=== PATIENT | male | born 1935 | race Caucasian/White ===

== ENCOUNTER 2017-09-22 02:32 | Inpatient (IN) | payer MEDICARE, OTHER ==
[2017-09-22 03:15] LABS: #Eosinphils 0.3 thou/uL (0.0-0.7); #Lymphocytes 1.6 thou/uL (1.20-3.40); #Monocytes 0.7 thou/uL (0.11-0.59); #Neutrophils 4.6 thou/uL (1.40-6.50); %Basophils 0.1 % (0.0-1.0); %Eosinophils 3.9 % (0.0-10.0); %Lymphocytes 22.3 % (21.0-51.0); %Monocytes 9.2 % (0.0-10.0); Hematocrit 40.3 % (42.0-52.0); Mean Platelet Volume 7.6 fL (7.4-10.4); White Blood Cell (WBC) Count 7.1 thou/uL (4.8-10.8)
[2017-09-22 03:20] LABS: Prothrombin Time 12.9 SEC (12.0-14.7)
[2017-09-22 03:32] LABS: ALT (SGPT) 19 U/L (8-55); AST (SGOT) 22 U/L (5-34); Alkaline Phosphatase 73 U/L (40-150); Anion Gap 12 mmol/L (10-20); BUN (Urea Nitrogen) 31 mg/dL (8.4-25.7); Bilirubin, Total 0.4 mg/dL (0.2-1.2); Calc. Creatinine Clearance 0 mL/min (70-130); Calcium 9.4 mg/dL (7.8-10.44); Carbon Dioxide 25 mmol/L (23-31); Chloride 104 mmol/L (98-107); Estimated GFR-MDRD 53; Globulin 2.7 g/dL (2.4-3.5); Magnesium 1.7 mg/dL (1.6-2.6); Protein, Total 6.5 g/dL (5.8-8.1)
[2017-09-22 03:35] LABS: Troponin I 0.011 ng/mL (< 0.028)
[2017-09-22] MEDS ORDERED: Nitroglycerin 0.4 MG TAB (25 Tab Bottle) ONE (05:47)
[2017-09-22] MEDS ORDERED: Nitroglycerin 2% Ointment 1 INCH/1 GM Packet ONE (06:00)
[2017-09-22 06:55] LABS: Troponin I 0.036 ng/mL (< 0.028)
--- NOTE | 2017-09-22 07:28 | RAD ---
FRONTAL VIEW CHEST: Date: 09/22/17 INDICATION: Chest pain. FINDINGS: Lungs are hyperinflated. No consolidation, effusion, or pneumothorax. No free air beneath the hemidia phragms. Cardiac silhouette is normal in size. IMPRESSION: 1. No lobar consolidation. 2. COPD. POS: [facility]
[2017-09-22] MEDS ORDERED: Ondansetron ODT 4 MG TAB PO PRN (08:08)
[2017-09-22] MEDS ORDERED: Ondansetron HCl/PF 4 MG/2 ML Vial IVP PRN ×2 (08:08→20:14)
[2017-09-22] MEDS ORDERED: Acetaminophen 325 MG TAB PO PRN ×2 (08:08→20:14)
[2017-09-22 10:03] LABS: Troponin I 0.054 ng/mL (< 0.028)
[2017-09-22] MEDS ORDERED: Morphine 4 MG/ML VIAL SLOW IVP PRN ×2 (11:22→20:14)
[2017-09-22] MEDS ORDERED: Nitroglycerin 0.4 MG TAB (25 Tab Bottle) SL PRN (11:26)
[2017-09-22] MEDS ORDERED: Enoxaparin Sodium 80 MG/0.8 ML SYRINGE SC SCH ×2 (12:00→21:00)
[2017-09-22] MEDS ORDERED: Docusate Sodium 100 MG/10 ML UDCUP PO PRN (12:23)
[2017-09-22] MEDS ORDERED: Polyethylene Glycol 3350 17 GM Packet PO PRN (12:23)
[2017-09-22] MEDS ORDERED: Sodium Chloride 0.9% 1,000 ML IV SCH (14:15)
[2017-09-22] MEDS ORDERED: Heparin 1000 UNIT/NS 500ML(OR) 1,000 ML ONE (14:15)
[2017-09-22] MEDS ORDERED: Communication Order-Pharmacy FS SCH (14:15)
--- NOTE | 2017-09-22 14:18 | HP ---
DATE OF ADMISSION: 09/22/2017 PRIMARY CARE PHYSICIAN: Dr. Juliocesar Zavala. CHIEF COMPLAINT: Chest pain. HISTORY OF PRESENT ILLNESS: The patient states he has been having some substernal pressure and chest tightness with ambulation longer than 20 minutes in duration. He subsequently had substernal chest pain that then radiated to left arm and left chin and neck while at rest and presented to the emergency department in the early hours of the morning. Initial troponin was found to be negative. Patient's family members at bedside verbalized understanding regarding elevation of troponin and 2 indeterminate levels. He has no prior coronary artery disease history. Does have a history of hypertension and hyperlipidemia, well controlled. He is stable on his baseline medications including MiraLax and docusate sodium regarding his history of constipation. He has no other acute complaints currently. FORMAL REVIEW OF SYSTEMS: No fevers, no chills, no cough, no congestion. Positive chest pain, worse with exertion, radiation to left arm and neck, no abdominal pain. Positive constipation. No dysuria or urinary frequency. No flank pain. No lower extremity edema. REVIEW OF THE MEDICAL HISTORY: Includes hypertension, hyperlipidemia, constipation and thrombocytopenia. PAST FAMILY/MEDICAL/SURGICAL/AND SOCIAL HISTORY: Include prior tobacco smoker, quit in 1990, 6-usbd-xuy-day history. History of shingles. No listed surgeries. No known drug allergies. Lives with spouse, ambulatory, unassisted. REVIEW OF LABORATORY WORK: White blood cell count 7.1, hemoglobin of 14.3, platelet count of 142. INR of 1.0. Potassium of 3.3, sodium of 138, chloride of 104, creatinine of 1.29, glucose of 142, magnesium of 1.7, calcium of 9.4, AST of 22, ALT of 19, CK-MB of 1.6, troponin 0.011, second troponin 0.036, third troponin 0.054, serum albumin of 3.8. Chest x-ray on admission, hyperinflation, possibly consistent with COPD, no lobular consolidation or otherwise acute cardiopulmonary events. PHYSICAL EXAMINATION: VITAL SIGNS: On arrival to the floor, temperature of 98.5, pulse of 92, respiratory rate of 18, oxygen saturation of 95% on room air, blood pressure 171 /81. GENERAL: The patient is alert and oriented, in no acute distress. HEENT: Head is normocephalic, atraumatic. Extraocular movements are intact. Sclerae are clear. Oral mucosa is moist. NECK: Supple, nontender. HEART: Regular rate and rhythm, no murmurs auscultated. Nitro paste to right anterior chest wall intact. LUNGS: Clear to auscultation bilaterally. No rubs or wheezes. ABDOMEN: Soft, nontender, positive bowel sounds throughout. EXTREMITIES: Lower extremities without cyanosis or edema. Peripheral pulses, dorsalis pedis, 2+ bilaterally. NEUROLOGIC: The patient is alert and oriented x3, no focal deficits. Speech is normal. ASSESSMENT AND PLAN: 1. Chest pain, rule out acute coronary syndrome. 2. Elevated troponin. 3. ST depression. 4. Hyperlipidemia. 5. Hypertension. 6. Constipation. 7. Thrombocytopenia. PLAN: Troponins have been trended since early a.m. with indeterminate rise. Repeat EKG at 6 in the morning showed ST depression in continuous leads in V4, 5 and 6. Patient's chest pain has been relieved with nitroglycerin. The patient tolerated aspirin. Cardiology requesting holding Plavix and Lovenox for possible intervention. Desired to continue patient's home angiotensin receptor christopher and statin medication within the next 24 hours. Our goal is additionally adding on full-dose aspirin as well as continuation of current therapy of morphine nitrogen p.r.n. and oxygen saturations to be held above 95% acutely, continuing patient's home MiraLax and docusate sodium as able currently and n.p.o. exceptions sips and chips for meds. Prior noted thrombocytopenia has been much improved; however, from prior check has been down 40 points. No acute bleeding. We will continue to trend while in the hospital. The patient had responded to the prednisone therapy on an outpatient basis here recently in the last couple of months. He remains to have petechiae to lower extremities bilaterally on exam today. MTDD
[2017-09-22] MEDS ORDERED: Heparin 10,000 UNITS/1 ML VIAL ONE ×5 (14:19→14:22)
[2017-09-22] MEDS ORDERED: Iopamidol 370 76% 100 ML VIAL ONE (14:50)
[2017-09-22] MEDS ORDERED: Fentanyl 100 MCG/2 ML VIAL ONE ×2 (14:50→16:15)
[2017-09-22] MEDS ORDERED: Iopamidol 370 76% 50 ML VIAL FS ONE (14:50)
[2017-09-22] MEDS ORDERED: Midazolam HCl 2 mg/2 ml Vial ONE ×2 (14:50→16:15)
[2017-09-22] MEDS ORDERED: Propofol 200 MG/20 ML VIAL ONE (15:08)
[2017-09-22] MEDS ORDERED: Protamine Sulfate 250 MG/25 ML VIAL ONE (15:08)
[2017-09-22] MEDS ORDERED: PHENYLEPHRINE-NS 100 MCG/ML 10 ML SYRINGE ONE (15:08)
[2017-09-22] MEDS ORDERED: Aminocaproic Acid 5 GM/20 ML VIAL ONE (15:08)
[2017-09-22] MEDS ORDERED: Heparin 30,000 units/30 ml VIAL ONE (15:08)
[2017-09-22] MEDS ORDERED: Nitroglycerin 4.9 GM Bottle ONE (15:22)
[2017-09-22] MEDS ORDERED: Metoprolol Tartrate 5 MG/5 ML VIAL ONE (15:22)
[2017-09-22] MEDS ORDERED: Fentanyl 250 MCG/5 ML VIAL ONE (15:24)
[2017-09-22] MEDS ORDERED: Midazolam HCl 5 mg/5 ml Vial ONE (15:25)
--- NOTE | 2017-09-22 15:33 | CON ---
DATE OF CONSULTATION: 09/22/2017 HISTORY OF PRESENT ILLNESS: Ras Palacios is an 82-year-old white male who has been having exertional chest tightness for the last 2 years. Rarely, this would also cause left arm tingling. If he would walk approximately 800 feet, this would start. Also at times when he would lie in bed, this would start. If he would drink some 7 Up and belch this would then be relieved in 5 minutes. He denied any shortness of breath, nausea, vomiting or diaphoresis with this discomfort. He could have this discomfort on a daily basis depending upon his activity level. This morning at 2 a.m., he got up to go to the bathroom and on his way back to bed, started having the discomfort. He again drank some 7 Up and resolved after 5 minutes. It then started again and again resolved after 5 minutes. With his third episode, he then decided to come to the emergency room and on the way to the hospital again, this resolved. He states that none of the episodes of pain this morning lasted over 5 minutes. Initial EKG was unremarkable. Subsequent EKGs have shown abnormalities and his troponin I is mildly elevated. With the episode this morning, he denies any nausea, vomiting , diaphoresis or shortness of breath. PAST MEDICAL HISTORY: Hypertension and hypercholesterolemia. No history of diabetes. He had significant thrombocytopenia with platelet count of 19,000 on 06/2017 and was placed on high dose steroids, which were then gradually tapered. He states he stopped taking the steroids 2 weeks ago. MEDICATIONS: Amlodipine 10 mg daily, aspirin 81 mg daily, atorvastatin 40 daily , hydrochlorothiazide 12.5 daily and losartan 100 mg daily. ALLERGIES: None. OPERATIONS: Hemorrhoidectomy. SOCIAL HISTORY: He smoked 1-1/2 packs per day, but stopped in 1990. He does not drink. 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 FAMILY HISTORY: Two brothers had CABG. REVIEW OF SYSTEMS: A 12-point review of systems otherwise unremarkable. PHYSICAL EXAMINATION: VITAL SIGNS: 166/78. HEENT: PERRL. NECK: Supple. CHEST: Clear. CARDIAC: S1 and S2 are normal, without any S3, S4 or murmurs. Carotid upstrokes normal without bruits. ABDOMEN: Normal bowel sounds, without tenderness, organomegaly or masses. EXTREMITIES: Revealed no clubbing, cyanosis or edema. NEUROLOGIC: Grossly intact. SKIN: Warm and dry. LABORATORY DATA: EKG initially revealed sinus rhythm with first degree AV block and no acute changes. The second EKG revealed 1-[address] segment depression in V3-V6. The third EKG revealed the ST segments returned to baseline, but there was T-wave inversion in V2 and V3. White count 7100, hemoglobin 14.3, hematocrit 40.3, platelets are up to 143, 000. INR 1.0. Sodium 138, potassium 3.3, chloride 104, carbon dioxide 25, BUN 31, creatinine 1.29, glucose 142, troponin I initially was normal and is increased to 0.036 and 0.054. IMPRESSION: 1. Obg-GC-kcshzpn elevation myocardial infarction. He has not had any further pain since he was given nitroglycerin sublingually, aspirin 162 mg and nitro paste 1 inch topically in the emergency room. He has not had anything to eat since last night. 2. Hypertension. 3. Hypercholesterolemia. 4. Former smoker. 5. Positive family history. 6. Thrombocytopenia, status post course of prednisone with platelets returning to normal. RECOMMENDATIONS: Mr. Palacios has had angina for at least 2 years and now has had an unstable course with 3 episodes of rapid succession early this morning with an increase in his troponin I and EKG changes indicative of ischemia. It was recommended he undergo cardiac catheterization. Risks of this were discussed with patient's family including , myocardial infarction, dye reaction, vascular injury, CVA, transfusion, limb loss, renal loss, etc. Also, risk of stent placement were discussed including , myocardial infarction, emergent CABG, restenosis, stent thrombosis etc. With his recent episode of thrombocytopenia, I would only place a bare metal stent and this was discussed with him. He understands and is agreeable to proceed. MELECIO
[2017-09-22] MEDS ORDERED: CEFAZOLIN/Water 2 GM/20 ML SYRINGE ONE (15:37)
--- NOTE | 2017-09-22 16:12 | CON ---
DATE OF CONSULTATION: 09/22/2017 DATE OF ADMISSION: 09/22/2017 REASON FOR CONSULTATION: Evaluate patient for emergency coronary artery bypass grafting. ATTENDING PHYSICIAN: Dr. Tanner Duarte. CONSULTING PHYSICIAN: Dr. Tanner Duarte. HISTORY OF PRESENT ILLNESS: Mr. Palacios is an 82-year-old gentleman, who was admitted in the [facility] hours with chest pain. Enzymes became positive with a troponin peak at 0.05. He was taken to the forestry laborer and found to have severe 3-vessel disease with near occlusion of his right coronary a rtery. An occluded LAD and diagonal and severe stenosis of OM. Ejection fraction is approximately 7 0% on ventriculogram. I have been asked to see him to discuss coronary artery bypass grafting on an emergency basis. PAST MEDICAL HISTORY: 1. Hypertension. 2. Dyslipidemia. 3. History of thrombocytopenia -- he was treated for his thrombocytopenia with steroids and his [facility] platelet count is 142,000. PAST SURGICAL HISTORY: None. MEDICATIONS: At home, 1. Aspirin 81 mg daily. 2. HCTZ 12.5 mg daily. 3. Norvasc 10 mg daily. 4. Cozaar 100 mg daily. 5. Atorvastatin 40 mg daily. ALLERGIES: None. SOCIAL HISTORY: He quit smoking in 1990. He is with multiple children, lives at home. REVIEW OF SYSTEMS: Ten-point review of systems is performed and is negative except as above. PHYSICAL EXAMINATION: GENERAL: This is a well-developed, well-nourished male, in no acute distress. VITAL SIGNS: Height 5 feet 11 inches, weight 191 pounds, BSA is 2.08, temperature is 98.5, pulse is 75 and regular, blood pressure is 166/78. HEENT: Sclerae nonicteric. Pupils are equal and round bilaterally. NECK: Supple. There are no carotid bruits. CHEST: Clear to auscultation and percussion bilaterally. HEART: Rhythm is regular, without murmur. ABDOMEN: Soft and nontender with no mass. EXTREMITIES: No cyanosis, clubbing, or edema. VASCULAR: Palpable carotid, radial, femoral, and dorsalis pedis pulses bilaterally. There is an art erial sheath in his right groin. VENOUS: There are no venous varicosities or venous stasis changes. PSYCHIATRIC: The patient is awake, alert, oriented to person, place, and time. LABORATORY DATA: Of note, hemoglobin is 14.3, platelet count is 142,000. Potassium is 3.3, creatini ne is 1.29. PT/INR is 1.0. Chest x-ray shows no dominant lung mass. His lungs are hyperinflated. ASSESSMENT AND PLAN: This is a very pleasant 82-year-old gentleman with non-ST elevation myocardial infarction and three-vessel coronary artery disease with chest pain on the forestry laborer table. I have di scussed urgent coronary artery bypass grafting with him, potential targets including LAD, diagonal, O M, and RCA. Risks, benefits, and options have been outlined.
[2017-09-22] MEDS ORDERED: Heparin 10,000 UNITS/1 ML VIAL 30,000 UNITS in Sodium Chloride 0.9% 1,000 ML FS SCH (16:15)
[2017-09-22] MEDS ORDERED: Phenylephrine 10 MG/NS 250 ML 250 ML ONE (16:25)
[2017-09-22] MEDS ORDERED: Norepinephrine 8 MG/0.9% NS 250 ML ONE (16:25)
[2017-09-22] MEDS ORDERED: D5 1/2 NS w/20 mEq KCL 1,000 ML IV SCH (20:14)
[2017-09-22] MEDS ORDERED: Post-Op Insulin Drip Protocol IVPB ONE (20:14)
[2017-09-22] MEDS ORDERED: Bisacodyl 5 MG TAB PO PRN (20:14)
[2017-09-22] MEDS ORDERED: Promethazine HCl 25 MG/ML VIAL IM PRN (20:14)
[2017-09-22] MEDS ORDERED: Fentanyl 100 MCG/2 ML VIAL SLOW IVP PRN ×2 (20:14)
[2017-09-22] MEDS ORDERED: Bisacodyl 10 MG SUPP PR PRN (20:14)
[2017-09-22] MEDS ORDERED: hydrALAZINE 20 MG/ML VIAL SLOW IVP PRN (20:14)
[2017-09-22] MEDS ORDERED: Hetastarch 6% 500 ML 500 ML IVPB PRN (20:14)
[2017-09-22] MEDS ORDERED: Guaifenesin DM 100-10/5 ML UDCUP PO PRN (20:14)
[2017-09-22] MEDS ORDERED: HYDROcodone/Acetaminophen 5/325 mg Tablet PO PRN ×2 (20:14)
[2017-09-22] MEDS ORDERED: Mag-Al 1200 mg/1200 mg/30 ML UDCUP PO PRN (20:14)
[2017-09-22] MEDS ORDERED: Nitroglycerin 50 MG/250 ML BOT 250 ML IVPB PRN (20:14)
[2017-09-22] MEDS ORDERED: Norepinephrine 8 MG/0.9% NS 250 ML IVPB PRN (20:14)
[2017-09-22] MEDS ORDERED: Dextrose 50% Abboject 50 ML SYRINGE SLOW IVP PRN (20:24)
[2017-09-22] MEDS ORDERED: Dextrose 5% in Water 1,000 ML IV PRN (20:24)
[2017-09-22] MEDS ORDERED: Insulin Regular 300 UNITS/3 ML VIAL SC PRN (20:24)
[2017-09-22] MEDS: Ketorolac Tromethamine 30 MG/ML VIAL IVP SCH ×2 (20:30→23:02)
[2017-09-22] MEDS ORDERED: Magnesium 2 GM/NS 0.9% 100 ML 2 GM in Premix Bag 1 BAG IVPB SCH (20:30)
[2017-09-22 20:51] LABS: Oxyhemoglobin 97.6 % (94.0-97.0); Sodium 140 mmol/L (135-148)
[2017-09-22 20:53] LABS: Mechanical Tidal Volume 600 ml; Mode SIMV; Pressure Support 10 cmH2O; Vent YES
[2017-09-22 20:56] LABS: Prothrombin Time 17.1 SEC (12.0-14.7)
[2017-09-22 20:57] LABS: #Eosinphils 0.5 thou/uL (0.0-0.7); #Lymphocytes 0.9 thou/uL (1.20-3.40); #Monocytes 0.7 thou/uL (0.11-0.59); #Neutrophils 11.9 thou/uL (1.40-6.50); %Eosinophils 3.5 % (0.0-10.0); %Lymphocytes 6.2 % (21.0-51.0); %Monocytes 5.1 % (0.0-10.0); Mean Platelet Volume 7.1 fL (7.4-10.4); PTT 33.6 SEC (22.9-36.1); Red Blood Cell (RBC) Count 3.49 mill/uL (4.70-6.10)
[2017-09-22] MEDS ORDERED: Famotidine/PF 20 mg/2ml Vial SLOW IVP SCH (21:00)
--- NOTE | 2017-09-22 21:00 | RAD ---
RADIOGRAPH CHEST 1 VIEW: Date: 09/22/17 Time: 7:54 p.m. HISTORY: 82-year-old male status post open heart surgery. COMPARISON: 09/22/17 at 2:23 a.m. FINDINGS: There is a new endotracheal tube with distal tip overlying mid thoracic trachea. There is a new right subclavian central venous catheter with distal tip overlying the SVC/right atrial junction. There ar e new sternotomy wires. No cardiomegaly, pulmonary edema, or consolidation. This is a supine image, w hich would be insensitive for pneumothorax detection. Midline and left paramedian chest tubes. Left l ateral costophrenic angle is excluded from the field of view. IMPRESSION: 1. Status post open heart surgery with life support lines as mentioned above. 2. No acute pulmonary findings. [facility] [] POS: [facility]
[2017-09-22 21:21] LABS: Anion Gap 9 mmol/L (10-20); BUN (Urea Nitrogen) 19 mg/dL (8.4-25.7); Calc. Creatinine Clearance 84 mL/min (70-130); Calcium 7.6 mg/dL (7.8-10.44); Carbon Dioxide 24 mmol/L (23-31); Chloride 112 mmol/L (98-107); Estimated GFR-MDRD Greater than 90
[2017-09-22] MEDS: Potassium Chloride 20 MEQ/100 ML PREMIX BAG IVPB PRN ×2 (21:30→23:44)
[2017-09-22] MEDS: CEFAZOLIN/Water 2 GM/20 ML SYRINGE SLOW IVP SCH (23:01)
[2017-09-22 23:09] LABS: Oxyhemoglobin 95.9 % (94.0-97.0); Sodium 141 mmol/L (135-148)
--- NOTE | 2017-09-22 23:16 | OP ---
DATE OF OPERATION: 09/22/2017 PREOPERATIVE DIAGNOSES: Coronary artery disease/status post-non ST elevation myocardial infarction/h ypertension/hyperlipidemia. POSTOPERATIVE DIAGNOSES: Coronary artery disease/status post-non ST elevation myocardial infarction/ hypertension/hyperlipidemia. PROCEDURE: Coronary artery bypass grafting x5: 1. Left internal mammary artery to 2.0 mm distal LAD - good conduit and target. 2. Reversed saphenous vein to 2.0 mm diagonal - good conduit and target. 3. Sequential reverse saphenous vein to 1.25 mm OM1 and 1.5 mm OM2 - good conduit and target. 4. Reverse saphenous vein to 2.0 mm RCA - good conduit and target. SURGEON: Jose Pfeiffer M.D. and Matt Liao M.D. ANESTHESIA: General endotracheal - Dr. Garrick Valle. PUMP TIME: 69 minutes. CROSS-CLAMP TIME: 52 minutes. LOW CORE TEMPER: 32 degrees Celsius. FORM DRAFTER: Sabrina Ramirez and Sue Livingston DRAINS. A 24-Mexican chest tubes x2. DRIPS: None. TRANSFUSIONS: None. DESCRIPTION OF PROCEDURE: After consent was obtained, the patient was brought to the operating room and placed in the supine position on the operating room table. Appropriate anesthetic monitor was pl aced and general endotracheal anesthesia induced. Chest, abdomen, and legs were prepped and draped i n usual sterile fashion. Greater saphenous veins was harvested from the left lower extremity using e ndoscopic technique. Wounds were irrigated and closed in layers. Median sternotomy was performed. Left internal mammary artery was harvested as a pedicle graft. Patient was systemically heparinized. Distal pedicle was divided and infused with papaverine. Thymic fat and pericardium were divided wi th electrocautery. Pericardial stay sutures were placed. Aortic and atrial cannulation was performe d. After adequate heparinization, retrograde prime was performed. The patient was placed on cardiop ulmonary bypass. On assessing the aorta, there was heavy calcification involving the anterior wall o f the aorta. A crossclamp was positioned to not involve the aortic calcification. Cross clamp was a pplied and an antegrade sanguinous cardioplegic arrest obtained. A 1300 mL of [place] blood cardiop legia was given. Topical cold solution was used. Reverse saphenous vein was anastomosed in end-to-s darian fashion with the RCA and end-to-side fashion with running 7-0 Prolene suture. Anastomosis was te sted and was hemostatic. Reverse saphenous vein was anastomosed in a ehiw-yz-hcys fashion with the O M1 in end-to-side fashion to the OM2 in sequential fashion. Anastomoses were tested and was hemostat ic. Reversed saphenous vein was anastomosed to the diagonal in end-to-side fashion with running 7-0 Prolene suture. Anastomosis was tested and was hemostatic. Mammary artery was brought through a win abel in the pericardium and anastomosed to the LAD in end-to-side fashion with running 7-0 Prolene sut ure. On release of the mammary clamp, there was good hooding in the anastomosis and good distal flow . Pedicle was secured with interrupted 6-0 Prolene suture. Punch sites were created for 2 proximal anastomoses. Saphenous vein to the RCA and saphenous vein to the OM grafts were anastomosed to the a ortic root. Crossclamp was removed. Saphenous vein to the diagonal was anastomosed to the sidewall of the OM graft. The grafts were deaired. Anastomoses were inspected for hemostasis. The patient w as warmed and weaned from cardiopulmonary bypass. After resumption of sinus rhythm, good hemodynamic s, temperature greater than 36.5, bypass was discontinued. Transfusions were given. Protamine was a dministered. Decannulation was performed and pursestring sutures secured. The aortic cannulation si te was reinforced with a vein pledgeted 4-0 Prolene suture. The venous cannulation site was reinforc ed with 4-0 Prolene suture. After adequate hemostasis had been obtained, vancomycin paste was placed on the sternal edges. The sternum was then closed with #7 wire. Sternum was then treated with plat elet-rich plasma. Wires were twisted. Wounds were irrigated, treated with platelet-poor plasma, and closed in multiple layers. The patient tolerated the procedure well, and was transferred to the [facility] ensive care unit in stable, but critical condition.
[2017-09-22 23:18] LABS: Hematocrit 29.6 % (42.0-52.0)
[2017-09-22 23:22] LABS: Vent YES
[2017-09-22 23:23] LABS: Pressure Support 5 cmH2O; Spontaneous Rate 19 min
[2017-09-22 23:24] LABS: Mode CPAP
[2017-09-23] MEDS: Ketorolac Tromethamine 30 MG/ML VIAL IVP SCH ×3 (05:28→17:29)
[2017-09-23 07:38] LABS: #Eosinphils 0.1 thou/uL (0.0-0.7); #Lymphocytes 0.8 thou/uL (1.20-3.40); #Monocytes 0.9 thou/uL (0.11-0.59); #Neutrophils 11.3 thou/uL (1.40-6.50); %Basophils 0.1 % (0.0-1.0); %Eosinophils 0.6 % (0.0-10.0); %Lymphocytes 6.2 % (21.0-51.0); %Monocytes 6.7 % (0.0-10.0); Hematocrit 29.7 % (42.0-52.0); Mean Platelet Volume 8.3 fL (7.4-10.4); Red Blood Cell (RBC) Count 3.32 mill/uL (4.70-6.10); White Blood Cell (WBC) Count 13.1 thou/uL (4.8-10.8)
[2017-09-23 07:43] LABS: Anion Gap 12 mmol/L (10-20); BUN (Urea Nitrogen) 21 mg/dL (8.4-25.7); Calc. Creatinine Clearance 65 mL/min (70-130); Calcium 7.9 mg/dL (7.8-10.44); Carbon Dioxide 21 mmol/L (23-31); Chloride 113 mmol/L (98-107); Estimated GFR-MDRD 73
[2017-09-23] MEDS: CEFAZOLIN/Water 2 GM/20 ML SYRINGE SLOW IVP SCH ×2 (08:08→15:08)
[2017-09-23] MEDS: Aspirin 325 MG TAB PO SCH (08:08)
[2017-09-23] MEDS: Famotidine 20 MG TAB PO SCH ×2 (08:15→21:57)
--- NOTE | 2017-09-23 08:37 | RAD ---
PORTABLE CHEST: HISTORY: Postop sternotomy. COMPARISON: 09/22/17. FINDINGS: Heart size normal. Postop sternotomy change noted. Lungs are clear of infiltrate. No evidence of v ascular congestion. Some mild linear atelectatic changes again noted. Central line is in adequate p osition overlying the SVC. The ET tube has been removed. IMPRESSION: No acute finding. POS: [facility]
[2017-09-23] MEDS ORDERED: Atorvastatin Calcium 40 MG TAB PO SCH (09:00)
[2017-09-23] MEDS ORDERED: Amlodipine 10 MG TAB PO SCH (09:00)
[2017-09-23] MEDS ORDERED: Magnesium 2 GM/NS 0.9% 100 ML 2 GM in Premix Bag 1 BAG IVPB SCH (09:00)
[2017-09-23] MEDS ORDERED: Polyethylene Glycol 3350 17 GM Packet PO SCH (09:00)
[2017-09-23] MEDS ORDERED: Aspirin 325 MG TAB PO SCH (09:00)
[2017-09-23] MEDS ORDERED: Losartan Potassium 25 MG TAB PO SCH (09:00)
--- NOTE | 2017-09-23 10:04 | PRG ---
DATE OF SERVICE: 09/23/2017 SUBJECTIVE: The patient is post-surgical day #1 after 5-vessel CABG, extubated. He is feeling well. Denies pain at this time. He denies shortness of breath. OBJECTIVE: VITAL SIGNS: Blood pressure 114/56, respirations 22, heart rate 81, oxygen saturation 95% on room ai r. GENERAL: Alert and oriented x3 with no acute distress. HEENT: Normocephalic. Pupils are equally round and react to light. Extraocular muscles intact. Mo ist mucous membranes with nonerythematous throat. HEART: Regular rate and rhythm. No murmurs. Sternotomy wound covered by a bandage, patient holding a post-surgical pillow. LUNGS: Clear to auscultation bilaterally. ABDOMEN: Soft, nontender, nondistended. Bowel sounds heard throughout. EXTREMITIES: No cyanosis, clubbing, or edema. Left leg surgical wound covered by a bandage. PSYCHIATRIC: The patient in good spirits. No current anxiety. LABORATORY DATA: White blood cell count 13.1, hemoglobin 10.2, hematocrit 29.7, MCV 89.6, platelets 117. ASSESSMENT AND PLAN: 1. Etq-YG-beqonubwj myocardial infarction. Denies chest pain at this time. 2. Severe coronary artery disease, status post 5-vessel coronary artery bypass grafting, doing well post-surgically. We will continue to monitor in the ICU through today. Plan per Cardiovascular Surg pancho. 3. Hypertension. Blood pressure is well controlled. 4. Hypercholesterolemia. 5. Former smoker.
[2017-09-23] MEDS: Atorvastatin Calcium 40 MG TAB PO SCH (21:57)
[2017-09-24] MEDS: Ketorolac Tromethamine 30 MG/ML VIAL IVP SCH ×4 (00:26→17:30)
[2017-09-24] MEDS ORDERED: Mineral Oil ENEMA PR PRN (08:47)
[2017-09-24] MEDS ORDERED: Milk Of Magnesia 30 ML UDCUP PO PRN (08:47)
[2017-09-24] MEDS ORDERED: HYDROcodone/Acetaminophen 5/325 mg Tablet PO PRN ×2 (08:47)
[2017-09-24] MEDS ORDERED: Bisacodyl 10 MG SUPP PR PRN (08:47)
[2017-09-24] MEDS ORDERED: Artificial Tears 18 DROP/0.9 ML EA EYE PRN (08:47)
[2017-09-24] MEDS ORDERED: Nitroglycerin 0.4 MG TAB (25 Tab Bottle) SL PRN (08:47)
[2017-09-24] MEDS ORDERED: Fentanyl 100 MCG/2 ML VIAL SLOW IVP PRN ×2 (08:47)
[2017-09-24] MEDS ORDERED: diphenhydrAMINE 25 MG CAP PO PRN (08:47)
[2017-09-24] MEDS ORDERED: Zolpidem Tartrate 5 MG TAB PO PRN (08:47)
[2017-09-24] MEDS ORDERED: Mag-Al 1200 mg/1200 mg/30 ML UDCUP PO PRN (08:47)
[2017-09-24] MEDS ORDERED: Ondansetron HCl/PF 4 MG/2 ML Vial IVP PRN (08:47)
[2017-09-24] MEDS ORDERED: Bisacodyl 5 MG TAB PO PRN (08:47)
--- NOTE | 2017-09-24 08:58 | RAD ---
PORTABLE CHEST: HISTORY: Postop sternotomy followup. COMPARISON: 09/23/17. FINDINGS: Heart and mediastinum unremarkable. Postop sternotomy change. Some mild atelectatic changes in the left lung. No focal infiltrate or vascular congestion. IMPRESSION: Stable chest findings from yesterday. POS: [facility]
[2017-09-24] MEDS: Famotidine 20 MG TAB PO SCH ×3 (09:04→21:20)
[2017-09-24] MEDS: Furosemide 40 MG TAB PO SCH (09:06)
[2017-09-24] MEDS: Aspirin 325 MG TAB PO SCH (09:06)
[2017-09-24] MEDS ORDERED: Polyethylene Glycol 3350 17 GM Packet PO SCH (11:15)
--- NOTE | 2017-09-24 13:20 | PRG ---
DATE OF SERVICE: 09/24/2017 SUBJECTIVE: The patient is post-surgical day #2 after 5-vessel CABG. He is sitting up in chair, eat ing lunch. He is feeling well. Denies complaints at this time. He denies shortness of breath and p ain. PHYSICAL EXAMINATION: VITAL SIGNS: Heart rate 90, blood pressure 143/67, respirations 22, and oxygen saturation 98% on neal m air. GENERAL: Alert and oriented x3, in no acute distress. HEENT: Normocephalic. Pupils are equally round and reactive to light. Extraocular muscles intact. Moist mucous membranes. HEART: Regular rate and rhythm, no murmurs, sternotomy wound covered by a bandage. LUNGS: Clear to auscultation bilaterally, no wheezes. ABDOMEN: Soft, nontender, nondistended. Bowel sounds heard throughout. EXTREMITIES: No cyanosis, clubbing, or edema. LABORATORY DATA: No new labs. ASSESSMENT AND PLAN: 1. Mpp-FI-njdsise elevation myocardial infarction. 2. Severe coronary disease, status post 5-vessel coronary artery bypass grafting. Doing well after surgery. The patient is stable enough to go to telemetry and waiting for a bed open. 3. Hypertension. Blood pressure is stable. 4. Hypercholesterolemia. 5. Former smoker.
[2017-09-24] MEDS ORDERED: Metoprolol Tartrate 25 MG TAB PO SCH (16:45)
[2017-09-24] MEDS ORDERED: Digoxin 0.5 MG/2 ML AMP SLOW IVP SCH ×3 (16:45→22:00)
[2017-09-24] MEDS ORDERED: Digoxin 0.5 MG/2 ML AMP ONE (17:08)
[2017-09-24] MEDS ORDERED: Amiodarone HCl 150 MG, Admixture Fee 1 EACH in Dextrose 5% in Water 100 ML IVPB SCH ×3 (17:15)
[2017-09-24] MEDS: Amiodarone In Dextrose,Iso-Osm 200 ML IVPB SCH ×2 (17:26→22:17)
[2017-09-24] MEDS: Atorvastatin Calcium 40 MG TAB PO SCH (21:20)
[2017-09-24] MEDS: Metoprolol Tartrate 25 MG TAB PO SCH (21:22)
[2017-09-25] MEDS: Ketorolac Tromethamine 30 MG/ML VIAL IVP SCH ×4 (00:23→19:38)
[2017-09-25 06:21] LABS: Anion Gap 10 mmol/L (10-20); BUN (Urea Nitrogen) 27 mg/dL (8.4-25.7); Calc. Creatinine Clearance 69 mL/min (70-130); Calcium 8.2 mg/dL (7.8-10.44); Carbon Dioxide 23 mmol/L (23-31); Chloride 107 mmol/L (98-107); Estimated GFR-MDRD 72
[2017-09-25] MEDS ORDERED: Metolazone 5 MG TAB PO SCH (06:30)
--- NOTE | 2017-09-25 07:52 | PRG ---
DATE OF SERVICE: 09/25/2017 SUBJECTIVE: The patient is postsurgical day #3 after 5-vessel CABG. He is sitting up on the side of the bed using incentive spirometry successfully. His sternotomy bandage is off and healing well. H domingo reports feeling good. Late yesterday he went into atrial fibrillation with minimal symptoms. The rate was able to be controlled with digoxin and metoprolol. Today rhythm is in sinus with a rate of 77. PHYSICAL EXAMINATION: VITAL SIGNS: Heart rate 77, blood pressure 129/67, respirations 23, 95% on room air. GENERAL: Alert and oriented x3 with no acute distress. HEENT: Normocephalic. Pupils equally round, react to light. Extraocular muscles intact. Moist muc ous membranes. SKIN: Sternotomy wounds healing well, no erythema or discharge. HEART: Regular rate and rhythm, no murmurs. LUNGS: Clear to auscultation bilaterally, no wheezes. ABDOMEN: Soft, nontender, nondistended. Bowel sounds heard throughout. EXTREMITIES: Bilateral legs with Vimal hose applied. No significant edema. LABORATORY DATA: Sodium 136, potassium 3.9, chloride 107, carbon dioxide 23, BUN 27, creatinine 0.99 , glucose 93, calcium 8.2. ASSESSMENT AND PLAN: 1. Mah-JM-mfogjzh elevation myocardial infarction. 2. Coronary artery disease, status post 5-vessel coronary artery bypass graft. The patient denies p ain, doing well. He is stable enough to go to telemetry. 3. Atrial fibrillation, currently rate controlled and in sinus rhythm. 4. Hypertension. Blood pressure is stable. 5. Hypercholesterolemia. 6. Former smoker.
[2017-09-25] MEDS ORDERED: Potassium Chloride 20 MEQ in Premix Bag 1 BAG IVPB SCH (08:00)
[2017-09-25] MEDS: Polyethylene Glycol 3350 17 GM Packet PO SCH (08:09)
[2017-09-25] MEDS: Aspirin 325 MG TAB PO SCH (08:09)
[2017-09-25] MEDS: Furosemide 40 MG TAB PO SCH (08:09)
[2017-09-25] MEDS: Famotidine 20 MG TAB PO SCH ×2 (08:09→21:11)
[2017-09-25] MEDS: Metoprolol Tartrate 25 MG TAB PO SCH ×2 (08:09→21:14)
[2017-09-25] MEDS: Amiodarone In Dextrose,Iso-Osm 200 ML IVPB SCH (10:43)
[2017-09-25] MEDS: Atorvastatin Calcium 40 MG TAB PO SCH (21:07)
[2017-09-26] MEDS: Acetaminophen 325 MG TAB PO PRN ×2 (02:51→19:15)
--- NOTE | 2017-09-26 08:06 | PRG ---
DATE OF SERVICE: 09/26/2017 Postop day #4, status post coronary artery bypass x5. SUBJECTIVE: The patient is doing well. No complaints of chest pain, shortness of breath. He is amb ulating in the hallways. OBJECTIVE: VITAL SIGNS: Temperature 98.9, pulse 117, respirations 18, pulse ox 94, blood pressure 136/81. HEART: Regular rate and rhythm with frequent PVCs. LUNGS: Clear. ABDOMEN: Soft. EXTREMITIES: With trace edema. LABORATORY DATA: None. ASSESSMENT: 1. Postoperative day #4, status post coronary artery bypass grafting x5. 2. Hmn-BI-ibynxkwcc myocardial infarction. 3. Atrial fibrillation converted to sinus rhythm. 4. Hypertension. 5. Hyperlipidemia. 6. Former smoker. PLAN: 1. Continue postoperative care. 2. The patient agreeing to [facility] cardiac rehabilitation. 3. We will continue to follow.
[2017-09-26] MEDS ORDERED: Metolazone 5 MG TAB PO SCH (08:15)
[2017-09-26] MEDS: Aspirin 325 MG TAB PO SCH (08:34)
[2017-09-26] MEDS: Famotidine 20 MG TAB PO SCH ×2 (08:35→21:19)
[2017-09-26] MEDS: Metoprolol Tartrate 25 MG TAB PO SCH ×2 (08:36→21:19)
[2017-09-26] MEDS: Furosemide 40 MG TAB PO SCH (08:36)
[2017-09-26] MEDS: Polyethylene Glycol 3350 17 GM Packet PO SCH (08:38)
[2017-09-26] MEDS ORDERED: Metoprolol Tartrate 25 MG TAB PO SCH ×2 (09:00→10:30)
[2017-09-26 13:25] LABS: Oxyhemoglobin 97.6 % (94.0-97.0); Sodium 139 mmol/L (135-148)
[2017-09-26 13:25] LABS: Oxyhemoglobin 97.6 % (94.0-97.0); Sodium 138 mmol/L (135-148)
[2017-09-26 13:25] LABS: Base Excess -0.3 mEq/L (0 (+/- 2.5)); O2 Content (venous) 7.5 VOL% (12.5-17.5); pH (venous) 7.39 (7.35-7.45)
[2017-09-26 13:26] LABS: Oxyhemoglobin 97.5 % (94.0-97.0); Sodium 139 mmol/L (135-148)
[2017-09-26 13:27] LABS: Oxyhemoglobin 97.7 % (94.0-97.0); Sodium 140 mmol/L (135-148)
[2017-09-26 13:27] LABS: Oxyhemoglobin 97.5 % (94.0-97.0); Sodium 139 mmol/L (135-148)
[2017-09-26 14:05] LABS: Mode OR ABG; Vent YES
[2017-09-26 14:06] LABS: Mode OR ABG; Vent YES
[2017-09-26 14:07] LABS: Mode OR ABG; Vent YES
[2017-09-26 14:08] LABS: Mode OR ABG; Vent YES
[2017-09-26 14:08] LABS: Mode OR ABG; Vent YES
[2017-09-26] MEDS: Guaifenesin DM 100-10/5 ML UDCUP PO PRN ×2 (16:27→21:23)
--- NOTE | 2017-09-26 16:41 | EKG ---
Test Reason : Blood Pressure : / mmHG Vent. Rate : 093 BPM Atrial Rate : 093 BPM P-R Int : 222 ms QRS Dur : 092 ms QT Int : 380 ms P-R-T Axes : 077 060 079 degrees QTc Int : 472 ms Sinus rhythm with 1st degree A-V block with frequent Premature ventricular complexes Nonspecific T wave abnormality Prolonged QT Abnormal ECG Confirmed by GIOVANNI ELLISON ([id number]) on 09/26/2017 4:40:32 PM Referred By: PAYTON Confirmed By:GIOVANNI ELLISON
[2017-09-26] MEDS: Atorvastatin Calcium 40 MG TAB PO SCH (21:19)
[2017-09-27 06:12] VITALS: BMI 27.1
--- NOTE | 2017-09-27 08:06 | PRG ---
DATE OF SERVICE: 09/27/2017 SUBJECTIVE: The patient is doing well. He is ambulating in the hallways. He gets occasional short of breath, but continues to increase his activity. No complaints of chest pain. OBJECTIVE: VITAL SIGNS: Temperature 98.3, pulse 76, respiration 20, pulse ox 94, blood pressure 121/62. HEART: Regular rate and rhythm with frequent PACs and PVCs. LUNGS: Clear. ABDOMEN: Soft. EXTREMITIES: With no edema. I's and O's -350. EKG: Normal sinus rhythm with frequent PACs and PVCs. ASSESSMENT: 1. Postoperative day #5, status post coronary artery bypass grafting x5. 2. Vii-NF-yevopxujo myocardial infarction. 3. Atrial fibrillation converted to sinus rhythm. 4. Hypertension. 5. Hyperlipidemia. 6. Former smoker. PLAN: 1. Increase activity. 2. Discharge planning for cardiac rehabilitation. Patient desires to do outpatient cardiac rehabili tation. The patient to discuss with Dr. Duarte. 3. We will continue to follow.
[2017-09-27] MEDS: Polyethylene Glycol 3350 17 GM Packet PO SCH (09:04)
[2017-09-27] MEDS: Metoprolol Tartrate 25 MG TAB PO SCH ×2 (09:04→21:22)
[2017-09-27] MEDS: Aspirin 325 MG TAB PO SCH (09:04)
[2017-09-27] MEDS: Furosemide 40 MG TAB PO SCH (09:04)
[2017-09-27] MEDS: Famotidine 20 MG TAB PO SCH ×2 (09:04→21:21)
[2017-09-27] MEDS: Acetaminophen 325 MG TAB PO PRN ×2 (09:11→19:45)
[2017-09-27] MEDS: Atorvastatin Calcium 40 MG TAB PO SCH (21:21)
[2017-09-28 08:07] VITALS: BP 137/64; TEMP 98.7
[2017-09-28] MEDS: Famotidine 20 MG TAB PO SCH (08:09)
[2017-09-28] MEDS: Aspirin 325 MG TAB PO SCH (08:09)
[2017-09-28] MEDS: Furosemide 40 MG TAB PO SCH (08:09)
[2017-09-28] MEDS: Metoprolol Tartrate 25 MG TAB PO SCH (08:09)
[2017-09-28] MEDS: Polyethylene Glycol 3350 17 GM Packet PO SCH (08:10)
--- NOTE | 2017-09-28 08:19 | DIS ---
DATE OF DISCHARGE: 09/28/2017 DISCHARGE DIAGNOSES: 1. Postop day #6 status post coronary artery bypass grafting x5. 2. Rte-MD-yznrsop elevation myocardial infarction. 3. Atrial converted to sinus rhythm. 4. Hypertension. 5. Hyperlipidemia. 6. Former smoker. 7. Reactive every airway disease. DISCHARGE MEDICATIONS: Symbicort 160/4.5 two puffs p.o. b.i.d., amiodarone 400 p.o. b.i.d. x10 days, then amiodarone one p.o. b.i.d. x2 weeks, [place] 5/325 mg 1-2 q.6 p.o. q.8h. p.r.n. #60, metoprolol 2 5 p.o. b.i.d., aspirin 325 one p.o. daily, Lipitor 40 daily. FOLLOWUP: Follow up with Dr. Duarte in 3-4 weeks, Dr. Pfeiffer in 2 weeks, Dr. Ebenezer Zavala in 1 week. BRIEF HISTORY: This is an 82-year-old American male who presented with substernal chest pain and tigh tness, especially with ambulation lasting longer than 20 minutes in duration. The pain then began ra diating down the left arm and left chin and neck while at rest. He then presented to the emergency r oom and was found to have an elevated troponin. HOSPITAL COURSE: The patient was admitted. Cardiology was consulted. Dr. Duarte took the patient to the cardiac catheterization lab and he was found to have extensive coronary artery disease. Dr. Jose Pfeiffer was consulted. The patient underwent a 5-vessel bypass. This included left internal m ammary to the distal LAD, reverse saphenous to a diagonal, sequential reverse saphenous to obtuse ma rginal 1 and 2 and reverse saphenous vein to the right coronary artery. Postoperatively the patient did well. He did have several bouts of atrial fibrillation and frequent PACs and PVCs. He was start ed on amiodarone and by the time of discharge his ectopy was minimal. He is having no chest pain. H e does have chest discomfort from his surgery. He is having some mild wheezing. Symbicort was initi ated. He will be discharged at this time and follow up in the office. Discharge H&H is 10 and 29. White count 13.1, sodium 136, potassium 3.9, creatinine 0.99, BUN 27, gl ucose 122, 93.
== END 2017-09-28 10:33 | disposition home or self-care (01) | DRG 234 ==
LOC: ERS 02:32 → 2SW 04:44 → CCU 17:01 → OBSVTOIN 17:06 → 2NO 09-25 14:22
PROVIDERS: ADMIT Family Medicine; ATTEND Family Medicine
PROC: 02100Z9 Bypass Coronary Artery, One Artery from Left Internal Mammary, Open Approach (ICD-10-PCS; principal; 2017-09-22)
PROC: 4A023N7 Measurement of Cardiac Sampling and Pressure, Left Heart, Percutaneous Approach (ICD-10-PCS; 2017-09-22)
PROC: 021309W Bypass Coronary Artery, Four or More Arteries from Aorta with Autologous Venous Tissue, Open Approach (ICD-10-PCS; 2017-09-22)
PROC: 06BQ4ZZ Excision of Left Saphenous Vein, Percutaneous Endoscopic Approach (ICD-10-PCS; 2017-09-22)
PROC: 5A1221Z Performance of Cardiac Output, Continuous (ICD-10-PCS; 2017-09-22)
PROC: B2111ZZ Fluoroscopy of Multiple Coronary Arteries using Low Osmolar Contrast (ICD-10-PCS; 2017-09-22)
PROC: B2151ZZ Fluoroscopy of Left Heart using Low Osmolar Contrast (ICD-10-PCS; 2017-09-22)
DX: I21.4 Non-ST elevation (NSTEMI) myocardial infarction (principal); D69.6 Thrombocytopenia, unspecified; I48.0 Paroxysmal atrial fibrillation; I25.10 Atherosclerotic heart disease of native coronary artery without angina pectoris; Z87.891 Personal history of nicotine dependence; I10 Essential (primary) hypertension; K59.00 Constipation, unspecified; E78.00 Pure hypercholesterolemia, unspecified; J45.909 Unspecified asthma, uncomplicated
CPT/HCPCS: 36415; 36416; 71010; 80048; 80053; 80061; 82553; 82805; 83735; 83880; 84484; 85025; 85610; 85730; 86850; 86900; 86901; 93005; 93010; 93458; 93798; 94002; 94150; 94640; 96360; 99152; 99153; C1751; C1769; J0282; J1160; J1644; J1815; J1885; J2250; J2405; J2704; J2720; J3010; J3370; J3475; J3480; J7050; J7070; J7620; P9045; S0017; S0028

== ENCOUNTER 2017-10-02 13:44 | Inpatient (IN) | payer MEDICARE, OTHER ==
[2017-10-02 14:16] LABS: Actual Bicarbonate (HCO3a) 25.3 mEq/L (22-26); Base Excess (BEa) 1.8 mEq/L (0 (+/-) 2.5); CO2 Tension 34.9 mmHg (35.0-45.0); Calcium, Ionized 1.1 mmol/L (1.12-1.30); Hematocrit-ABG 32.3 % (42.0-52.0); Hemoglobin (Hb) 8.7 g/dL (14.0-18.0); pH, Arterial 7.48 (7.35-7.45)
[2017-10-02 14:20] LABS: Analyzer IN Cardio ER
[2017-10-02 14:21] LABS: ALV-art Gradient 57.415 (0-20)
[2017-10-02] MEDS ORDERED: Dexamethasone 10 MG/ML VIAL ONE (14:31)
[2017-10-02] MEDS ORDERED: Magnesium Sulfate 2 GM/100 ML BAG ONE (14:32)
[2017-10-02 14:35] LABS: #Eosinphils 0.1 thou/uL (0.0-0.7); #Lymphocytes 0.8 thou/uL (1.20-3.40); #Monocytes 0.7 thou/uL (0.11-0.59); #Neutrophils 8.8 thou/uL (1.40-6.50); %Basophils 0.1 % (0.0-1.0); %Eosinophils 0.8 % (0.0-10.0); %Lymphocytes 7.4 % (21.0-51.0); %Monocytes 6.7 % (0.0-10.0); Mean Corpuscular HGB CONC 33.9 g/dL (32.0-36.0); Mean Corpuscular Hemoglobin 30.6 pg (27.0-31.0); Mean Corpuscular Volume 90.3 fl (80.0-94.0); Mean Platelet Volume 7.1 fL (7.4-10.4); Platelet Count 284 thou/uL (130-400); RBC Distribution Width 13.7 % (11.5-14.5); Red Blood Cell (RBC) Count 2.94 mill/uL (4.70-6.10); White Blood Cell (WBC) Count 10.3 thou/uL (4.8-10.8)
[2017-10-02 14:42] LABS: INR-International Normal Ratio 1.1; PTT 30.2 SEC (22.9-36.1); Prothrombin Time 14.6 SEC (12.0-14.7)
--- NOTE | 2017-10-02 14:53 | RAD ---
AP VIEW CHEST: Date: 10/02/17 HISTORY: Dyspnea. FINDINGS: Comparison made to previous exam from 09/24/17. AP view of chest demonstrates sternotomy wires seen. The right subclavian central line has been remov ed. The left-sided chest tube has been removed. There is some minimal blunting of the left costophren ic angle compatible with small left-sided pleural effusion. No evidence of pneumothorax seen. IMPRESSION: Interval development of a small left-sided pleural effusion POS: [facility]
[2017-10-02 14:56] LABS: CKMB 1.9 ng/mL (0-6.6); Troponin I 0.044 ng/mL (< 0.028)
[2017-10-02 14:58] LABS: ALT (SGPT) 14 U/L (8-55); AST (SGOT) 24 U/L (5-34); Albumin 3.3 g/dL (3.4-4.8); Alkaline Phosphatase 73 U/L (40-150); Anion Gap 11 mmol/L (10-20); BUN (Urea Nitrogen) 21 mg/dL (8.4-25.7); Bilirubin, Total 0.6 mg/dL (0.2-1.2); CK (CPK) 77 U/L (30-200); Calc. Creatinine Clearance 0 mL/min (70-130); Calcium 8.3 mg/dL (7.8-10.44); Carbon Dioxide 27 mmol/L (23-31); Chloride 91 mmol/L (98-107); Estimated GFR-MDRD 64; Globulin 2.4 g/dL (2.4-3.5); Glucose 141 mg/dL (83-110); Lipase 33 U/L (8-78); Potassium 3.6 mmol/L (3.5-5.1); Protein, Total 5.7 g/dL (5.8-8.1); Sodium 125 mmol/L (136-145)
[2017-10-02] MEDS ORDERED: Furosemide 40 MG/4 ML VIAL ONE (15:42)
[2017-10-02] MEDS ORDERED: Ondansetron HCl/PF 4 MG/2 ML Vial IVP PRN (17:34)
[2017-10-02] MEDS ORDERED: Ondansetron ODT 4 MG TAB SL PRN (17:34)
[2017-10-02 19:08] LABS: Lactic Acid 1.1 mmol/L (0.5-2.2)
[2017-10-02] MEDS ORDERED: Furosemide 40 MG/4 ML VIAL SLOW IVP SCH (21:00)
[2017-10-02] MEDS ORDERED: Amiodarone 200 MG TAB PO SCH (22:45)
[2017-10-02] MEDS ORDERED: Atorvastatin Calcium 40 MG TAB PO SCH (23:15)
[2017-10-02] MEDS ORDERED: Metoprolol Tartrate 25 MG TAB PO SCH (23:15)
--- NOTE | 2017-10-03 02:15 | HP ---
DATE OF ADMISSION: 10/02/2017 CHIEF COMPLAINT: Dyspnea on exertion. HISTORY OF PRESENT ILLNESS: This is an 82-year-old male who comes to the emergency room wi th worsening dyspnea on exertion over the last couple of days. Following his postop instructions, he came back to the emergency room. He is 10 days postop of 5-vessel CABG. This was performed on 09/08 and was discharged last week on the . In the emergency room, he was found to have a new f inding of an elevated beta natriuretic peptide over 1000 and sodium of less than 130. The patient st ates he has had no pain and feels fine now after having his nebs done at some diuresis. PAST MEDICAL HISTORY: Positive for atherosclerotic coronary vascular disease, hypertension, hyperlip idemia, and a history of thrombocytopenia. His platelets at the time of surgery was 142,000. PAST SURGICAL HISTORY: Recent CABG x5. He is postop day 10. ALLERGIES: No known drug allergies. CURRENT MEDICATIONS: Aspirin, Lipitor 40 mg a day, amiodarone 400 mg b.i.d., metoprolol 25 mg b.i.d. , Symbicort and also p.r.n. Tuttle. In the past, he had been on several blood pressure medicines, but that was not necessarily in his discharge instructions. SOCIAL HISTORY: He had been a smoker, but quit in 1990. He is , has multiple children and li ves at home. 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 FAMILY HISTORY: Noncontributory. REVIEW OF SYSTEMS: No headache, no fever, no chills, no chest pain, has not had any drainage from hi s wounds. Denies any nausea or vomiting. Denies any hematochezia, hemoptysis, or hematemesis. Harrison es any changes to bowel or bladder habits. No paresis or paresthesias. Denies any suicidal or homic idal ideations. Denies any auditory or visual hallucinations. PHYSICAL EXAMINATION: GENERAL: He is lying comfortably in bed. His daughter is in the room with him. He is in no acute d istress. Once again, does not complain of any pain. He says his shortness of breath is essentially gone since he got up here from the emergency room. After being diuresed, at least initiated diuresis as well as several neb treatments. VITAL SIGNS: Temperature is 98.2, pulse is 64, respiration is 20, satting 97% on 2 liters and has a BP of 158/71. HEENT: Shows normocephalic, atraumatic cranium with pupils that are equal, round, reactive to light and accommodation. Extraocular movements are intact. Mucosal membranes are moist. NECK: There is no JVD, or bruits. LUNGS: Clear to auscultation bilaterally. Possible rales in both bases. HEART: S1, S2, with a slight S3 gallop. No rubs, heaves, or lifts. ABDOMEN: Soft, nontender, nondistended. CHEST: Wounds are all healing well. There is diffuse scattered ecchymosis around his body, especial ly upper torso consistent with postop status. GENITOURINARY: Deferred. EXTREMITIES: Good palpable pulses in all 4 extremities. There is mild edema in both lower extremiti es. NEUROLOGIC: Grossly intact. Cranial nerves II-XII are equal and symmetrical. He is alert and orien anthony x4. LABORATORY AND X-RAY FINDINGS: His white count is normal at 10.3, H&H is 9.0 and 26.6 respectively w ith 284,000 platelets, neutrophils at 85%, lymphocytes at 7.4%, no bands. Chemistries: Sodium as lo w as 125, potassium is 3.6, chloride 91, bicarbonate is 27, BUN is 21, creatinine is 1.09 with 141 on the glucose, calcium is normal at 8.3. Liver functions are within normal limits. CK is 77 and CK-M B is 1.2 and his troponin is slightly elevated at 0.044, all consistent with recent major heart bypas s surgery. His beta natriuretic peptide is 1018. ASSESSMENT AND PLAN: 1. Hypervolemia. 2. Hyponatremia. 3. Status post coronary artery bypass grafting x5, day #10. This could all be side effect of the amiodarone, could also just be an extension of his normal healin g process of his bypass at 82 years of age. He was still on his amiodarone due to an irritant like a trial fibrillation after the operation. He was sent home on 400 mg b.i.d. for a short period and to decrease. I am going to go ahead and decreasing him down to 200 mg b.i.d. I will continue his IV La six diuresis. Follow his sodium and his beta natriuretic peptides. I also get an echo and consult Noah Duarte, his lighting technician to see him in the morning.
[2017-10-03] MEDS: Furosemide 40 MG/4 ML VIAL SLOW IVP SCH ×2 (05:33→14:52)
[2017-10-03 05:55] LABS: Anion Gap 14 mmol/L (10-20); BUN (Urea Nitrogen) 18 mg/dL (8.4-25.7); Calc. Creatinine Clearance 71 mL/min (70-130); Calcium 8.8 mg/dL (7.8-10.44); Carbon Dioxide 27 mmol/L (23-31); Chloride 91 mmol/L (98-107); Estimated GFR-MDRD 71; Glucose 130 mg/dL (83-110); Potassium 3.6 mmol/L (3.5-5.1); Sodium 128 mmol/L (136-145)
[2017-10-03 08:46] VITALS: BMI 27.9
[2017-10-03] MEDS ORDERED: Metoprolol Tartrate 25 MG TAB PO SCH (09:00)
[2017-10-03] MEDS: Amiodarone 200 MG TAB PO SCH ×2 (09:09→20:29)
[2017-10-03] MEDS ORDERED: Losartan 25 MG TAB PO SCH (11:00)
[2017-10-03] MEDS: Metoprolol Tartrate 50 MG TAB PO SCH (20:29)
[2017-10-03] MEDS: Atorvastatin Calcium 40 MG TAB PO SCH (20:29)
--- NOTE | 2017-10-04 03:20 | CON ---
DATE OF CONSULTATION: 10/03/2017 HISTORY OF PRESENT ILLNESS: Ras Palacios is a pleasant 82-year-old white male that I initially evaluated on 09/22/2017. He had exertional chest tightness for 2 years and at times, he would also have left arm tingling. This usually will come on after walking approximately 800 feet. Also, at times when he would lie in bed, this would start. If he would drink some 7 Up and belch, it would be relieved in 5 minutes. He denied any shortness of breath, nausea, vomiting, or diaphoresis with the discomfort. He would have the discomfort on a daily basis depending up on his activity. At 2:00 a.m. on 09/22/2017, he got up to go to the bathroom and on his way back to bed, he started to have the same discomfort. He drank some 7 Up, this resolved in 5 minutes. It then started to come on again and again, resolved after 5 minutes. He then had another episode and after the third episode, he decided to come to the emergency room. On the way to the hospital, this again resolved. Initial EKG was unremarkable; however, subsequent EKG showed deeply inverted T waves in the anterior leads. Also, his troponin I was mildly elevated. He underwent cardiac catheterization which revealed total occlusion of the proximal LAD, total occlusion of the first diagonal, 70% proximal circumflex, 90% mid circumflex, 70% mid circumflex. Right coronary had a 90% stenosis, ramus had a 70% stenosis. He then underwent CABG x5 by Dr. Jose Pfeiffer with PAULA to the LAD, saphenous vein graft to the diagonal, saphenous vein graft to the obtuse marginal I and sequentially to obtuse marginal II, and saphenous vein graft to the right coronary artery. Postoperatively, he had several episodes of atrial fibrillation and was started on amiodarone and switched over to p.o. amiodarone. At the time of discharge, he was in sinus rhythm. He then came to the emergency room yesterday complaining of dyspnea on exertion for several days. He was found to have elevated BNP as well as hyponatremia and is admitted for further evaluation. He has been given some diuretics and neb treatments and his breathing has improved. PAST MEDICAL HISTORY: Hypertension, hypercholesterolemia, coronary artery disease. No history of diabetes. He did have significant thrombocytopenia in the past with platelet count of 19,000. In 06/2017, he was placed on high dose steroids. They were then gradually tapered. He stopped the steroids at the beginning of September. MEDICATIONS: At the time of discharge include: Amiodarone 400 mg b.i.d., aspirin 325 daily, atorvastatin 40 daily, hydrochlorothiazide 12.5 daily, metoprolol 25 b.i.d., MiraLax 17 grams daily. ALLERGIES: None. OPERATIONS: CABG and hemorrhoidectomy. SOCIAL HISTORY: He smoked 1-1/2 packs per day but stopped in 1990. He does not drink. 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 FAMILY HISTORY: Two brothers had CABG. REVIEW OF SYSTEMS: A 12-point review of systems is unremarkable. PHYSICAL EXAMINATION: VITAL SIGNS: 153/70, pulse of 70. HEENT: PERRL. NECK: Supple. LUNGS: Chest reveals expiratory wheezing bilaterally. CARDIAC: S1 and S2 are normal without any S3, S4, or murmurs. Carotid upstrokes are normal without bruits. ABDOMEN: Normal bowel sounds, without tenderness or organomegaly. EXTREMITIES: Revealed 1+ pretibial edema. NEUROLOGIC: Grossly intact. SKIN: Warm and dry. LABORATORY DATA: EKG revealed normal sinus rhythm with possible left atrial enlargement, anterior T-wave changes which are much less prominent than his preoperative EKG. Echocardiogram revealed ejection fraction of 60%-65% with mild left atrial enlargement, moderate mitral regurgitation, aortic valvular sclerosis, mild tricuspid regurgitation, and mild pulmonic regurgitation. Hemoglobin 9.0, hematocrit 26.6, white count 10,300, platelets 284,000. INR 1.1. PH 7.43, pCO2 of 34.9, pO2 of 100. Sodium 128, potassium 3.6, chloride 91 , carbon dioxide 18, creatinine 1.00. BNP 1018. Troponin I 0.044. IMPRESSION: 1. Probable diastolic heart failure with a normal systolic function on echo. Also, his blood pressure is not well controlled and he may have some component of chronic obstructive pulmonary disease exacerbation. 2. Status post coronary artery bypass graft x5 3. Status post non-ST myocardial infarction prior to coronary artery bypass graft. 4. Hypertension. 5. Hypercholesterolemia. 6. Former smoker. 7. Hyponatremia. PLAN: The patient will have his fluid restricted and will be diuresed. Metoprolol will be increased to 50 mg b.i.d. We will continue to follow the patient with you. MTDD
[2017-10-04] MEDS: Furosemide 40 MG/4 ML VIAL SLOW IVP SCH ×2 (05:51→14:38)
[2017-10-04 05:55] LABS: Anion Gap 12 mmol/L (10-20); BUN (Urea Nitrogen) 20 mg/dL (8.4-25.7); Calc. Creatinine Clearance 65 mL/min (70-130); Calcium 8.7 mg/dL (7.8-10.44); Carbon Dioxide 29 mmol/L (23-31); Chloride 93 mmol/L (98-107); Estimated GFR-MDRD 64; Glucose 101 mg/dL (83-110); Sodium 131 mmol/L (136-145)
[2017-10-04] MEDS: Polyethylene Glycol 3350 17 GM Packet PO SCH (08:14)
[2017-10-04] MEDS: Losartan 25 MG TAB PO SCH (08:14)
[2017-10-04] MEDS: Metoprolol Tartrate 50 MG TAB PO SCH ×2 (08:15→21:07)
[2017-10-04] MEDS: Amiodarone 200 MG TAB PO SCH ×2 (08:15→21:07)
[2017-10-04] MEDS: Atorvastatin Calcium 40 MG TAB PO SCH (21:07)
[2017-10-05 05:27] LABS: Anion Gap 13 mmol/L (10-20); BUN (Urea Nitrogen) 19 mg/dL (8.4-25.7); Calc. Creatinine Clearance 61 mL/min (70-130); Calcium 8.9 mg/dL (7.8-10.44); Carbon Dioxide 28 mmol/L (23-31); Chloride 95 mmol/L (98-107); Estimated GFR-MDRD 61; Glucose 94 mg/dL (83-110); Potassium 3.2 mmol/L (3.5-5.1); Sodium 133 mmol/L (136-145)
[2017-10-05] MEDS: Furosemide 40 MG/4 ML VIAL SLOW IVP SCH (05:38)
[2017-10-05] MEDS: Polyethylene Glycol 3350 17 GM Packet PO SCH (07:52)
[2017-10-05] MEDS: Amiodarone 200 MG TAB PO SCH (07:52)
[2017-10-05] MEDS: Metoprolol Tartrate 50 MG TAB PO SCH (07:52)
[2017-10-05] MEDS: Losartan 25 MG TAB PO SCH (07:52)
[2017-10-05] MEDS ORDERED: Potassium Chloride 20 MEQ TAB PO SCH ×2 (08:00→09:00)
--- NOTE | 2017-10-05 08:10 | PRG ---
DATE OF SERVICE: 10/05/2017 SUBJECTIVE: The patient is feeling much better this morning. He is able to ambulate longer distance s. No complaints of chest pain or shortness of breath. OBJECTIVE: VITAL SIGNS: Temperature 98.5, pulse 70, respirations 14, pulse ox 95, blood pressure 159/74. HEART: Regular rate and rhythm. LUNGS: Clear. ABDOMEN: Soft. EXTREMITIES: With no edema. LABORATORY DATA: I's and O's -920. Sodium 133, up from 131; potassium 3.2. BNP 903. ASSESSMENT: 1. Diastolic heart failure and improving. 2. Status post coronary artery bypass grafting x5. 3. Status post [id number] myocardial infarction prior to coronary artery bypass grafting. 4. Hypertension. 5. Hyperlipidemia. 6. Former smoker. 7. Hyponatremia/hypokalemia. 8. History of atrial fibrillation converted to sinus rhythm. 9. Chronic obstructive pulmonary disease. PLAN: 1. Continue amiodarone 200 b.i.d., Lasix 40 q.a.m., losartan 100 q.a.m., metoprolol 50 b.i.d. and PEPE l 20 daily. 2. Discharge per Dr. Duarte today or tomorrow. We will continue to follow.
[2017-10-05 12:21] VITALS: BP 120/55; TEMP 98.4
--- NOTE | 2017-10-05 17:21 | DIS ---
DATE OF ADMISSION: 10/02/2017 DATE OF DISCHARGE: 10/05/2017 ADMITTING DIAGNOSIS: Hypervolemia and hyponatremia with acute volume overload, status post 5-vessel coronary artery bypass graft. DISCHARGE DIAGNOSES: Acute diastolic heart failure with resulting hypervolemia and hyponatremia. CONSULTS: Dr. Duarte, Cardiology. HOSPITAL COURSE: The patient is an 82-year-old male patient of Dr. Juliocesar Zavala's, who was admitted on Jamul, in which he was 10 days' postoperative from a 5-vessel CABG. He had been dis charged to home on 09/28/2017. When he was having more difficulty with shortness of breath, came to the emergency room, was found to have a beta natriuretic peptide over 1000 and a sodium of 125. Hosp ital course essentially was to diurese him and correct his electrolytes. An echo showed his systolic ejection fraction at 60%, but he had diastolic failure. His rhythm had been normal sinus the whole time he was here. His amiodarone was decreased to 200 twice a day. He was on 400 twice a day at [facility], so at the day of discharge, his sodium has come up to 133. His potassium had dropped initially an d now is back up to 3.2 and his beta natriuretic peptide had dropped and has stabilized at 900. The plan is to discharge home on Lasix 40 mg twice a day and 20 mEq of potassium. He will resume his [place] 100 mg a day, his metoprolol 50 mg twice a day, his amiodarone 200 mg twice a day, and his Lipi tor 40 mg daily. He will also continue his Symbicort as he has had a mild amount of COPD exacerbatio n as well. He will follow up with Dr. Juliocesar Zavala next week. Appointment has already been set per his . He has an appointment with Dr. Jose Pfeiffer, the CV surgeon, on 10/16/2016 and he has an appointment with Dr. Tanner Duarte, Cardiology, on 11/10/2017.
--- NOTE | 2017-10-21 19:45 | EKG ---
Test Reason : SOB Blood Pressure : / mmHG Vent. Rate : 061 BPM Atrial Rate : 061 BPM P-R Int : 200 ms QRS Dur : 092 ms QT Int : 572 ms P-R-T Axes : 033 023 070 degrees QTc Int : 575 ms Normal sinus rhythm Possible Left atrial enlargement T wave abnormality, consider anterior ischemia Prolonged QT Abnormal ECG Confirmed by ARIELA MCDONALD, BENTLEY ([id number]), news videotape editor FARHAD LOPEZ ([id number]) on 10/21/2017 7:44:58 PM Referred By: Confirmed By:BENTLEY TITUS MD
== END 2017-10-05 12:42 | disposition home or self-care (01) | DRG 314 ==
LOC: ERS 13:44 → 2NO 15:35
PROVIDERS: ADMIT Family Medicine; ATTEND Family Medicine
DX: I97.130 Postprocedural heart failure following cardiac surgery (principal); I50.31 Acute diastolic (congestive) heart failure; I11.0 Hypertensive heart disease with heart failure; E87.1 Hypo-osmolality and hyponatremia; J44.1 Chronic obstructive pulmonary disease with (acute) exacerbation; Y83.2 Surgical operation with anastomosis, bypass or graft as the cause of abnormal reaction of the patient, or of later complication, without mention of misadventure at the time of the procedure; E87.6 Hypokalemia; Z87.891 Personal history of nicotine dependence; E78.00 Pure hypercholesterolemia, unspecified; I25.2 Old myocardial infarction
CPT/HCPCS: 36415; 71010; 80048; 80053; 82550; 82553; 82805; 83605; 83690; 83880; 84484; 85025; 85610; 85730; 87040; 87804; 93005; 93306; 94640; 96365; 96367; 96375; A4216; J1100; J1940; J1956; J3475; J7620

== ENCOUNTER 2017-10-25 14:04 | Emergency (ER) | payer MEDICARE, OTHER ==
[2017-10-25] MEDS ORDERED: Lidocaine 1% (PF) 30 ML VIAL ONE (14:26)
== END 2017-10-25 14:40 | disposition home or self-care (01) ==
LOC: ERS 14:04
DX: S01.111A Laceration without foreign body of right eyelid and periocular area, initial encounter (principal); I10 Essential (primary) hypertension; E78.5 Hyperlipidemia, unspecified; W01.198A Fall on same level from slipping, tripping and stumbling with subsequent striking against other object, initial encounter
CPT/HCPCS: 12011; 93005; J2001

== ENCOUNTER 2017-11-06 17:47 | Emergency (ER) | payer MEDICARE, OTHER ==
[2017-11-06 18:26] LABS: #Basophils 0.2 thou/uL (0.0-0.2); #Eosinphils 0.1 thou/uL (0.0-0.7); #Lymphocytes 1.4 thou/uL (1.20-3.40); %Basophils 1.7 % (0.0-1.0); %Monocytes 8.7 % (0.0-10.0); %Neutrophils 76.7 % (42.0-75.0); Hemoglobin 14.7 g/dL (14.0-18.0); Mean Corpuscular HGB CONC 33.6 g/dL (32.0-36.0); Mean Corpuscular Hemoglobin 29.8 pg (27.0-31.0); Mean Corpuscular Volume 88.9 fl (80.0-94.0); Mean Platelet Volume 8.2 fL (7.4-10.4); Platelet Count 151 thou/uL (130-400); RBC Distribution Width 13.3 % (11.5-14.5); Red Blood Cell (RBC) Count 4.94 mill/uL (4.70-6.10); White Blood Cell (WBC) Count 11.7 thou/uL (4.8-10.8)
[2017-11-06 18:50] LABS: ALT (SGPT) 18 U/L (8-55); AST (SGOT) 24 U/L (5-34); Albumin 4.2 g/dL (3.4-4.8); Alkaline Phosphatase 119 U/L (40-150); Anion Gap 14 mmol/L (10-20); BUN (Urea Nitrogen) 29 mg/dL (8.4-25.7); Bilirubin, Total 0.4 mg/dL (0.2-1.2); CK (CPK) 31 U/L (30-200); Calc. Creatinine Clearance 0 mL/min (70-130); Calcium 9.9 mg/dL (7.8-10.44); Carbon Dioxide 25 mmol/L (23-31); Chloride 101 mmol/L (98-107); Estimated GFR-MDRD 57; Globulin 3.4 g/dL (2.4-3.5); Glucose 99 mg/dL (83-110); Potassium 4.4 mmol/L (3.5-5.1); Protein, Total 7.6 g/dL (5.8-8.1); Sodium 136 mmol/L (136-145)
[2017-11-06 18:54] LABS: CKMB 1.1 ng/mL (0-6.6); Troponin I Less than 0.010 ng/mL (< 0.028)
[2017-11-06] MEDS ORDERED: hydrALAZINE 20 MG/ML VIAL ONE (19:34)
== END 2017-11-06 20:13 | disposition home or self-care (01) ==
LOC: ERS 17:47
DX: I10 Essential (primary) hypertension (principal); E78.5 Hyperlipidemia, unspecified; Z79.82 Long term (current) use of aspirin; Z79.899 Other long term (current) drug therapy
CPT/HCPCS: 80053; 82550; 82553; 83880; 84484; 85025; 93005; 96374; J0360

== ENCOUNTER 2017-11-16 08:12 | Outpatient (CLI) | payer MEDICARE, OTHER | END 2017-11-16 08:13 | disposition home or self-care (01) | LOC: BICRAD 08:12 | PROVIDERS: ATTEND Family Medicine | DX: E78.5 Hyperlipidemia, unspecified (principal) | CPT/HCPCS: 71046 ==

== ENCOUNTER 2017-11-22 17:32 | Emergency (ER) | payer MEDICARE, OTHER ==
[~2017-11-22 17:32] MED LIST: ISOVUE-370 76%-LOCM 1 ML ONE
[2017-11-22 17:59] LABS: #Lymphocytes 1.3 thou/uL (1.20-3.40); #Monocytes 0.7 thou/uL (0.11-0.59); #Neutrophils 5.8 thou/uL (1.40-6.50); %Basophils 0.4 % (0.0-1.0); %Eosinophils 0.5 % (0.0-10.0); %Monocytes 9.2 % (0.0-10.0); %Neutrophils 73.9 % (42.0-75.0); Hemoglobin 13.8 g/dL (14.0-18.0); Mean Corpuscular HGB CONC 32.2 g/dL (32.0-36.0); Mean Corpuscular Hemoglobin 27.9 pg (27.0-31.0); Mean Corpuscular Volume 86.5 fl (80.0-94.0); Mean Platelet Volume 8.7 fL (7.4-10.4); Platelet Count 79 thou/uL (130-400); RBC Distribution Width 12.9 % (11.5-14.5); Red Blood Cell (RBC) Count 4.94 mill/uL (4.70-6.10); White Blood Cell (WBC) Count 7.9 thou/uL (4.8-10.8)
[2017-11-22 18:20] LABS: ALT (SGPT) 14 U/L (8-55); AST (SGOT) 18 U/L (5-34); Albumin 3.8 g/dL (3.4-4.8); Alkaline Phosphatase 97 U/L (40-150); Anion Gap 13 mmol/L (10-20); BUN (Urea Nitrogen) 21 mg/dL (8.4-25.7); Bilirubin, Total 0.4 mg/dL (0.2-1.2); CK (CPK) 42 U/L (30-200); Calc. Creatinine Clearance 0 mL/min (70-130); Calcium 9.3 mg/dL (7.8-10.44); Carbon Dioxide 26 mmol/L (23-31); Chloride 99 mmol/L (98-107); Estimated GFR-MDRD 67; Globulin 2.8 g/dL (2.4-3.5); Glucose 122 mg/dL (83-110); Potassium 3.7 mmol/L (3.5-5.1); Protein, Total 6.6 g/dL (5.8-8.1); Sodium 134 mmol/L (136-145)
[2017-11-22 18:24] LABS: CKMB 1.3 ng/mL (0-6.6); Troponin I Less than 0.010 ng/mL (< 0.028)
--- NOTE | 2017-11-22 18:45 | RAD ---
PORTABLE AP CHEST X-RAY 11/22/17 HISTORY: Dyspnea. COMPARISON: 10/02/17. FINDINGS: Postsurgical changes related to CABG are again noted. The cardiac silhouette is magnified by projecti on. Pulmonary vasculature is within normal limits. The lungs are clear. There is gas density beneath each hemidiaphragm, most likely attributable to loops of small bowel. No other interval change. IMPRESSION: 1. No acute cardiopulmonary process. 2. Gas density beneath the hemidiaphragms most likely attributable to bowel gas. In addition aft er discussing findings with Dr. Velazquez the patient clinically does not have abdominal pain or tender ness. This also suggests that this likely represents bowel gas as opposed to free intraperitoneal gas . POS: [facility]
--- NOTE | 2017-11-22 20:31 | CT ---
CT ANGIOGRAM THORAX WITH IV CONTRAST 11/22/17 HISTORY: Dyspnea which is worse over the last week. History of atrial fibrillation and prior coronary artery b ypass. FINDINGS: there is streak artifact from dense contrast in the right subclavian vein and innominate vein which r esults in artifact to the level of the thyroid gland, but there is suggestion of a 3.2 cm hypodense n odule/mass in the right lobe of the thyroid gland. Postsurgical changes related to CABG are noted. Vascular calcifications are seen in the thoracic aorta and coronary arteries. Thoracic aorta is paz l in caliber without evidence of an aortic dissection. No filling defects are seen in the pulmonary a rteries to suggest a pulmonary embolus. There is no evidence of lymphadenopathy. There is biapical pleural and parenchymal scarring which is partially calcified in each lung apex. De pendent atelectasis is seen bilaterally. There is no evidence of a pulmonary nodule, mass or pleural effusion. Visualized upper abdomen has a normal CT appearance. Degenerative changes seen in the spine. IMPRESSION: 1. Nodule right lobe of the thyroid gland. This is difficult to adequately evaluate due to artif act through this region. Nonemergent thyroid ultrasound is recommended. 2. No CT evidence of a pulmonary embolus. 3. Atherosclerotic vascular calcifications in the thoracic aorta. POS: [facility]
== END 2017-11-22 20:40 | disposition home or self-care (01) ==
LOC: ERS 17:32
DX: R06.02 Shortness of breath (principal); E78.5 Hyperlipidemia, unspecified; I10 Essential (primary) hypertension
CPT/HCPCS: 36415; 71045; 71275; 80053; 82553; 84484; 85025; 93005; 94760

== ENCOUNTER 2017-12-22 14:32 | Emergency (ER) | payer MEDICARE, OTHER ==
--- NOTE | 2017-12-22 15:36 | CT ---
CT BRAIN: 12/22/17 HISTORY: Trauma. Noncontrast enhanced CT images of the brain is obtained. FINDINGS/IMPRESSION: Images demonstrate the brain to be unremarkable. No evidence of acute intracranial masses, hemorrhage s, strokes, or contusions seen. Ventricles are of normal size. No significant evidence of intracrania l pathology is noted. There does appear to be a small left parietal scalp area of extracranial hematoma. POS: [facility]
== END 2017-12-22 16:25 | disposition home or self-care (01) ==
LOC: ERS 14:32
DX: S51.011A Laceration without foreign body of right elbow, initial encounter (principal); S00.03XA Contusion of scalp, initial encounter; I10 Essential (primary) hypertension; E78.5 Hyperlipidemia, unspecified; Z87.891 Personal history of nicotine dependence; W19.XXXA Unspecified fall, initial encounter
CPT/HCPCS: 70450

== ENCOUNTER 2018-02-02 08:59 | Outpatient (CLI) | payer MEDICARE, OTHER | END 2018-02-02 09:00 | disposition home or self-care (01) | LOC: BICULT 08:59 | PROVIDERS: ATTEND Family Medicine | DX: I71.9 Aortic aneurysm of unspecified site, without rupture (principal); I71.4 Abdominal aortic aneurysm, without rupture | CPT/HCPCS: 76700 ==

== ENCOUNTER 2018-03-29 10:19 | Emergency (ER) | payer MEDICARE, OTHER ==
[2018-03-29 11:12] LABS: #Eosinphils 0.1 thou/uL (0.0-0.7); #Monocytes 0.5 thou/uL (0.11-0.59); #Neutrophils 4.8 thou/uL (1.40-6.50); %Basophils 0.5 % (0.0-1.0); %Eosinophils 1.5 % (0.0-10.0); %Lymphocytes 15.2 % (21.0-51.0); %Neutrophils 74.9 % (42.0-75.0); Hemoglobin 14.8 g/dL (14.0-18.0); Mean Corpuscular HGB CONC 34.6 g/dL (32.0-36.0); Mean Corpuscular Hemoglobin 30.1 pg (27.0-31.0); Mean Corpuscular Volume 87.1 fL (78.0-98.0); Mean Platelet Volume 7.6 fL (7.4-10.4); Platelet Count 116 thou/uL (130-400); RBC Distribution Width 13.6 % (11.5-14.5); Red Blood Cell (RBC) Count 4.91 mill/uL (4.70-6.10); White Blood Cell (WBC) Count 6.4 thou/uL (4.8-10.8)
--- NOTE | 2018-03-29 11:13 | RAD ---
CHEST 1 VIEW: Date: 03/29/18 HISTORY: Syncope. COMPARISON: 11/22/17. FINDINGS: Cardiac silhouette and pulmonary vasculature are unremarkable. Mediastinum is midline with postoperat ryan changes. Lungs are hyperinflated with flattening of each hemidiaphragm. No lobar consolidation or evidence of pneumothorax. IMPRESSION: COPD. Chronic-type findings are stable. POS: [facility]
[2018-03-29 11:25] LABS: INR-International Normal Ratio 1.2; Prothrombin Time 15.5 SEC (12.0-14.7)
[2018-03-29 11:30] LABS: ALT (SGPT) 14 U/L (8-55); AST (SGOT) 21 U/L (5-34); Albumin 4.3 g/dL (3.4-4.8); Alkaline Phosphatase 72 U/L (40-150); Anion Gap 11 mmol/L (10-20); BUN (Urea Nitrogen) 28 mg/dL (8.4-25.7); Bilirubin, Total 0.6 mg/dL (0.2-1.2); CK (CPK) 49 U/L (30-200); Calc. Creatinine Clearance 0 mL/min (70-130); Calcium 9.8 mg/dL (7.8-10.44); Carbon Dioxide 27 mmol/L (23-31); Chloride 103 mmol/L (98-107); Estimated GFR-MDRD 55; Globulin 2.6 g/dL (2.4-3.5); Glucose 93 mg/dL (83-110); Potassium 4.2 mmol/L (3.5-5.1); Protein, Total 6.9 g/dL (5.8-8.1); Sodium 137 mmol/L (136-145)
[2018-03-29 11:33] LABS: PLT Morphology Comment Appears Decreased; RBC Morphology Normal
[2018-03-29 11:35] LABS: CKMB 2.2 ng/mL (0-6.6); Troponin I Less than 0.010 ng/mL (< 0.028)
[2018-03-29 13:54] LABS: Troponin I Less than 0.010 ng/mL (< 0.028)
== END 2018-03-29 14:32 | disposition home or self-care (01) ==
LOC: ERS 10:19
DX: R55 Syncope and collapse (principal); I10 Essential (primary) hypertension; F41.9 Anxiety disorder, unspecified; I71.4 Abdominal aortic aneurysm, without rupture; E78.5 Hyperlipidemia, unspecified; Z79.899 Other long term (current) drug therapy; Z87.891 Personal history of nicotine dependence; Z79.82 Long term (current) use of aspirin
CPT/HCPCS: 71045; 80053; 82553; 84484; 85025; 85610; 85730; 93005

== ENCOUNTER 2018-04-26 08:39 | Outpatient (CLI) | payer MEDICARE, OTHER ==
--- NOTE | 2018-04-26 10:36 | ULT ---
ULTRASOUND RETROPERITONEUM LIMTED: (ABDOMINAL AORTA) DATE: 04/16/18. HISTORY: An 82-year-old male with known infrarenal abdominal aortic aneurysm. FINDINGS: There is a 4 x 4 cm distal infrarenal abdominal aortic aneurysm. This has grown from previous diamet er of approximately 3.5 x 3.5 cm on prior ultrasound of 01/30/17 from [facility]. IMPRESSION: Distal infrarenal abdominal aortic aneurysm has grown since the prior study, now 4 cm in diameter. GARRET Velazquez POS: [facility]
== END 2018-04-26 08:40 | disposition home or self-care (01) ==
LOC: ULT 08:39
PROVIDERS: ATTEND Family Medicine
DX: I71.4 Abdominal aortic aneurysm, without rupture (principal)
CPT/HCPCS: 76775

== ENCOUNTER 2019-04-30 07:50 | Outpatient (CLI) | payer MEDICARE, OTHER ==
--- NOTE | 2019-04-30 08:56 | ULT ---
ABDOMINAL AORTIC ULTRASOUND: 04/30/2019 HISTORY: Evaluate infrarenal abdominal aortic aneurysm. COMPARISON: 04/26/2018 TECHNIQUE: Multiplanar cardenas-scale sonographic imaging of the abdominal aorta is obtained. Images include color-f low and spectral analysis. FINDINGS: Proximally, the abdominal aorta measures up to 3.0 x 2.6 cm in transverse dimension. The mid abdomin al aorta measures up to approximately 3.3 x 2.9 cm in transverse dimension. The right common iliac a rtery measures 1.3 cm in AP dimension, and the left common iliac artery measures 1 cm in AP dimension . The provided imaging of the distal abdominal aorta demonstrates no evidence for aneurysm; however, th e prior study demonstrated an aneurysm of the infrarenal abdominal aorta, measuring at least 4 x 3.9 cm. Thus, the abdominal aorta is likely not optimally assessed secondary to obscuration from bowel g as. IMPRESSION: There are areas of aneurysmal dilatation, with the proximal abdominal aorta measuring up to 3 cm and the mid abdominal aorta measuring up to 3.3 cm. Prior examination demonstrated a 4 x 3.9 cm infraren al abdominal aortic aneurysm, which is not visualized on this examination and is likely secondary to obscuration. Thus, a CT examination of the abdomen and pelvis is advised for full assessment. CODE T POS: [facility]
== END 2019-04-30 07:51 | disposition home or self-care (01) ==
LOC: BICULT 07:50
PROVIDERS: ATTEND Family Medicine
DX: I71.4 Abdominal aortic aneurysm, without rupture (principal)
CPT/HCPCS: 76706

== ENCOUNTER 2019-05-14 12:15 | Outpatient (CLI) | payer MEDICARE, OTHER ==
--- NOTE | 2019-05-14 14:04 | CT ---
EXAM: CTA abdomen HISTORY: Abdominal aortic aneurysm COMPARISON: None TECHNIQUE: Multiple contiguous axial images were obtained a CTA of the abdomen with contrast. Sagitta l and coronal 3-D MIP reformats were performed. FINDINGS: LIVER: Unremarkable. GALLBLADDER: Unremarkable. KIDNEYS: Subcentimeter fat-containing lesion in the right kidney may represents a small angiomyolipo ma. A subcentimeter hyperdensity is seen in the upper pole the right kidney and is nonspecific. SPLEEN: Unremarkable. PANCREAS: Unremarkable. BOWEL: Unremarkable. Normal appendix. RETROPERITONEUM: No lymphadenopathy ABDOMINAL WALL SOFT TISSUES: Unremarkable BONES: Degenerative changes in the spine. ABDOMINAL AORTA: There is aneurysmal dilatation of the overlying aorta measuring 3.9 cm in maximum AP and 3.6 cm in maximum transverse dimensions. CELIAC TRUNK: Patent SMA: Patent ALEJANDRO: Difficult to definitely visualize RENAL ARTERIES: Right single renal artery and 2 left renal arteries without significant atherosclerot ic disease IMPRESSION: 1. Abdominal aortic aneurysm as above 2. 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
[2019-05-14] MEDS ORDERED: ISOVUE-370 76%-LOCM 1 ML ONE (14:48)
== END 2019-05-14 12:16 | disposition home or self-care (01) ==
LOC: BICCT 12:15
PROVIDERS: ATTEND Family Medicine
DX: I71.4 Abdominal aortic aneurysm, without rupture (principal)
CPT/HCPCS: 74174; 82565; Q9966

== ENCOUNTER 2020-02-04 15:38 | Observation (INO) | payer MEDICARE, OTHER ==
--- NOTE | 2020-02-04 16:05 | RAD ---
Exam: Chest one view HISTORY:Intermittent shortness of breath. Comparison: 03/29/2018 FINDINGS: Cardiac silhouette: Normal. Sternotomy wires are noted. Aorta: Atherosclerosis of the descending thoracic aorta Pulmonary vessels: Normal Costophrenic angles: Clear LUNGS: Hyperinflation. No masses or consolidation. Pneumothorax: None Osseous abnormalities: None IMPRESSION: Atherosclerosis. COPD. Hyperinflation. No acute cardiopulmonary process.
[2020-02-04 16:06] LABS: #Basophils 0.1 thou/uL (0.0-0.2); #Eosinphils 0.2 thou/uL (0.0-0.7); #Lymphocytes 2.1 thou/uL (1.20-3.40); #Monocytes 0.8 thou/uL (0.11-0.59); #Neutrophils 5.5 thou/uL (1.40-6.50); %Basophils 0.7 % (0.0-1.0); %Eosinophils 1.9 % (0.0-10.0); %Lymphocytes 24.7 % (21.0-51.0); %Monocytes 8.7 % (0.0-10.0); %Neutrophils 63.9 % (42.0-75.0); Hemoglobin 15.5 g/dL (14.0-18.0); Mean Corpuscular HGB CONC 33.5 g/dL (32.0-36.0); Mean Corpuscular Hemoglobin 29.4 pg (27.0-31.0); Mean Corpuscular Volume 87.7 fL (78.0-98.0); Mean Platelet Volume 7.5 fL (7.4-10.4); Platelet Count 178 thou/uL (130-400); RBC Distribution Width 13.2 % (11.5-14.5); Red Blood Cell (RBC) Count 5.27 mill/uL (4.70-6.10); White Blood Cell (WBC) Count 8.6 thou/uL (4.8-10.8)
[2020-02-04 16:29] LABS: ALT (SGPT) 12 U/L (8-55); AST (SGOT) 18 U/L (5-34); Albumin 4.4 g/dL (3.4-4.8); Alkaline Phosphatase 74 U/L (40-110); Anion Gap 15 mmol/L (10-20); BUN (Urea Nitrogen) 29 mg/dL (8.4-25.7); Bilirubin, Total 0.5 mg/dL (0.2-1.2); CK (CPK) 36 U/L (30-200); Calc. Creatinine Clearance 0 mL/min (70-130); Calcium 9.8 mg/dL (7.8-10.44); Carbon Dioxide 24 mmol/L (23-31); Chloride 101 mmol/L (98-107); Estimated GFR-MDRD 42; Globulin 2.7 g/dL (2.4-3.5); Glucose 107 mg/dL (83-110); Lipase 81 U/L (8-78); Protein, Total 7.1 g/dL (5.8-8.1); Sodium 136 mmol/L (136-145)
[2020-02-04] MEDS ORDERED: Aspirin Chewable 81 MG TAB ONE (17:53)
[2020-02-04] MEDS ORDERED: hydrALAZINE 25 MG TAB ONE (18:51)
[2020-02-04] MEDS ORDERED: Nitroglycerin 0.4 MG TAB (25 Tab Bottle) PO PRN (19:22)
[2020-02-04] MEDS ORDERED: Acetaminophen 325 MG TAB PO PRN (19:26)
[2020-02-04] MEDS ORDERED: hydrALAZINE 20 MG/ML VIAL SLOW IVP PRN (19:32)
[2020-02-04] MEDS ORDERED: cloNIDine 0.1 MG TAB PO PRN (19:32)
[2020-02-04 20:01] LABS: Troponin I 0.012 ng/mL (< 0.028)
--- NOTE | 2020-02-04 20:03 | PDOC.HHP ---
Hospitalist HPI - History of Present Illness SOB x 1 week History of Present Illness: PCP: Ebenezer Zavala Chief Operator Hydroformer: Dr. Duarte The patient is a 84/M with PMH significant for Atrial fibrillation on chronic anticoagulation (Eliquis), HTN, HLD, AAA (monitoring) and CABG x5 (2017) that presents for the above complaint. The patient reports feeling SOB for the past week. Reports intermittent, exacerbated with exertion "sometimes" and present at rest at times. Denies any chest pain, heart palpitations, or lower extremity swelling. Denies any recent cough or wheezing. Denies any recent travel, sick contacts, fever or chills. Reports sheltering at home since "this covid thing started". ED Course: VS 98.1F, 153/85, 60, 18, 98RA EKG afib rate controlled 60s, no ST elevations CXR no acute cardiopulmonary process trop negative BNP 114.6 BUN 29 Creat 1.56 WBC 8.6 Hgb 15.5 Hct 46.3 Plat 178 Given: ASA 324mg Allergies: NKDA Home Meds: 1. ASA 81mg po q day 2. Eliquis 5mg po BID 3. Metoprolol Succinate 25mg, take 1/2 tab po BID 4. Losartan 100mg po q day 5. Amlodipine 5mg po q day 6. Hydralazine 50mg po TID 7. Hydrochlorothiazide 12.5mg po q am 8. Zetia 10mg q day 9. Repatha 140 SC q 2weeks Hospitalist ROS - Review of Systems Constitutional: denies: fever, chills, sweats, weakness, malaise, other Eyes: denies: pain, vision change, conjunctivae inflammation, eyelid inflammation, redness, other ENT: denies: ear pain, ear discharge, nose pain, nose discharge, nose congestion , mouth pain, mouth swelling, throat pain, throat swelling, other Respiratory: reports: shortness of breath. denies: cough, dry, hemoptysis, SOB with excertion, pleuritic pain, sputum, wheezing Cardiovascular: denies: chest pain, palpitations, orthopnea, paroxysmal noc. dyspnea, edema, light headedness, other Gastrointestinal: denies: nausea, vomiting, abdominal pain, diarrhea, constipation, melena, hematochezia, other Genitourinary: denies: dysuria, frequency, incontinence, hematuria, retention, other Skin: denies: rash, lesions, sam, bruising, other Neurological: denies: weakness, numbness, incoordination, change in speech, confusion, seizures, other Hospitalist History - Past Medical History Source: patient Cardiac: reports: AFIB (chronic anticoagulation), CAD, HTN, Other (AAA ( monitoring)) Psych: reports: Anxiety - Past Surgical History Past Surgical History: reports: CABG (x5 (2017)), Cataract Removal, Other ( hemorrhoidectomy) - Family History Family History: reports: cardiac disorder, diabetes mellitus - Social History Smoking Status: Former smoker (quit > 25 years) Alcohol: reports: None Drugs: reports: none Living Situation: With Family Occupation: Lives with spouse in [place], retired Activity level: independent ambulation - Exam General Appearance: NAD, awake alert Eye: anicteric sclera ENT: normocephalic atraumatic Neck: supple, no JVD Heart: no murmur, no gallops, no rubs, normal peripheral pulses, irregular Respiratory: no wheezes, no rales, no ronchi, no tachypnea Respiratory - other findings: diminished BLL Gastrointestinal: soft, non-tender, normal bowel sounds, no guarding, no rigidity Extremities: no cyanosis Extremities - other findings: trace edema bilaterally Skin: no rashes Neurological: no focal deficits Psychiatric: normal affect, A&O x 3 Hospitalist Results - Labs Result Diagrams: 02/04/20 15:58 02/04/20 15:58 Lab results: WBC 8.6 thou/uL (4.8-10.8) 02/04/20 15:58 Hgb 15.5 g/dL (14.0-18.0) 02/04/20 15:58 Hct 46.3 % (42.0-52.0) 02/04/20 15:58 MCV 87.7 fL (78.0-98.0) 02/04/20 15:58 Plt Count 178 thou/uL (130-400) 02/04/20 15:58 Neutrophils % 63.9 % (42.0-75.0) 02/04/20 15:58 Sodium 136 mmol/L (136-145) 02/04/20 15:58 Potassium 4.0 mmol/L (3.5-5.1) 02/04/20 15:58 Chloride 101 mmol/L (98-107) 02/04/20 15:58 Carbon Dioxide 24 mmol/L (23-31) 02/04/20 15:58 BUN 29 mg/dL (8.4-25.7) H 02/04/20 15:58 Creatinine 1.56 mg/dL (0.7-1.3) H 02/04/20 15:58 Glucose 107 mg/dL (83-110) 02/04/20 15:58 Calcium 9.8 mg/dL (7.8-10.44) 02/04/20 15:58 Total Bilirubin 0.5 mg/dL (0.2-1.2) 02/04/20 15:58 AST 18 U/L (5-34) 02/04/20 15:58 ALT 12 U/L (8-55) 02/04/20 15:58 Alkaline Phosphatase 74 U/L (40-110) 02/04/20 15:58 Creatine Kinase 36 U/L (30-200) 02/04/20 15:58 Troponin I Less than 0.010 ng/mL (< 0.028) 02/04/20 15:58 B-Natriuretic Peptide 114.6 pg/mL (0-100) H 02/04/20 15:58 Serum Total Protein 7.1 g/dL (5.8-8.1) 02/04/20 15:58 Albumin 4.4 g/dL (3.4-4.8) 02/04/20 15:58 Lipase 81 U/L (8-78) H 02/04/20 15:58 - EKG Interpretation EKG: afib rate controlled 60bpm - Radiology Interpretation Chest x-ray Status: report reviewed by wa Hospitalist H&P A/P - Problem (1) Dyspnea Code(s): R06.00 - DYSPNEA, UNSPECIFIED Status: Acute Assessment and Plan: Admit to telemetry floor, observation status Expected stay less than 2 midnights No acute distress, RR even/unlabored on Room Air EKG atrial fib, rate controlled, trop negative BNP 114, was 230 in November CXR no acute process Will trend troponins Will order echocardiogram Consult cardiology Continue home Eliquis and ASA 81mg Will add dulera scheduled. Will get FLP, Mag, and TSH (2) MIGUEL A (acute kidney injury) Code(s): N17.9 - ACUTE KIDNEY FAILURE, UNSPECIFIED Status: Acute Assessment and Plan: Mild, slowly increasing over past year Will hold HCTZ for now Will recheck in am (3) Atrial fibrillation, chronic Code(s): I48.20 - CHRONIC ATRIAL FIBRILLATION, UNSPECIFIED Status: Chronic Assessment and Plan: Chronic, rate controlled Taking eliquis 5mg BID, will continue Will continue cardiac monitoring (4) HTN (hypertension) Code(s): I10 - ESSENTIAL (PRIMARY) HYPERTENSION Status: Chronic Assessment and Plan: Will restart home medications metoprolol, losartan, amlodipine, and hydralazine Will hold HCTZ for now (5) HLD (hyperlipidemia) Code(s): E78.5 - HYPERLIPIDEMIA, UNSPECIFIED Status: Chronic Assessment and Plan: Will restart zetia home med Will check FLP in am (6) History of abdominal aortic aneurysm (AAA) Code(s): Z86.79 - PERSONAL HISTORY OF OTHER DISEASES OF THE CIRCULATORY SYSTEM Status: Chronic - Plan Plan: Consult walking program NO GI or DVT prophylaxis Full Code OEWN Goldstein at [phone] Gentile
[2020-02-04 20:59] VITALS: BMI 24.1
[2020-02-04] MEDS ORDERED: Magnesium 2 GM/50 ML 2 GM in Premix Bag 1 BAG IVPB SCH (21:00)
[2020-02-04] MEDS: Metoprolol Tartrate 25 MG TAB PO SCH (21:44)
[2020-02-04] MEDS: Apixaban 5 MG TAB PO SCH (21:48)
[2020-02-04 22:53] LABS: Troponin I 0.018 ng/mL (< 0.028)
[2020-02-05 05:09] LABS: #Eosinphils 0.1 thou/uL (0.0-0.7); #Monocytes 0.6 thou/uL (0.11-0.59); %Basophils 0.6 % (0.0-1.0); %Eosinophils 1.8 % (0.0-10.0); %Lymphocytes 25.4 % (21.0-51.0); %Monocytes 8.1 % (0.0-10.0); Hemoglobin 15.6 g/dL (14.0-18.0); Mean Corpuscular HGB CONC 33.7 g/dL (32.0-36.0); Mean Corpuscular Hemoglobin 29.5 pg (27.0-31.0); Mean Corpuscular Volume 87.4 fL (78.0-98.0); Mean Platelet Volume 7.6 fL (7.4-10.4); Platelet Count 180 thou/uL (130-400); RBC Distribution Width 13.1 % (11.5-14.5); Red Blood Cell (RBC) Count 5.29 mill/uL (4.70-6.10); White Blood Cell (WBC) Count 7.8 thou/uL (4.8-10.8)
[2020-02-05 05:32] LABS: Anion Gap 14 mmol/L (10-20); BUN (Urea Nitrogen) 28 mg/dL (8.4-25.7); Calc. Creatinine Clearance 49 mL/min (70-130); Calcium 9.4 mg/dL (7.8-10.44); Carbon Dioxide 22 mmol/L (23-31); Cardiac Risk 2.3 (Less than 4.5); Chloride 104 mmol/L (98-107); Cholesterol 107 mg/dl (< 200 Desired); Estimated GFR-MDRD 57; Glucose 93 mg/dL (83-110); HDL Cholesterol 46 mg/dL (>60 Neg Risk); LDL Cholesterol, Calculated 48 mg/dL; Lipase 62 U/L (8-78); Magnesium 2.3 mg/dL (1.6-2.6); Potassium 3.7 mmol/L (3.5-5.1); Sodium 136 mmol/L (136-145); Triglycerides 63 mg/dL (Less than 150)
[2020-02-05] MEDS ORDERED: Mometasone 200 MCG/Formoterol 5 MCG 120 PUFF INHALER INH SCH (06:30)
[2020-02-05] MEDS: Apixaban 5 MG TAB PO SCH (08:37)
[2020-02-05] MEDS: Metoprolol Tartrate 25 MG TAB PO SCH (08:44)
[2020-02-05] MEDS ORDERED: Ezetimibe 10 MG TAB PO SCH (09:00)
[2020-02-05] MEDS ORDERED: hydrALAZINE 25 MG TAB PO SCH (09:00)
[2020-02-05] MEDS ORDERED: Losartan 25 MG TAB PO SCH (09:00)
[2020-02-05] MEDS ORDERED: Aspirin 81 mg Enteric Coated Tablet PO SCH ×2 (09:00→21:00)
[2020-02-05] MEDS ORDERED: Amlodipine 5 MG TAB PO SCH ×2 (09:00→21:00)
[2020-02-05 11:52] VITALS: BP 90/60; TEMP 97.3
--- NOTE | 2020-02-05 14:27 | PDOC.HOSPP ---
- Subjective Encounter Date: 02/05/20 Encounter Time: 14:25 Subjective: Mr. Palacios was seen today in follow-up of shortness of breath. He feels fine now. He says he only get short of breath when he is up moving around. He denies any fever or cough. He says with the " virus going around, it scared him a little". - Objective Vital Signs & Weight: Vital Signs (12 hours) Temp Pulse Resp BP BP Pulse Ox 02/05/20 11:52 97.3 F L 62 18 90/60 94 L 02/05/20 10:16 60 165/90 H 02/05/20 08:39 60 165/90 H 02/05/20 07:42 97.7 F 60 18 165/90 H 99 02/05/20 04:21 97.6 F 52 L 18 148/75 H 97 02/05/20 03:00 63 142/78 H Weight Admit Weight 173 lb Weight 173 lb 1.6 oz I&O: 02/04/20 02/05/20 02/06/20 06:59 06:59 06:59 Intake Total 290 Output Total 50 Balance 240 Result Diagrams: 02/05/20 04:39 02/05/20 04:39 Hospitalist ROS - Medication Medications: Active Medications Generic Name Dose Route Start Last Admin Trade Name Freq PRN Reason Stop Dose Admin Apixaban 5 mg 02/04/20 21:00 02/05/20 08:37 Eliquis PO 5 mg BID DESIRAE Administration Ezetimibe 10 mg 02/05/20 09:00 02/05/20 08:38 Zetia PO 10 mg DAILY DESIRAE Administration Hydralazine HCl 50 mg 02/05/20 09:00 02/05/20 08:39 Apresoline PO 50 mg TID DESIRAE Administration Hydralazine HCl 10 mg 02/04/20 19:32 02/05/20 02:15 Apresoline SLOW IVP 10 mg Q4H PRN Administration SBP > 180 or DBP > 105 Losartan Potassium 100 mg 02/05/20 09:00 02/05/20 08:38 Cozaar PO 100 mg DAILY DESIRAE Administration Metoprolol Tartrate 12.5 mg 02/04/20 21:00 02/05/20 08:44 Lopressor PO 12.5 mg BID DESIRAE Administration Mometasone Furoate/Formoterol Fumar 2 puff 02/05/20 06:30 02/05/20 07:30 Dulera 200 Mcg/5 Mcg Inhaler INH 2 puff BID-RT DESIRAE Administration - Exam Eye: PERRL, anicteric sclera Heart: RRR, no murmur, no gallops, no rubs, normal peripheral pulses Respiratory: CTAB, no wheezes, no rales, no ronchi, normal chest expansion, no tachypnea, normal percussion Gastrointestinal: soft, non-tender, non-distended, normal bowel sounds, no palpable masses, no hepatomegaly Extremities: no cyanosis, no edema Hosp A/P (1) Atrial fibrillation, chronic Code(s): I48.20 - CHRONIC ATRIAL FIBRILLATION, UNSPECIFIED Status: Chronic (2) HLD (hyperlipidemia) Code(s): E78.5 - HYPERLIPIDEMIA, UNSPECIFIED Status: Chronic (3) HTN (hypertension) Code(s): I10 - ESSENTIAL (PRIMARY) HYPERTENSION Status: Chronic - Plan * Shortness of breath- likely due to COPD or early emphysema. He tells me a simialr episode happened before. He was evaluated in the hospital, and " they couldn't find anything. He was told it was possibly due to Emphysema, He was prescribed an inhaler. He says this time his symptoms are much milder. * Echo results were noted * I believe he can have the Cardiology evaluation as an Outpatient * Will discharge home on Symbicort
--- NOTE | 2020-02-05 15:02 | EKG ---
Test Reason : Blood Pressure : / mmHG Vent. Rate : 060 BPM Atrial Rate : 060 BPM P-R Int : 306 ms QRS Dur : 084 ms QT Int : 434 ms P-R-T Axes : 062 051 080 degrees QTc Int : 434 ms Sinus rhythm with 1st degree A-V block Abnormal ECG Confirmed by LEIDA SARGENT DO ([id number]), news video editor FARHAD LOPEZ ([id number]) on 02/05/2020 3:02:31 PM Referred By: Confirmed By:LEIDA SARGENT DO
--- NOTE | 2020-02-05 15:10 | DIS ---
DATE OF ADMISSION: 02/04/2020 DATE OF DISCHARGE: 02/05/2020 PRIMARY CARE PHYSICIAN: Juliocesar Zavala MD DISCHARGE DISPOSITION: Home. DISCHARGE DIAGNOSES: 1. Shortness of breath on exertion. 2. Probable chronic obstructive pulmonary disease. 3. History of atrial fibrillation, on chronic anticoagulation. 4. Hypertension. 5. Dyslipidemia. 6. History of coronary artery disease. DISCHARGE MEDICATIONS: 1. Dulera 200/5 mcg 2 puffs twice a day was added to his regimen. 2. Continue losartan 100 mg daily. 3. Aspirin 81 mg daily. 4. CoQ10 of 200 mg daily. 5. MiraLAX 17 g daily. 6. Lopressor 12.5 mg twice a day. 7. Hydrochlorothiazide 12.5 mg daily. 8. Hydralazine 50 mg t.i.d. 9. Repatha every 2 weeks. 10. Eliquis 5 mg daily. 11. Norvasc 5 mg p.o. daily. IMAGING DONE DURING HOSPITAL STAY: The patient had an echocardiogram in which the ejection fraction was estimated at 50% to 55%. There was some E/A flow reversal noted suggestive of diastolic dysfunction. The left atrium was mildly enlarged. CODE STATUS: Full code. ALLERGIES: NO KNOWN DRUG ALLERGIES. HOSPITAL COURSE: Mr. Palacios is a pleasant 84-year-old gentleman, who was admitted to the hospital, complaining of dyspnea on exertion. He says it happened a couple of days prior to admission. When I saw on the following day after admission, he was actually feeling much better. When I asked him a little bit more detail about the shortness of breath, this has actually been going on, off and on for some time. He says that the "virus going around, he was a bit scared." He tells me that he had an episode like this similar a few years back where he was evaluated in the hospital. They ran lots of chest. He says they "could not find anything" and felt that it was likely related to COPD. He was given an inhaler, took it for some time and then stopped. He does have a history of 30-pack years of smoking. He admits that this episode is a lot milder than what he had back then. He had an echocardiogram, which was essentially unremarkable. He is already on a blood thinner, therefore pulmonary embolism is unlikely. He had 3 sets of troponins that were negative. At this point, I think it is safe for the patient to be discharged home. We will place him on an empiric long-acting beta-agonist/steroid combination with either Symbicort or Dulera. He was instructed that he should have an outpatient pulmonary function tests done and to follow up with his primary care physician soon. He did quit smoking back in the , so there is no ongoing tobacco use. Job ID: [id number]
== END 2020-02-05 15:23 | disposition home or self-care (01) ==
LOC: ERS 15:38 → 2SE 18:23
PROVIDERS: ADMIT Internal Medicine Cardiovascular Disease; ATTEND Internal Medicine
DX: R06.02 Shortness of breath (principal); I48.20 Chronic atrial fibrillation, unspecified; N17.9 Acute kidney failure, unspecified; I10 Essential (primary) hypertension; E78.5 Hyperlipidemia, unspecified; F41.9 Anxiety disorder, unspecified; I25.10 Atherosclerotic heart disease of native coronary artery without angina pectoris; Z79.01 Long term (current) use of anticoagulants; Z79.899 Other long term (current) drug therapy; Z87.891 Personal history of nicotine dependence; Z86.79 Personal history of other diseases of the circulatory system; Z95.1 Presence of aortocoronary bypass graft
CPT/HCPCS: 36415; 71045; 80048; 80053; 80061; 82550; 83690; 83735; 83880; 84443; 84484; 85025; 93005; 93306; 94760; 96365; 96366; 96375; G0378; J0360; J3475

== ENCOUNTER 2020-05-04 07:56 | Outpatient (CLI) | payer MEDICARE, OTHER ==
--- NOTE | 2020-05-04 08:26 | ULT ---
EXAM: US Abdominal Aorta Aneurysm PROVIDED CLINICAL HISTORY: Abdominal aortic aneurysm. COMPARISON: CTA abdomen on 05/14/2019 and ultrasound of the abdominal aorta on 04/30/2019 FINDINGS: The proximal abdominal aorta measures 3 cm x 3 cm, mid abdominal aorta measures 3.8 cm x 2.9 cm, and distal abdominal aorta measures 2.3 cm x 1.8 cm. The common iliac arteries are normal in caliber. IMPRESSION: 1. Abdominal aortic aneurysm with the mid abdominal aorta measuring 3.8 cm in maximal dimensions. The abdominal aorta on a prior CTA of the abdomen measured 4 cm in maximal dimension.
== END 2020-05-04 07:57 | disposition home or self-care (01) ==
LOC: BICULT 07:56
PROVIDERS: ATTEND Family Medicine
DX: I71.4 Abdominal aortic aneurysm, without rupture (principal)
CPT/HCPCS: 76706

== ENCOUNTER 2020-09-11 14:56 | Inpatient (IN) | payer MEDICARE, OTHER ==
[2020-09-11 16:13] LABS: #Eosinphils 0.1 thou/uL (0.0-0.7); #Lymphocytes 1.3 thou/uL (1.20-3.40); #Monocytes 0.7 thou/uL (0.11-0.59); %Eosinophils 1.6 % (0.0-10.0); %Monocytes 8.1 % (0.0-10.0); %Neutrophils 74.3 % (42.0-75.0); Mean Corpuscular HGB CONC 34.4 g/dL (32.0-36.0); Mean Corpuscular Hemoglobin 30.5 pg (27.0-31.0); Mean Corpuscular Volume 88.6 fL (78.0-98.0); Mean Platelet Volume 6.9 fL (7.4-10.4); Platelet Count 173 thou/uL (130-400); RBC Distribution Width 12.3 % (11.5-14.5); Red Blood Cell (RBC) Count 5.24 mill/uL (4.70-6.10)
--- NOTE | 2020-09-11 16:21 | CT ---
CT BRAIN WITHOUT CONTRAST: 09/11/20 HISTORY: Altered mental status, sudden onset dizziness. COMPARISON: 12/22/17. FINDINGS: No evidence of acute infarct, hemorrhage, midline shift or abnormal extra-axial fluid collections are seen. The ventricular size is stable and the basilar cisterns patent. The bony calvarium is intact. The visualized paranasal sinuses and mastoid air cells are well aerated. IMPRESSION: No CT evidence of acute intracranial process. POS: AH
[2020-09-11 16:35] LABS: ALT (SGPT) 11 U/L (8-55); AST (SGOT) 18 U/L (5-34); Albumin 4.1 g/dL (3.4-4.8); Alkaline Phosphatase 75 U/L (40-110); Anion Gap 12 mmol/L (10-20); BUN (Urea Nitrogen) 29 mg/dL (8.4-25.7); Bilirubin, Total 0.5 mg/dL (0.2-1.2); Calc. Creatinine Clearance 0 mL/min (70-130); Calcium 9.3 mg/dL (7.8-10.44); Carbon Dioxide 29 mmol/L (23-31); Chloride 102 mmol/L (98-107); Globulin 2.9 g/dL (2.4-3.5); Glucose 110 mg/dL (83-110); Potassium 3.9 mmol/L (3.5-5.1); Sodium 139 mmol/L (136-145)
--- NOTE | 2020-09-11 16:39 | RAD ---
EXAM: Chest one view: HISTORY: Dyspnea COMPARISON: 02/04/2020 FINDINGS: Stable postop midline sternotomy. Old granulomatous disease. Heart size: Within normal limits. Lungs: Clear of acute process. No evidence for confluent lobar pneumonia, significant pleural effusion, acute edema, or pneumothorax , or other significant acute process. IMPRESSION: No significant acute intrathoracic disease. Stable from prior study.
[2020-09-11] MEDS ORDERED: Acetaminophen 325 MG TAB PO PRN (18:04)
[2020-09-11] MEDS ORDERED: Acetaminophen 650 MG Suppository PR PRN (18:04)
--- NOTE | 2020-09-11 19:18 | PDOC.HHP ---
Hospitalist HPI - History of Present Illness History of Present Illness: ADMISSION DATE: 09/11/2020 TIME OF ASSESSMENT: 1700 PRIMARY CARE PHYSICIAN: Dr. Gillian Zavlaa CHIEF COMPLAINT: Weakness and gait disturbance HPI: Patient presents complaining of difficulty walking and lower extremity weakness. States he felt well when he first woke up this morning and walked to the kitchen to make himself breakfast. Denies any lightheadedness or dizziness. Later in the morning he noticed leg weakness and unsteadiness. He sat down as he was afraid of falling given the level of unsteadiness he suddenly had. Denies any n/v. He denies having any chest pain and does report shortness of breath that has been chronic and gradually progressing over the last few years since his heart surgery. No upper extremity numbness or weakness. No speech changes or facial weakness. No urinary symptoms. Denies any recent fever, chil ls or sweats. All other review of systems are negative. Patient states he follows regularly with his professor of archaeology Dr. Duarte. Last Echo done 02/05/2020 showed an EF of 50 to 55% changes suggestive of diastolic dysfunction. Left atrium mildly dilated. Mild MR and mild TR present. Aortic valve sclerotic. ED COURSE: He had an EKG done showing a first degree AV block with PACs and TWI in V3-V5. Initial Trop I negative. BUN 29, Creat 1.46, GFR 46. LFTs normal. WCC 8, Hgb 16, Platelets 163. CXR negative. CT head negative. At present he feels well and is without any complaints. PAST MEDICAL HISTORY: 1. Hypertension. 2. CAD. 3. Hyperlipidemia 4. Abdominal aortic aneurysm 5. Anxiety 6. Depression 7. A fib. PAST SURGICAL HISTORY: 1. CABG x 5 in 2017 2. Cataract surgery 3. Hemorrhoidectomy SOCIAL HISTORY: Previous smoker, quit >10 years ago. Edith alcohol use or drug use. Fully independent at home. He walks with the help of a cane. Currently he limits his activity to his home due to the temp dropping. A week ago he was taking 15 minute walks outside. FAMILY HISTORY: Noncontributory. ALLERGIES: No known drug allergies CURRENT MEDICATIONS: 1. Eliquis 2.5 mg p.o. twice daily 2. Aspirin 81 mg p.o. daily 3. Losartan 100 mg p.o. daily 4. Amlodipine 5 mg p.o. daily 5. Ezetimibe 10 mg p.o. daily 6. HCTZ 12.5 mg p.o. daily 7. Dulcolax 5 mg p.o. daily 8. MiraLAX 17 g p.o. daily 9. Amiodarone 200 mg p.o. daily Hospitalist History - Past Medical History Psych: reports: Anxiety - Past Surgical History Past Surgical History: reports: CABG (x5 (2017)), Cataract Removal, Other (hemorrhoidectomy) - Social History Alcohol: reports: None Drugs: reports: none Occupation: Lives with spouse in [place], retired - Exam General Appearance: NAD, awake alert General - other findings: VS: BP 136/76, HR 61, RR 18, O2 sat 97% on room air, temp 97.6 Eye: PERRL, anicteric sclera Eye - other findings: EOM intact ENT: normocephalic atraumatic, no oropharyngeal lesions Neck: supple, symmetric, no thyromegaly Heart: RRR, no murmur, no rubs, normal peripheral pulses Respiratory: CTAB, no wheezes, no rales, no ronchi, normal chest expansion Gastrointestinal: soft, non-tender, non-distended, normal bowel sounds Extremities: no cyanosis, no clubbing, no edema Skin: no lesions, no rashes, tenting Neurological: cranial nerve grossly intact, normal sensation to touch Musculoskeletal: normal tone, normal strength, no muscle wasting Musculoskeletal - other findings: Strength 5/5 in all limbs Psychiatric: normal affect, normal behavior, A&O x 3 Hospitalist Results - Labs Result Diagrams: 09/11/20 16:02 09/11/20 16:02 Lab results: WBC 8.0 thou/uL (4.8-10.8) 09/11/20 16:02 Hgb 16.0 g/dL (14.0-18.0) 09/11/20 16:02 Hct 46.4 % (42.0-52.0) 09/11/20 16:02 MCV 88.6 fL (78.0-98.0) 09/11/20 16:02 Plt Count 173 thou/uL (130-400) 09/11/20 16:02 Neutrophils % 74.3 % (42.0-75.0) 09/11/20 16:02 Sodium 139 mmol/L (136-145) 09/11/20 16:02 Potassium 3.9 mmol/L (3.5-5.1) 09/11/20 16:02 Chloride 102 mmol/L (98-107) 09/11/20 16:02 Carbon Dioxide 29 mmol/L (23-31) 09/11/20 16:02 BUN 29 mg/dL (8.4-25.7) H 09/11/20 16:02 Creatinine 1.46 mg/dL (0.7-1.3) H 09/11/20 16:02 Glucose 110 mg/dL (83-110) 09/11/20 16:02 Calcium 9.3 mg/dL (7.8-10.44) 09/11/20 16:02 Total Bilirubin 0.5 mg/dL (0.2-1.2) 09/11/20 16:02 AST 18 U/L (5-34) 09/11/20 16:02 ALT 11 U/L (8-55) 09/11/20 16:02 Alkaline Phosphatase 75 U/L (40-110) 09/11/20 16:02 Troponin I 0.020 ng/mL (< 0.028) 09/11/20 16:02 Serum Total Protein 7.0 g/dL (5.8-8.1) 09/11/20 16:02 Albumin 4.1 g/dL (3.4-4.8) 09/11/20 16:02 - Radiology Interpretation CT scan - head Status: report reviewed by mo Hospitalist H&P A/P - Problem (1) Leg weakness, bilateral Code(s): R29.898 - [facility] SYMPTOMS AND SIGNS INVOLVING THE MUSCULOSKELETAL SYSTEM Status: Acute (2) Unsteady gait Code(s): R26.81 - UNSTEADINESS ON FEET Status: Acute (3) Atrial fibrillation, chronic Code(s): I48.20 - CHRONIC ATRIAL FIBRILLATION, UNSPECIFIED Status: Chronic (4) CKD (chronic kidney disease) Code(s): N18.9 - CHRONIC KIDNEY DISEASE, UNSPECIFIED Status: Chronic (5) HTN (hypertension) Code(s): I10 - ESSENTIAL (PRIMARY) HYPERTENSION Status: Chronic (6) HLD (hyperlipidemia) Code(s): E78.5 - HYPERLIPIDEMIA, UNSPECIFIED Status: Chronic (7) History of abdominal aortic aneurysm (AAA) Code(s): Z86.79 - PERSONAL HISTORY OF OTHER DISEASES OF THE CIRCULATORY SYSTEM Status: Chronic - Plan Plan: Patient admitted for CVA rule out after he developed lower extremity weakness and unsteady gait. At present he feels well and his symptoms resolved. No dizziness, upper extremity weakness/numbness or speech disturbances. Unsteady gait secondary to leg weakness. CT head ordered in ED and negative. Will complete CVA rule out work-up. MRI brain in the AM. Carotid US Neuro consulted Continue ASA and start statin. Cardiac monitoring. PT/OT consulted Hypertension. Monitor BP. Resume home meds as appropriate once verified. SOB, chronic. States progressively worse since then. Last echo in 01/2020. Repeat Echo ordered. Monitor O2 sats. Chronic CHF Check BNP Echo. CKD Monitor renal function. Hyperlipidemia. Lipid panel with AM labs. Statin. Chronic afib. Cardiac monitoring. Continue eliquis. Resume other home meds once verified. Abdominal aortic aneurysm. Stable. Anxiety/Depression. Resume home meds once verified. DVT Prophylaxis: Mechanical SCDs. Already on anticoagulation. CODE STATUS: FULL Code.
[2020-09-11 19:46] LABS: Troponin I 0.015 ng/mL (< 0.028)
[2020-09-11 20:41] VITALS: BMI 24.3
--- NOTE | 2020-09-11 22:44 | ULT ---
BILATERAL CAROTID DUPLEX ULTRASOUND: HISTORY: Dizziness. Evaluate for CVA. TECHNIQUE: Grayscale, color-flow and spectral Doppler ultrasound imaging of the extracranial carotid artery syst ems and vertebral arteries was performed bilaterally. FINDINGS: Right carotid: Calcified plaque in the right carotid bifurcation and proximal internal carotid artery . Left carotid: Calcified plaque in the left carotid bifurcation The peak systolic velocity in the right ICA measures 76.5 cm/s. The peak systolic velocity in the ri ght CCA measures 63.7 cm/s. The peak systolic velocity in the left ICA measures 148.1 cm/s. The peak systolic velocity in the left CCA measures 69.5 cm/s. The right IC/CC ration is1.2. The left IC/CC ratio is 2.1. Vertebral flow: Right vertebral artery is not seen. Antegrade flow in the left vertebral artery . IMPRESSION: 1. 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 Further evaluation with CT angiogram of the head and neck is recommended.
[2020-09-11 22:48] LABS: Troponin I 0.014 ng/mL (< 0.028)
[2020-09-11] MEDS: Rosuvastatin 20 MG TAB PO SCH (23:08)
[2020-09-12 05:00] LABS: #Eosinphils 0.1 thou/uL (0.0-0.7); #Lymphocytes 1.1 thou/uL (1.20-3.40); #Monocytes 0.5 thou/uL (0.11-0.59); %Basophils 0.4 % (0.0-1.0); %Lymphocytes 19.6 % (21.0-51.0); Hemoglobin 14.4 g/dL (14.0-18.0); Mean Corpuscular Hemoglobin 29.5 pg (27.0-31.0); Mean Corpuscular Volume 86.8 fL (78.0-98.0); Mean Platelet Volume 7.2 fL (7.4-10.4); Platelet Count 156 thou/uL (130-400); RBC Distribution Width 12.2 % (11.5-14.5); White Blood Cell (WBC) Count 5.8 thou/uL (4.8-10.8)
[2020-09-12 05:21] LABS: Anion Gap 14 mmol/L (10-20); BUN (Urea Nitrogen) 30 mg/dL (8.4-25.7); Calc. Creatinine Clearance 45 mL/min (70-130); Calcium 8.8 mg/dL (7.8-10.44); Carbon Dioxide 24 mmol/L (23-31); Cardiac Risk 2.2 (Less than 4.5); Chloride 106 mmol/L (98-107); Cholesterol 102 mg/dl (< 200 Desired); Glucose 97 mg/dL (83-110); HDL Cholesterol 46 mg/dL (>60 Neg Risk); LDL Cholesterol, Calculated 43 mg/dL; Potassium 3.7 mmol/L (3.5-5.1); Sodium 140 mmol/L (136-145); Triglycerides 65 mg/dL (Less than 150)
[2020-09-12 06:41] LABS: SARS-CoV-2 MS2 Positive; SARS-CoV-2 N Gene Negative; SARS-CoV-2 S Gene Negative; SARS-CoV-2 by NAA Not Detected (NotDetected); SARS-CoV-2 orf1ab Negative
--- NOTE | 2020-09-12 08:21 | PDOC.HOSPP ---
- Subjective Encounter Date: 09/12/20 Encounter Time: 08:21 Subjective: Patient was seen and examined in bed He said he feels generally better with less dizziness He denies any chest pain or shortness of breath awaiting PT and neurology evaluation - Objective Vital Signs & Weight: Vital Signs (12 hours) Temp Pulse Resp BP Pulse Ox 09/12/20 07:57 97.5 F L 67 16 160/80 H 98 09/12/20 03:00 98.0 F 57 L 14 165/83 H 98 09/11/20 23:35 98.0 F 68 14 150/78 H 97 09/11/20 23:23 97.8 F 68 15 150/78 H 97 Weight Weight 174 lb 9.6 oz I&O: 09/11/20 09/12/20 09/13/20 06:59 06:59 06:59 Intake Total 240 Balance 240 Result Diagrams: 09/12/20 04:24 09/12/20 04:24 Hospitalist ROS - Medication Medications: Active Medications Generic Name Dose Route Start Last Admin Trade Name Freq PRN Reason Stop Dose Admin Rosuvastatin Calcium 20 mg 09/11/20 21:00 09/11/20 23:08 Rosuvastatin 20 Mg Tab PO 20 mg HS DESIRAE Administration - Exam General Appearance: awake alert Heart: RRR, no murmur, no gallops, no rubs Respiratory: CTAB, no wheezes, no rales, no ronchi Gastrointestinal: soft, non-tender, non-distended, normal bowel sounds Extremities: no cyanosis, no clubbing, no edema Neurological: cranial nerve grossly intact, no focal deficits Psychiatric: normal affect, normal behavior, A&O x 3 Hosp A/P - Plan This is an 85-year-old male patient with a history of hypertension, coronary disease, hyperlipidemia admitted a day ago on account of dizziness of unclear etiology. Dizziness On evaluation this afternoon it was noted that he was significantly orthostatic. He was started on IV normal saline bolus with repeat orthostatics being positive. We will continue IV fluid rehydration and monitoring until his orthostatics are negative. We will hold HCTZ this p.m. Evaluation for stroke/TIA negativeechocardiogramEF 50-65. Carotid USG shows moderate stenosis. MRI shows no MANAGER CONTRACT lesions Neurology evaluated We will discharge in a.m. with if stable Atrial fibrillation This is chronic Continue apixaban No RVR no A. fib on telemetry Continue monitoring. CKD Renal function stable Hypertension BP slightly elevated supine however orthostatic. Rehydrating continue monitoring. Abdominal aortic aneurysm Stable Anxiety/depression Resume home meds VT prophylaxisSCD Dispositionfor possible discharge tomorrow.
[2020-09-12] MEDS: Aspirin Chewable 81 MG TAB PO SCH (09:59)
[2020-09-12] MEDS: Polyethylene Glycol 3350 17 GM Packet PO SCH (09:59)
[2020-09-12] MEDS: Ubidecarenone 50 MG CAP PO SCH (09:59)
[2020-09-12] MEDS: Docusate 100 MG CAP PO SCH (10:00)
[2020-09-12] MEDS: Apixaban 2.5 MG TAB PO SCH ×2 (10:00→20:35)
[2020-09-12] MEDS: Losartan 25 MG TAB PO SCH (10:01)
[2020-09-12] MEDS ORDERED: Non-Formulary Item 1 EACH (Amiodarone Hcl [Amiodarone Hcl] 100 MG Tablet) PO SCH (10:27)
[2020-09-12] MEDS ORDERED: Amiodarone 200 MG TAB PO SCH (10:45)
--- NOTE | 2020-09-12 11:24 | MRI ---
EXAM: Brain MRI Without contrast: HISTORY: Dizziness, TIA versus stroke COMPARISON: Brain CT, 09/11/2020 FINDINGS: Multiplanar multisequence MRI examination of the brain is performed. The ventricles are within normal limits of size shape and position. No mass or midline shift. No evidence for intra or extra-axial hemorrhage. No evidence for abnormal restricted diffusion. No evidence for acute infarct. Minimal scattered chronic white matter ischemic change. Moderate motion artifact limits sensitivity of this study. Normal-appearing flow voids are noted. The extracranial soft tissues and calvarial marrow signal appear within normal limits. Mild sinus mucosal disease. IMPRESSION: No significant acute intracranial process. No mass or bleed. No acute infarct. Mild chronic white matter ischemic change.
[2020-09-12] MEDS ORDERED: Sodium Chloride 0.9% 500 ML IV SCH (11:45)
--- NOTE | 2020-09-12 15:52 | CON ---
DATE OF CONSULTATION: 09/12/2020 CONSULTING PHYSICIAN: Hospitalist Services. IMPRESSION: Probable benign positional vertigo. PLAN: Outpatient evaluation at the [facility]. HISTORY OF PRESENT ILLNESS: Mr. Palacios is an 85-year-old gentleman with a past history of hypertension, coronary artery disease, hyperlipidemia, aortic aneurysm, atrial fibrillation, who presented with complaints of drunken feeling in his head. It would wax and wane in severity depending on the position he was in. When he was lying still, he feels reasonably good. When he would get up to move around, it would bring on the sensation. He had the sensation of oscillopsia as well. It is not associated with nausea or vomiting. It started yesterday and is still continuing today. His orthostatic vital signs did not show any hypotension. He has never had anything like this before. His workup has included an echocardiogram which shows normal ejection fraction 55%. His MRI of the brain showed some chronic white matter changes but was otherwise unremarkable. His CT of the brain was negative as well. His carotid ultrasound shows some moderate stenosis of the left carotid. He is followed by Dr. Duarte. PAST MEDICAL HISTORY: As listed above. ALLERGIES: NONE REPORTED. MEDICATIONS: Include, 1. Eliquis. 2. Aspirin. 3. Statin. SOCIAL HISTORY: No tobacco or alcohol use. FAMILY HISTORY: Noncontributory. REVIEW OF SYSTEMS: Ten-system review of systems is otherwise negative. PHYSICAL EXAMINATION: VITAL SIGNS: Have been stable without orthostatic changes. HEENT: Pupils equal and reactive. Conjunctivae clear. Oropharynx clear. NECK: Supple. ABDOMEN: Soft and nontender. SKIN: Clear. EXTREMITIES: No cyanosis or edema. NEUROLOGIC: He is alert and appropriate. His speech is fluent and clear. He has no focal deficits. He has no abnormal movements either. He can walk with some standby assistance. SUMMARY: Elderly gentleman with new onset of low-grade vertigo without nausea or vomiting. It seems to be positional, which would imply his probably benign positional vertigo. There is no central neurologic issue identified. I would be happy to refer him on to the [facility] and would be available for outpatient followup. Job ID: [id number]
[2020-09-12] MEDS: Sodium Chloride 0.9% 1,000 ML IV SCH (18:32)
[2020-09-12] MEDS: Rosuvastatin 20 MG TAB PO SCH (20:35)
[2020-09-12] MEDS ORDERED: Amlodipine 5 MG TAB PO SCH (21:00)
[2020-09-13] MEDS: Sodium Chloride 0.9% 1,000 ML IV SCH (06:00)
[2020-09-13 06:24] LABS: #Eosinphils 0.1 thou/uL (0.0-0.7); #Lymphocytes 1.3 thou/uL (1.20-3.40); #Monocytes 0.5 thou/uL (0.11-0.59); #Neutrophils 4.2 thou/uL (1.40-6.50); %Basophils 0.3 % (0.0-1.0); %Eosinophils 1.9 % (0.0-10.0); %Lymphocytes 20.6 % (21.0-51.0); %Neutrophils 69.2 % (42.0-75.0); Hemoglobin 14.1 g/dL (14.0-18.0); Mean Corpuscular HGB CONC 34.8 g/dL (32.0-36.0); Mean Corpuscular Hemoglobin 30.6 pg (27.0-31.0); Mean Corpuscular Volume 87.8 fL (78.0-98.0); Mean Platelet Volume 7.7 fL (7.4-10.4); Platelet Count 143 thou/uL (130-400); RBC Distribution Width 12.2 % (11.5-14.5); Red Blood Cell (RBC) Count 4.62 mill/uL (4.70-6.10); White Blood Cell (WBC) Count 6.1 thou/uL (4.8-10.8)
[2020-09-13 06:45] LABS: Anion Gap 13 mmol/L (10-20); BUN (Urea Nitrogen) 24 mg/dL (8.4-25.7); Calc. Creatinine Clearance 49 mL/min (70-130); Calcium 8.4 mg/dL (7.8-10.44); Carbon Dioxide 20 mmol/L (23-31); Chloride 111 mmol/L (98-107); Glucose 85 mg/dL (83-110); Potassium 3.8 mmol/L (3.5-5.1); Sodium 140 mmol/L (136-145)
[2020-09-13 07:55] VITALS: TEMP 97.5
[2020-09-13] MEDS ORDERED: Amiodarone 200 MG TAB PO SCH (09:00)
[2020-09-13] MEDS: Docusate 100 MG CAP PO SCH (09:31)
[2020-09-13] MEDS: Apixaban 2.5 MG TAB PO SCH (09:31)
[2020-09-13] MEDS: Ubidecarenone 50 MG CAP PO SCH (09:31)
[2020-09-13] MEDS: Losartan 25 MG TAB PO SCH (09:31)
[2020-09-13] MEDS: Polyethylene Glycol 3350 17 GM Packet PO SCH (09:31)
[2020-09-13] MEDS: Aspirin Chewable 81 MG TAB PO SCH (09:32)
[2020-09-13 12:33] VITALS: BP 149/76
--- NOTE | 2020-09-13 17:26 | PDOC.DS.DS ---
Provider - Provider Date of Admission: 09/13/20 11:21 Date of Discharge: 09/13/20 Admitting Provider: Berlin Estrada MD Primary Care Physician: Gillina Zavala MD Course - Hospital Course Hospital Course: This is a 85-year-old male patient with a history of coronary artery disease, hypertension was admitted on account of syncope. He was monitored on telemetry however no concerning rhythm was noted. Initial head CT and echocardiogram were within normal range with no indication of a cause of his syncope. Orthostatic vital signs were checked which were positive. He received bolus IV fluid hydration and continuous hydration. After overnight IV fluid hydration his orthostatics were negative. He was discharged home and encouraged to keep himself hydrated, get up slowly from sitting positions and also get compression stockings. Neurology was in consultshe will follow up. Resuscitation Status: 09/11/20 18:04 Resuscitation Status Routine Co-Sign Provider: Resuscitation Status: FULL: Full Resuscitation - Labs Lab Results: 09/13/20 06:07 09/13/20 06:07 Abnormal Lab Results - Last 48 hrs 09/12/20 04:24: BUN 30 H 09/12/20 04:24: MPV 7.2 L, Lymphocytes % 19.6 L, Lymphocytes # 1.1 L 09/13/20 06:07: Chloride 111 H, Carbon Dioxide 20 L 09/13/20 06:07: RBC 4.62 L, Hct 40.6 L, Lymphocytes % 20.6 L - Physical Exam Vitals: Vital Signs (12 hours) Temp Pulse Resp BP BP BP BP 09/13/20 12:00 149/76 H 09/13/20 11:06 164/87 H 09/13/20 10:05 166/77 H 09/13/20 10:00 180/96 H 09/13/20 09:55 180/88 H 09/13/20 07:22 97.5 F L 66 16 174/79 H Pulse Ox 09/13/20 12:00 09/13/20 11:06 09/13/20 10:05 09/13/20 10:00 09/13/20 09:55 09/13/20 07:22 97 Weight Weight 174 lb 9.6 oz Physical Exam: The patient was seen and examined on the day of discharge. General: In bed, no acute distress. CVS: S1-S2 present and normal. No murmurs gallops or rubs. Respiratory; entry adequate bilaterally. Abdomen: Benign Extremities: No edema. Problem - Discharge Plan Assessment: Syncope Likely orthostatic hypotension Patient related" to keep hydrated He will use compression stockings and adequate hydration to reduce chances of recurrence. He will follow-up with his box nailer and PCP and urology. Hypertension We will continue his blood pressure medications while adequately hydrating. To adjust dose if blood pressure becomes low He will follow up with his box nailer for further adjustments Plan - Discharge Medications Home Medications: Medication Instructions Recorded Confirmed Type Hydrochlorothiazide 12.5 mg PO HS 09/22/17 09/11/20 History Docusate Sodium [Dulcolax Stool 100 mg PO DAILY 10/02/17 09/11/20 History Softener] Polyethylene Glycol 3350 [Miralax] 17 gm PO DAILY 10/02/17 09/11/20 History Aspirin Chewable [Aspirin Chewable 81 mg PO DAILY tab 10/05/17 09/11/20 Rx Tablet] Losartan [Cozaar] 100 mg PO DAILY #30 tab 10/05/17 09/11/20 Rx Amlodipine [Norvasc] 5 mg PO HS 02/04/20 09/11/20 History Apixaban [Eliquis] 5 mg PO DAILY 02/04/20 09/11/20 History Ubidecarenone [Coenzyme Q-10] 200 mg PO DAILY 02/04/20 09/11/20 History Ezetimibe [Zetia] 10 mg PO HS 09/11/20 09/11/20 History Amiodarone HCl 100 mg PO DAILY 09/12/20 09/12/20 History Allergies: No Known Allergies Allergy (Verified 09/11/20 22:07) - Discharge Instructions Discharge Instructions:: Keep yourself hydrated. Get compression stockings to improve circulation when you get up from a sitting position. Get up slowly when you stand up Follow up with your PCP. Activity:: Activity as Tolerated Therapies:: Physical Therapy - Follow up Plan Referrals: Gillian Zavala MD [Primary Care Provider] - 7 Days Beny Pavon MD [Active] - 14 Days Tanner Duarte MD [Active] - Disposition: HOME Quality - Care Measures CORE MEASURES:: N/A
== END 2020-09-13 13:20 | disposition home or self-care (01) | DRG 312 ==
LOC: ERS 14:56 → 2SE 17:59 → OBSVTOIN 09-13 11:21
PROVIDERS: ADMIT Internal Medicine; ATTEND Internal Medicine
DX: I95.1 Orthostatic hypotension (principal); I48.20 Chronic atrial fibrillation, unspecified; I13.0 Hypertensive heart and chronic kidney disease with heart failure and stage 1 through stage 4 chronic kidney disease, or unspecified chronic kidney disease; Z20.828 Contact with and (suspected) exposure to other viral communicable diseases; I25.10 Atherosclerotic heart disease of native coronary artery without angina pectoris; E78.5 Hyperlipidemia, unspecified; F41.9 Anxiety disorder, unspecified; R29.898 Other symptoms and signs involving the musculoskeletal system; R26.81 Unsteadiness on feet; N18.9 Chronic kidney disease, unspecified; I50.9 Heart failure, unspecified; I71.4 Abdominal aortic aneurysm, without rupture; F32.9 Major depressive disorder, single episode, unspecified; Z79.01 Long term (current) use of anticoagulants; Z79.82 Long term (current) use of aspirin; Z79.899 Other long term (current) drug therapy; Z87.891 Personal history of nicotine dependence; Z95.1 Presence of aortocoronary bypass graft
CPT/HCPCS: 36415; 70450; 70551; 71045; 80048; 80053; 80061; 82607; 83735; 83880; 84484; 85025; 87635; 93005; 93306; 93880; 94760; U0003

== ENCOUNTER 2021-04-27 18:08 | Emergency (ER) | payer MEDICARE, OTHER ==
[2021-04-27 18:50] LABS: #Eosinphils 0.2 thou/uL (0.0-0.7); #Lymphocytes 1.4 thou/uL (1.20-3.40); #Monocytes 0.7 thou/uL (0.11-0.59); #Neutrophils 6.3 thou/uL (1.40-6.50); %Basophils 0.2 % (0.0-1.0); %Eosinophils 2.8 % (0.0-10.0); %Lymphocytes 15.7 % (21.0-51.0); %Monocytes 8.1 % (0.0-10.0); %Neutrophils 73.2 % (42.0-75.0); Hemoglobin 13.5 g/dL (14.0-18.0); Mean Corpuscular HGB CONC 33.7 g/dL (32.0-36.0); Mean Corpuscular Hemoglobin 30.1 pg (27.0-31.0); Mean Corpuscular Volume 89.2 fL (78.0-98.0); Mean Platelet Volume 7.3 fL (7.4-10.4); Platelet Count 209 thou/uL (130-400); RBC Distribution Width 12.9 % (11.5-14.5); Red Blood Cell (RBC) Count 4.48 mill/uL (4.70-6.10); White Blood Cell (WBC) Count 8.6 thou/uL (4.8-10.8)
[2021-04-27 18:57] LABS: PTT 30.3 sec (22.9-36.1); Prothrombin Time 13.1 sec (12.0-14.7)
[2021-04-27 19:10] LABS: ALT (SGPT) 13 U/L (8-55); AST (SGOT) 20 U/L (5-34); Albumin 3.8 g/dL (3.4-4.8); Alkaline Phosphatase 72 U/L (40-110); Anion Gap 11 mmol/L (10-20); BUN (Urea Nitrogen) 21 mg/dL (8.4-25.7); Bilirubin, Total 0.3 mg/dL (0.2-1.2); Calc. Creatinine Clearance 0 mL/min (70-130); Carbon Dioxide 26 mmol/L (23-31); Chloride 105 mmol/L (98-107); Globulin 2.6 g/dL (2.4-3.5); Glucose 110 mg/dL (83-110); Potassium 4.4 mmol/L (3.5-5.1); Protein, Total 6.4 g/dL (5.8-8.1); Sodium 138 mmol/L (136-145)
== END 2021-04-27 21:32 | disposition home or self-care (01) ==
LOC: ERS 18:08
DX: S51.002A Unspecified open wound of left elbow, initial encounter (principal); I10 Essential (primary) hypertension; I71.4 Abdominal aortic aneurysm, without rupture; E78.5 Hyperlipidemia, unspecified; Z87.891 Personal history of nicotine dependence; Z79.01 Long term (current) use of anticoagulants; Z79.899 Other long term (current) drug therapy; Z79.82 Long term (current) use of aspirin; W18.09XA Striking against other object with subsequent fall, initial encounter
CPT/HCPCS: 36415; 70450; 80053; 85025; 85610; 85730

== ENCOUNTER 2021-05-07 18:31 | Inpatient (IN) | payer MEDICARE, OTHER ==
[2021-05-07 21:17] LABS: #Eosinphils 0.1 thou/uL (0.0-0.7); #Lymphocytes 1.1 thou/uL (1.20-3.40); #Monocytes 0.8 thou/uL (0.11-0.59); #Neutrophils 6.7 thou/uL (1.40-6.50); %Basophils 0.2 % (0.0-1.0); %Eosinophils 0.9 % (0.0-10.0); %Lymphocytes 12.7 % (21.0-51.0); %Neutrophils 77.2 % (42.0-75.0); Hemoglobin 13.3 g/dL (14.0-18.0); Mean Corpuscular HGB CONC 33.3 g/dL (32.0-36.0); Mean Corpuscular Hemoglobin 29.5 pg (27.0-31.0); Mean Corpuscular Volume 88.6 fL (78.0-98.0); Mean Platelet Volume 6.9 fL (7.4-10.4); Platelet Count 233 thou/uL (130-400); RBC Distribution Width 12.7 % (11.5-14.5); Red Blood Cell (RBC) Count 4.51 mill/uL (4.70-6.10); White Blood Cell (WBC) Count 8.7 thou/uL (4.8-10.8)
[2021-05-07] MEDS ORDERED: HYDROcodone/Acetaminophen 10/325 mg Tablet ONE (21:17)
[2021-05-07] MEDS ORDERED: Fentanyl 100 MCG/2 ML VIAL ONE (21:17)
[2021-05-07 21:42] LABS: ALT (SGPT) 12 U/L (8-55); AST (SGOT) 17 U/L (5-34); Albumin 3.7 g/dL (3.4-4.8); Alkaline Phosphatase 74 U/L (40-110); Anion Gap 13 mmol/L (10-20); BUN (Urea Nitrogen) 22 mg/dL (8.4-25.7); Bilirubin, Total 0.5 mg/dL (0.2-1.2); Calc. Creatinine Clearance 0 mL/min (70-130); Carbon Dioxide 24 mmol/L (23-31); Chloride 104 mmol/L (98-107); Globulin 2.5 g/dL (2.4-3.5); Glucose 95 mg/dL (83-110); Potassium 3.7 mmol/L (3.5-5.1); Protein, Total 6.2 g/dL (5.8-8.1); Sodium 137 mmol/L (136-145)
[2021-05-07 21:48] LABS: Bacteria/HPF None Seen HPF (None Seen); Bilirubin Negative (Negative); Blood, Urine Negative (Negative); Clarity Clear (Clear); Glucose, Urine (Dipstick) Normal (Negative); Ketone, Urine Negative (Negative); Leukocyte Negative Leu/uL (Negative); Nitrite Negative (Negative); Protein, Urine (Dipstick) 70 mg/dL (Neg-Trace); RBC/HPF 0-3 HPF (0-3); Squamous Epithelial 0-3 HPF (0-3); Urobilinogen Normal mg/dL (Less than 2); WBC/HPF 0-3 HPF (0-3); pH, Urine 5.5 (5.0-9.0)
[2021-05-07] MEDS ORDERED: hydrALAZINE 20 MG/ML VIAL ONE (23:35)
[2021-05-08 01:34] VITALS: BMI 24.1
[2021-05-08] MEDS: Acetaminophen 325 MG TAB PO PRN (01:50)
[2021-05-08 02:13] LABS: Troponin I 0.015 ng/mL (< 0.028)
[2021-05-08 05:24] LABS: Troponin I 0.021 ng/mL (< 0.028)
[2021-05-08] MEDS: hydrALAZINE 20 MG/ML VIAL SLOW IVP PRN ×2 (07:30→15:18)
[2021-05-08] MEDS ORDERED: HYDROcodone/Acetaminophen 5/325 mg Tablet PO PRN (12:01)
[2021-05-08] MEDS ORDERED: Calcium Carbonate 500 MG ChewTAB PO PRN (12:01)
[2021-05-08] MEDS ORDERED: Senokot S 8.6-50 MG TAB PO PRN (12:01)
[2021-05-08] MEDS: Dronedarone HCl 400 MG TAB PO SCH (16:16)
[2021-05-08 16:43] LABS: SARS-CoV-2 PCR by NAA Not Detected (NotDetected)
[2021-05-08] MEDS: Apixaban 2.5 MG TAB PO SCH (20:29)
[2021-05-08] MEDS: hydrALAZINE 25 MG TAB PO SCH (20:30)
[2021-05-08] MEDS: Amlodipine 5 MG TAB PO SCH (20:30)
[2021-05-08] MEDS ORDERED: Amlodipine 5 MG TAB PO SCH (21:00)
[2021-05-09] MEDS: hydrALAZINE 20 MG/ML VIAL SLOW IVP PRN (00:47)
[2021-05-09 04:26] LABS: #Eosinphils 0.1 thou/uL (0.0-0.7); #Lymphocytes 1.1 thou/uL (1.20-3.40); #Monocytes 0.8 thou/uL (0.11-0.59); %Eosinophils 1.2 % (0.0-10.0); %Lymphocytes 13.3 % (21.0-51.0); %Monocytes 9.9 % (0.0-10.0); %Neutrophils 75.6 % (42.0-75.0); Hemoglobin 12.3 g/dL (14.0-18.0); Mean Corpuscular HGB CONC 34.9 g/dL (32.0-36.0); Mean Corpuscular Hemoglobin 31.1 pg (27.0-31.0); Mean Corpuscular Volume 89.1 fL (78.0-98.0); Platelet Count 226 thou/uL (130-400); RBC Distribution Width 12.8 % (11.5-14.5); Red Blood Cell (RBC) Count 3.97 mill/uL (4.70-6.10)
[2021-05-09 04:42] LABS: Anion Gap 10 mmol/L (10-20); BUN (Urea Nitrogen) 19 mg/dL (8.4-25.7); Calc. Creatinine Clearance 59 mL/min (70-130); Calcium 8.6 mg/dL (7.8-10.44); Carbon Dioxide 24 mmol/L (23-31); Chloride 106 mmol/L (98-107); Glucose 92 mg/dL (83-110); Potassium 3.3 mmol/L (3.5-5.1); Sodium 137 mmol/L (136-145)
[2021-05-09] MEDS ORDERED: Potassium Chloride 20 MEQ TAB PO SCH (07:30)
[2021-05-09] MEDS: Polyethylene Glycol 3350 17 GM Packet PO SCH (08:44)
[2021-05-09] MEDS: Aspirin Chewable 81 MG TAB PO SCH (08:44)
[2021-05-09] MEDS: Dronedarone HCl 400 MG TAB PO SCH ×2 (08:45→17:30)
[2021-05-09] MEDS: Docusate 100 MG CAP PO SCH (08:46)
[2021-05-09] MEDS: Losartan 25 MG TAB PO SCH (08:46)
[2021-05-09] MEDS: hydrALAZINE 25 MG TAB PO SCH ×3 (08:46→20:23)
[2021-05-09] MEDS: Apixaban 2.5 MG TAB PO SCH ×2 (08:46→20:23)
[2021-05-09] MEDS ORDERED: Carvedilol 6.25 MG TAB PO SCH ×2 (09:15→17:00)
[2021-05-09] MEDS: Lidocaine 5% Patch TD SCH (13:00)
[2021-05-09] MEDS: Carvedilol 6.25 MG TAB PO SCH (17:29)
[2021-05-09] MEDS: Ezetimibe 10 MG TAB PO SCH (20:23)
[2021-05-09] MEDS: Amlodipine 5 MG TAB PO SCH (20:30)
[2021-05-10] MEDS: Transdermal Patch Removal TOP SCH ×2 (00:09→23:20)
[2021-05-10] MEDS: Acetaminophen 325 MG TAB PO PRN (00:14)
[2021-05-10] MEDS: Carvedilol 6.25 MG TAB PO SCH ×2 (07:43→17:16)
[2021-05-10] MEDS: Dronedarone HCl 400 MG TAB PO SCH ×2 (07:43→17:16)
[2021-05-10] MEDS: hydrALAZINE 25 MG TAB PO SCH ×4 (07:44→20:25)
[2021-05-10] MEDS: Docusate 100 MG CAP PO SCH (09:28)
[2021-05-10] MEDS: Losartan 25 MG TAB PO SCH (09:28)
[2021-05-10] MEDS: Aspirin Chewable 81 MG TAB PO SCH (09:28)
[2021-05-10] MEDS: Apixaban 2.5 MG TAB PO SCH ×2 (09:29→20:25)
[2021-05-10] MEDS: Polyethylene Glycol 3350 17 GM Packet PO SCH (09:30)
[2021-05-10 13:24] LABS: Magnesium 1.9 mg/dL (1.6-2.6)
[2021-05-10] MEDS: Lidocaine 5% Patch TD SCH (16:17)
[2021-05-10] MEDS: Ezetimibe 10 MG TAB PO SCH (20:25)
[2021-05-10] MEDS: Amlodipine 5 MG TAB PO SCH (20:25)
[2021-05-11 05:34] LABS: Anion Gap 10 mmol/L (10-20); BUN (Urea Nitrogen) 20 mg/dL (8.4-25.7); Calc. Creatinine Clearance 54 mL/min (70-130); Calcium 8.6 mg/dL (7.8-10.44); Carbon Dioxide 24 mmol/L (23-31); Chloride 106 mmol/L (98-107); Glucose 85 mg/dL (83-110); Potassium 3.6 mmol/L (3.5-5.1); Sodium 136 mmol/L (136-145)
[2021-05-11] MEDS: Dronedarone HCl 400 MG TAB PO SCH (08:18)
[2021-05-11] MEDS: Docusate 100 MG CAP PO SCH (08:18)
[2021-05-11] MEDS: Aspirin Chewable 81 MG TAB PO SCH (08:18)
[2021-05-11] MEDS: Losartan 25 MG TAB PO SCH (08:18)
[2021-05-11] MEDS: hydrALAZINE 25 MG TAB PO SCH ×2 (08:19→14:12)
[2021-05-11] MEDS: Carvedilol 6.25 MG TAB PO SCH (08:19)
[2021-05-11] MEDS: Polyethylene Glycol 3350 17 GM Packet PO SCH (08:20)
[2021-05-11] MEDS: Apixaban 2.5 MG TAB PO SCH (08:20)
[2021-05-11] MEDS: Lidocaine 5% Patch TD SCH (15:07)
[2021-05-11 15:30] VITALS: BP 127/62; TEMP 97.6
== END 2021-05-11 15:15 | DRG 304 ==
LOC: ERS 18:31 → 2NO 23:34
PROVIDERS: ADMIT Internal Medicine; ATTEND Family Medicine
DX: I16.0 Hypertensive urgency (principal); G95.19 Other vascular myelopathies; Z20.822 Contact with and (suspected) exposure to COVID-19; I48.91 Unspecified atrial fibrillation; I25.10 Atherosclerotic heart disease of native coronary artery without angina pectoris; I10 Essential (primary) hypertension; E78.5 Hyperlipidemia, unspecified; I71.4 Abdominal aortic aneurysm, without rupture; F41.9 Anxiety disorder, unspecified; F32.9 Major depressive disorder, single episode, unspecified; Z79.01 Long term (current) use of anticoagulants; Z79.82 Long term (current) use of aspirin; Z79.899 Other long term (current) drug therapy; Z95.1 Presence of aortocoronary bypass graft; Z91.81 History of falling; Z87.891 Personal history of nicotine dependence
CPT/HCPCS: 36415; 70450; 71045; 72131; 72148; 76706; 80048; 80053; 81003; 81015; 82533; 82550; 83735; 84443; 84484; 85025; 93005; 96372; 96374; J0360; J3010; U0003; U0005

== ENCOUNTER 2021-05-18 12:02 | Inpatient (IN) | payer MEDICARE, OTHER ==
[2021-05-18 12:49] LABS: #Eosinphils 0.1 thou/uL (0.0-0.7); #Lymphocytes 1.1 thou/uL (1.20-3.40); #Monocytes 0.9 thou/uL (0.11-0.59); #Neutrophils 8.2 thou/uL (1.40-6.50); %Basophils 0.3 % (0.0-1.0); %Eosinophils 1.3 % (0.0-10.0); %Lymphocytes 10.3 % (21.0-51.0); Hemoglobin 12.6 g/dL (14.0-18.0); Mean Corpuscular HGB CONC 34.5 g/dL (32.0-36.0); Mean Corpuscular Hemoglobin 30.3 pg (27.0-31.0); Mean Corpuscular Volume 87.7 fL (78.0-98.0); Mean Platelet Volume 7.2 fL (7.4-10.4); Platelet Count 235 thou/uL (130-400); RBC Distribution Width 12.7 % (11.5-14.5); Red Blood Cell (RBC) Count 4.16 mill/uL (4.70-6.10); White Blood Cell (WBC) Count 10.4 thou/uL (4.8-10.8)
[2021-05-18 13:08] LABS: ALT (SGPT) 19 U/L (8-55); AST (SGOT) 33 U/L (5-34); Albumin 3.8 g/dL (3.4-4.8); Alkaline Phosphatase 116 U/L (40-110); Anion Gap 13 mmol/L (10-20); BUN (Urea Nitrogen) 18 mg/dL (8.4-25.7); Bilirubin, Total 0.6 mg/dL (0.2-1.2); Calc. Creatinine Clearance 0 mL/min (70-130); Calcium 8.7 mg/dL (7.8-10.44); Carbon Dioxide 21 mmol/L (23-31); Chloride 98 mmol/L (98-107); Globulin 2.4 g/dL (2.4-3.5); Glucose 93 mg/dL (83-110); Potassium 4.1 mmol/L (3.5-5.1); Protein, Total 6.2 g/dL (5.8-8.1); Sodium 128 mmol/L (136-145)
[2021-05-18 13:08] LABS: INR-International Normal Ratio 1.3; PTT 35.8 sec (22.9-36.1); Prothrombin Time 15.7 sec (12.0-14.7)
[2021-05-18 13:57] LABS: Bacteria/HPF None Seen HPF (None Seen); Bilirubin Negative (Negative); Blood, Urine Negative (Negative); Clarity Clear (Clear); Glucose, Urine (Dipstick) Normal (Negative); Ketone, Urine Trace mg/dL (Negative); Leukocyte Negative Leu/uL (Negative); Nitrite Negative (Negative); Protein, Urine (Dipstick) 50 mg/dL (Neg-Trace); Specific Gravity, Urine 1.022 (1.002-1.036); Squamous Epithelial None Seen HPF (0-3); Urobilinogen Normal mg/dL (Less than 2); WBC/HPF 0-3 HPF (0-3); pH, Urine 5.5 (5.0-9.0)
[2021-05-18] MEDS ORDERED: Aspirin Chewable 81 MG TAB ONE (14:21)
[2021-05-18] MEDS ORDERED: Acetaminophen 325 MG TAB PO PRN (15:52)
[2021-05-18] MEDS ORDERED: Acetaminophen 650 MG Suppository PR PRN (15:52)
[2021-05-18] MEDS ORDERED: Ondansetron ODT 4 MG TAB PO PRN (15:52)
[2021-05-18] MEDS ORDERED: Ondansetron PF 4 MG/2 ML Vial IVP PRN (15:52)
[2021-05-18 16:55] LABS: SARS-CoV-2 NAA Rapid Test Not Detected (NotDetected)
[2021-05-18 17:20] LABS: Magnesium 1.6 mg/dL (1.6-2.6)
[2021-05-18 18:43] VITALS: BMI 25.1
[2021-05-18] MEDS ORDERED: Atorvastatin Calcium 40 MG TAB PO SCH (21:00)
[2021-05-18] MEDS: Apixaban 5 MG TAB PO SCH (21:01)
[2021-05-18] MEDS ORDERED: Magnesium Sulfate 4 GM in Sodium Chloride 0.9% 250 ML 250 ML IVPB SCH (21:30)
[2021-05-19 05:10] LABS: #Eosinphils 0.1 thou/uL (0.0-0.7); #Monocytes 0.8 thou/uL (0.11-0.59); #Neutrophils 4.9 thou/uL (1.40-6.50); %Basophils 0.4 % (0.0-1.0); %Eosinophils 1.8 % (0.0-10.0); %Lymphocytes 14.5 % (21.0-51.0); %Monocytes 12.1 % (0.0-10.0); %Neutrophils 71.2 % (42.0-75.0); Hemoglobin 10.9 g/dL (14.0-18.0); Mean Corpuscular HGB CONC 33.2 g/dL (32.0-36.0); Mean Corpuscular Hemoglobin 29.4 pg (27.0-31.0); Mean Corpuscular Volume 88.6 fL (78.0-98.0); Mean Platelet Volume 6.9 fL (7.4-10.4); Platelet Count 222 thou/uL (130-400); RBC Distribution Width 12.5 % (11.5-14.5); Red Blood Cell (RBC) Count 3.71 mill/uL (4.70-6.10); White Blood Cell (WBC) Count 6.9 thou/uL (4.8-10.8)
[2021-05-19 05:29] LABS: Anion Gap 12 mmol/L (10-20); BUN (Urea Nitrogen) 15 mg/dL (8.4-25.7); Calc. Creatinine Clearance 57 mL/min (70-130); Calcium 8.3 mg/dL (7.8-10.44); Carbon Dioxide 19 mmol/L (23-31); Cardiac Risk 2.4 (Less than 4.5); Chloride 103 mmol/L (98-107); Cholesterol 97 mg/dl (< 200 Desired); Glucose 84 mg/dL (83-110); HDL Cholesterol 40 mg/dL (>60 Neg Risk); LDL Cholesterol, Calculated 47 mg/dL; Potassium 3.8 mmol/L (3.5-5.1); Sodium 130 mmol/L (136-145); Triglycerides 51 mg/dL (Less than 150)
[2021-05-19] MEDS ORDERED: Senokot S 8.6-50 MG TAB PO PRN (07:47)
[2021-05-19] MEDS ORDERED: Cepastat Lozenges 1 LOZ PO PRN (07:47)
[2021-05-19] MEDS ORDERED: Artificial Tear Sol 15 ML BOT EA EYE PRN (07:47)
[2021-05-19] MEDS ORDERED: Bisacodyl 5 MG TAB PO PRN (07:47)
[2021-05-19] MEDS ORDERED: GUAIFENESIN SF SOLN 200 MG/10 ML UDCUP PO PRN (07:47)
[2021-05-19] MEDS ORDERED: hydrALAZINE 20 MG/ML VIAL SLOW IVP PRN (07:47)
[2021-05-19] MEDS ORDERED: Loratadine 10 MG TAB PO PRN (07:47)
[2021-05-19] MEDS ORDERED: HYDROcodone/Acetaminophen 5/325 mg Tablet PO PRN (07:47)
[2021-05-19] MEDS ORDERED: Calcium Carbonate 500 MG ChewTAB PO PRN (07:47)
[2021-05-19] MEDS ORDERED: Hydrocerin (Eucerin) Cream 120 gm Jar TOP PRN (07:47)
[2021-05-19] MEDS ORDERED: Melatonin 3 MG TAB PO PRN (07:47)
[2021-05-19] MEDS ORDERED: Loperamide HCl 2 MG CAP PO PRN (07:47)
[2021-05-19] MEDS ORDERED: Sodium Chloride 0.65% Nasal 44 ML BOT EA NARE PRN (07:47)
[2021-05-19] MEDS: Apixaban 5 MG TAB PO SCH (08:45)
[2021-05-19] MEDS ORDERED: Polyethylene Glycol 3350 17 GM Packet PO SCH (09:00)
[2021-05-19] MEDS ORDERED: hydrALAZINE 25 MG TAB PO SCH (09:00)
[2021-05-19] MEDS ORDERED: Aspirin 81 mg Enteric Coated Tablet PO SCH (09:00)
[2021-05-19] MEDS: Dronedarone HCl 400 MG TAB PO SCH ×2 (09:00→17:21)
[2021-05-19] MEDS ORDERED: Aspirin Chewable 81 MG TAB PO SCH (09:00)
[2021-05-19] MEDS ORDERED: Carvedilol 3.125 MG TAB PO SCH (09:00)
[2021-05-19] MEDS ORDERED: Lidocaine 5% Patch TD SCH (09:00)
[2021-05-19] MEDS ORDERED: Docusate 100 MG CAP PO SCH (09:00)
[2021-05-19] MEDS ORDERED: Losartan 25 MG TAB PO SCH (09:00)
[2021-05-19] MEDS ORDERED: Famotidine 20 MG TAB PO SCH (09:00)
[2021-05-19] MEDS ORDERED: Magnevist 469MG/ML 20 ML VIAL ONE (11:36)
[2021-05-19 15:20] VITALS: BP 151/79; TEMP 98.3
[2021-05-19] MEDS ORDERED: Transdermal Patch Removal TOP SCH (21:00)
[2021-05-19] MEDS ORDERED: Ezetimibe 10 MG TAB PO SCH (21:00)
[2021-05-19] MEDS ORDERED: Amlodipine 5 MG TAB PO SCH (21:00)
== END 2021-05-19 20:54 | DRG 69 ==
LOC: ERS 12:02 → ERHOLD 15:11 → 2SE 18:35 → OBSVTOIN 05-19 16:44
PROVIDERS: ADMIT Internal Medicine; ATTEND Internal Medicine
DX: G45.9 Transient cerebral ischemic attack, unspecified (principal); E87.1 Hypo-osmolality and hyponatremia; I48.20 Chronic atrial fibrillation, unspecified; Z20.822 Contact with and (suspected) exposure to COVID-19; F41.9 Anxiety disorder, unspecified; F32.9 Major depressive disorder, single episode, unspecified; N18.2 Chronic kidney disease, stage 2 (mild); E78.5 Hyperlipidemia, unspecified; I12.9 Hypertensive chronic kidney disease with stage 1 through stage 4 chronic kidney disease, or unspecified chronic kidney disease; I25.10 Atherosclerotic heart disease of native coronary artery without angina pectoris; I44.0 Atrioventricular block, first degree; Z79.01 Long term (current) use of anticoagulants; Z86.79 Personal history of other diseases of the circulatory system; Z95.1 Presence of aortocoronary bypass graft; Z98.49 Cataract extraction status, unspecified eye
CPT/HCPCS: 0240U; 36415; 51701; 70450; 70553; 71045; 80048; 80053; 80061; 81003; 81015; 83605; 83735; 83930; 83935; 84300; 84443; 84484; 84560; 85025; 85610; 85730; 87040; 87086; 93005; 93306; 93880; 95712; 95819; 95957; 96365; A9579; G0378; J3475; J7050

== ENCOUNTER 2021-09-09 15:03 | Emergency (ER) | payer MEDICARE, OTHER ==
[2021-09-09 15:58] LABS: #Eosinphils 0.2 thou/uL (0.0-0.7); #Lymphocytes 1.2 thou/uL (1.20-3.40); #Monocytes 0.6 thou/uL (0.11-0.59); #Neutrophils 5.5 thou/uL (1.40-6.50); %Basophils 0.2 % (0.0-1.0); %Eosinophils 2.7 % (0.0-10.0); %Lymphocytes 15.8 % (21.0-51.0); %Monocytes 7.7 % (0.0-10.0); %Neutrophils 73.7 % (42.0-75.0); Hemoglobin 13.8 g/dL (14.0-18.0); Mean Corpuscular HGB CONC 34.3 g/dL (32.0-36.0); Mean Corpuscular Hemoglobin 30.1 pg (27.0-31.0); Mean Corpuscular Volume 87.8 fL (78.0-98.0); Mean Platelet Volume 6.8 fL (7.4-10.4); Platelet Count 185 thou/uL (130-400); RBC Distribution Width 12.9 % (11.5-14.5); Red Blood Cell (RBC) Count 4.58 mill/uL (4.70-6.10); White Blood Cell (WBC) Count 7.4 thou/uL (4.8-10.8)
[2021-09-09 16:27] LABS: ALT (SGPT) 9 U/L (8-55); AST (SGOT) 14 U/L (5-34); Albumin 3.7 g/dL (3.4-4.8); Alkaline Phosphatase 71 U/L (40-110); Anion Gap 12 mmol/L (10-20); BUN (Urea Nitrogen) 28 mg/dL (8.4-25.7); Bilirubin, Total 0.4 mg/dL (0.2-1.2); Calc. Creatinine Clearance 0 mL/min (70-130); Calcium 8.9 mg/dL (7.8-10.44); Carbon Dioxide 25 mmol/L (23-31); Chloride 104 mmol/L (98-107); Globulin 2.4 g/dL (2.4-3.5); Glucose 135 mg/dL (83-110); Potassium 4.1 mmol/L (3.5-5.1); Protein, Total 6.1 g/dL (5.8-8.1); Sodium 137 mmol/L (136-145)
[2021-09-09] MEDS ORDERED: hydrALAZINE 25 MG TAB ONE (16:47)
[2021-09-09 17:39] LABS: Bacteria/HPF 4+ HPF (None Seen); Bilirubin Negative (Negative); Blood, Urine 1+ (Negative); Clarity Extra Turbid (Clear); Glucose, Urine (Dipstick) Normal (Negative); Ketone, Urine Negative (Negative); Leukocyte 500 Leu/uL (Negative); Nitrite Negative (Negative); Protein, Urine (Dipstick) 30 mg/dL (Neg-Trace); Specific Gravity, Urine 1.019 (1.002-1.036); Squamous Epithelial 0-3 HPF (0-3); Urobilinogen Normal mg/dL (Less than 2); WBC/HPF Greater than 50 HPF (0-3)
== END 2021-09-09 18:13 | disposition home or self-care (01) ==
LOC: ERS 15:03
DX: I10 Essential (primary) hypertension (principal); Z87.891 Personal history of nicotine dependence; E78.5 Hyperlipidemia, unspecified; Z79.899 Other long term (current) drug therapy; Z79.82 Long term (current) use of aspirin; Z79.01 Long term (current) use of anticoagulants
CPT/HCPCS: 36415; 71045; 80053; 81003; 81015; 83880; 84484; 85025; 93005; 94760

== ENCOUNTER 2021-09-15 12:50 | Inpatient (IN) | payer MEDICARE, OTHER ==
[2021-09-15 13:55] LABS: #Eosinphils 0.1 thou/uL (0.0-0.7); #Lymphocytes 0.8 thou/uL (1.20-3.40); #Monocytes 0.7 thou/uL (0.11-0.59); #Neutrophils 8.8 thou/uL (1.40-6.50); %Eosinophils 0.8 % (0.0-10.0); %Lymphocytes 7.3 % (21.0-51.0); %Monocytes 6.4 % (0.0-10.0); %Neutrophils 85.4 % (42.0-75.0); Mean Corpuscular HGB CONC 34.3 g/dL (32.0-36.0); Mean Corpuscular Hemoglobin 30.3 pg (27.0-31.0); Mean Corpuscular Volume 88.3 fL (78.0-98.0); Mean Platelet Volume 7.2 fL (7.4-10.4); Platelet Count 149 thou/uL (130-400); Red Blood Cell (RBC) Count 4.63 mill/uL (4.70-6.10); White Blood Cell (WBC) Count 10.3 thou/uL (4.8-10.8)
[2021-09-15 16:06] LABS: ALT (SGPT) 10 U/L (8-55); AST (SGOT) 14 U/L (5-34); Albumin 3.6 g/dL (3.4-4.8); Alkaline Phosphatase 66 U/L (40-110); Anion Gap 12 mmol/L (10-20); BUN (Urea Nitrogen) 29 mg/dL (8.4-25.7); Bilirubin, Total 0.6 mg/dL (0.2-1.2); Calc. Creatinine Clearance 0 mL/min (70-130); Calcium 8.8 mg/dL (7.8-10.44); Carbon Dioxide 23 mmol/L (23-31); Chloride 105 mmol/L (98-107); Globulin 2.8 g/dL (2.4-3.5); Glucose 105 mg/dL (83-110); Potassium 4.2 mmol/L (3.5-5.1); Protein, Total 6.4 g/dL (5.8-8.1); Sodium 136 mmol/L (136-145)
[2021-09-15] MEDS ORDERED: hydrALAZINE 20 MG/ML VIAL ONE (18:57)
[2021-09-15 19:48] LABS: Troponin I Less than 0.010 ng/mL (< 0.028)
[2021-09-15 20:58] LABS: Bacteria/HPF 4+ HPF (None Seen); Bilirubin Negative (Negative); Blood, Urine Trace (Negative); Clarity Turbid (Clear); Glucose, Urine (Dipstick) Normal (Negative); Ketone, Urine Negative (Negative); Leukocyte 500 Leu/uL (Negative); Mucous/LPF Rare LPF (<2+); Nitrite Negative (Negative); Protein, Urine (Dipstick) 30 mg/dL (Neg-Trace); Specific Gravity, Urine 1.014 (1.002-1.036); Squamous Epithelial None Seen HPF (0-3); Urobilinogen Normal mg/dL (Less than 2); WBC/HPF Greater than 50 HPF (0-3); pH, Urine 5.5 (5.0-9.0)
[2021-09-15] MEDS ORDERED: Ondansetron PF 4 MG/2 ML Vial IVP PRN ×2 (21:39→21:45)
[2021-09-15] MEDS ORDERED: Acetaminophen 325 MG TAB PO PRN (21:45)
[2021-09-15] MEDS ORDERED: Sodium Chloride 0.9% 1,000 ML IV SCH (21:45)
[2021-09-15] MEDS ORDERED: Ondansetron ODT 4 MG TAB SL PRN (21:45)
[2021-09-15] MEDS ORDERED: Sodium Chloride 0.9% 500 ML IV SCH (22:00)
[2021-09-15 22:17] LABS: Troponin I Less than 0.010 ng/mL (< 0.028)
[2021-09-15 22:54] VITALS: BMI 23.4
[2021-09-15] MEDS ORDERED: hydrALAZINE 20 MG/ML VIAL SLOW IVP PRN (23:15)
[2021-09-15] MEDS: cefTRIAXone\\ROCEPHIN 1 GM in Sodium Chloride 0.9% 100 ML IVPB SCH (23:27)
[2021-09-16 04:55] LABS: #Eosinphils 0.1 thou/uL (0.0-0.7); #Lymphocytes 1.1 thou/uL (1.20-3.40); #Neutrophils 7.1 thou/uL (1.40-6.50); %Basophils 0.2 % (0.0-1.0); %Eosinophils 0.7 % (0.0-10.0); %Lymphocytes 12.2 % (21.0-51.0); %Monocytes 10.9 % (0.0-10.0); %Neutrophils 76.1 % (42.0-75.0); Hemoglobin 12.6 g/dL (14.0-18.0); Mean Corpuscular HGB CONC 34.1 g/dL (32.0-36.0); Mean Corpuscular Hemoglobin 30.2 pg (27.0-31.0); Mean Corpuscular Volume 88.6 fL (78.0-98.0); Mean Platelet Volume 6.8 fL (7.4-10.4); Platelet Count 145 thou/uL (130-400); Red Blood Cell (RBC) Count 4.18 mill/uL (4.70-6.10); White Blood Cell (WBC) Count 9.3 thou/uL (4.8-10.8)
[2021-09-16 05:25] LABS: Anion Gap 12 mmol/L (10-20); BUN (Urea Nitrogen) 22 mg/dL (8.4-25.7); Calc. Creatinine Clearance 47 mL/min (70-130); Calcium 8.6 mg/dL (7.8-10.44); Carbon Dioxide 24 mmol/L (23-31); Chloride 106 mmol/L (98-107); Glucose 92 mg/dL (83-110); Potassium 3.8 mmol/L (3.5-5.1); Sodium 138 mmol/L (136-145)
[2021-09-16] MEDS ORDERED: Amlodipine 5 MG TAB PO SCH (09:00)
[2021-09-16] MEDS ORDERED: hydrALAZINE 25 MG TAB PO SCH (09:00)
[2021-09-16] MEDS: Losartan 25 MG TAB PO SCH (09:08)
[2021-09-16] MEDS: Aspirin Chewable 81 MG TAB PO SCH (09:09)
[2021-09-16] MEDS: Amlodipine 10 MG TAB PO SCH (09:09)
[2021-09-16] MEDS: Apixaban 5 MG TAB PO SCH ×2 (09:09→20:51)
[2021-09-16] MEDS: Carvedilol 3.125 MG TAB PO SCH ×2 (09:09→20:51)
[2021-09-16 16:13] LABS: SARS-CoV-2 PCR by NAA Not Detected (NotDetected)
[2021-09-16] MEDS: Dronedarone HCl 400 MG TAB PO SCH (17:34)
[2021-09-16] MEDS: cefTRIAXone\\ROCEPHIN 1 GM in Sodium Chloride 0.9% 100 ML IVPB SCH (20:52)
[2021-09-17] MEDS: Dronedarone HCl 400 MG TAB PO SCH ×2 (08:49→16:53)
[2021-09-17] MEDS: Amlodipine 10 MG TAB PO SCH (08:49)
[2021-09-17] MEDS: Apixaban 5 MG TAB PO SCH (08:52)
[2021-09-17] MEDS: Losartan 25 MG TAB PO SCH (08:52)
[2021-09-17] MEDS: Aspirin Chewable 81 MG TAB PO SCH (08:52)
[2021-09-17] MEDS: Carvedilol 3.125 MG TAB PO SCH (08:53)
[2021-09-17 15:51] VITALS: BP 149/71; TEMP 98.4
== END 2021-09-17 18:53 | disposition home or self-care (01) | DRG 312 ==
LOC: ERS 12:50 → 2SW 18:48 → OBSVTOIN 09-16 17:23
PROVIDERS: ADMIT Family Medicine; ATTEND Internal Medicine
DX: I95.1 Orthostatic hypotension (principal); N39.0 Urinary tract infection, site not specified; Z20.822 Contact with and (suspected) exposure to COVID-19; F17.210 Nicotine dependence, cigarettes, uncomplicated; N18.9 Chronic kidney disease, unspecified; I12.9 Hypertensive chronic kidney disease with stage 1 through stage 4 chronic kidney disease, or unspecified chronic kidney disease; I71.4 Abdominal aortic aneurysm, without rupture; E78.5 Hyperlipidemia, unspecified; I25.10 Atherosclerotic heart disease of native coronary artery without angina pectoris; I48.91 Unspecified atrial fibrillation; Z95.1 Presence of aortocoronary bypass graft; Z79.01 Long term (current) use of anticoagulants; Z79.82 Long term (current) use of aspirin; Z79.899 Other long term (current) drug therapy
CPT/HCPCS: 36415; 70450; 71045; 80048; 80053; 81003; 81015; 84484; 85025; 93005; 96365; 96374; 96375; G0378; J0360; J0696; J3490; J7050; U0003; U0005

== ENCOUNTER 2021-12-07 23:46 | Inpatient (IN) | payer MEDICARE, OTHER ==
[2021-12-08 00:22] LABS: #Eosinphils 0.3 thou/uL (0.0-0.7); #Lymphocytes 1.4 thou/uL (1.20-3.40); #Monocytes 0.7 thou/uL (0.11-0.59); #Neutrophils 5.1 thou/uL (1.40-6.50); %Basophils 0.5 % (0.0-1.0); %Eosinophils 4.2 % (0.0-10.0); %Lymphocytes 18.8 % (21.0-51.0); %Monocytes 9.2 % (0.0-10.0); %Neutrophils 67.2 % (42.0-75.0); Hemoglobin 13.8 g/dL (14.0-18.0); Mean Corpuscular HGB CONC 34.1 g/dL (32.0-36.0); Mean Corpuscular Hemoglobin 30.2 pg (27.0-31.0); Mean Corpuscular Volume 88.5 fL (78.0-98.0); Mean Platelet Volume 6.8 fL (7.4-10.4); Platelet Count 199 thou/uL (130-400); RBC Distribution Width 12.8 % (11.5-14.5); Red Blood Cell (RBC) Count 4.56 mill/uL (4.70-6.10); White Blood Cell (WBC) Count 7.6 thou/uL (4.8-10.8)
[2021-12-08 00:40] LABS: ALT (SGPT) 10 U/L (8-55); AST (SGOT) 16 U/L (5-34); Alkaline Phosphatase 62 U/L (40-110); Anion Gap 12 mmol/L (10-20); BUN (Urea Nitrogen) 33 mg/dL (8.4-25.7); Bilirubin, Total 0.4 mg/dL (0.2-1.2); Calc. Creatinine Clearance 0 mL/min (70-130); Calcium 8.6 mg/dL (7.8-10.44); Carbon Dioxide 23 mmol/L (23-31); Chloride 101 mmol/L (98-107); Globulin 2.2 g/dL (2.4-3.5); Glucose 95 mg/dL (83-110); Magnesium 2.1 mg/dL (1.6-2.6); Potassium 4.5 mmol/L (3.5-5.1); Protein, Total 6.2 g/dL (5.8-8.1); Sodium 131 mmol/L (136-145)
[2021-12-08] MEDS ORDERED: Triple Antibiotic Oint 1 GM Packet ONE (02:57)
[2021-12-08] MEDS ORDERED: Acetaminophen 500 MG TAB ONE (05:46)
[2021-12-08] MEDS ORDERED: Carvedilol 3.125 MG TAB PO SCH (07:30)
[2021-12-08] MEDS ORDERED: Aspirin Chewable 81 MG TAB PO SCH ×2 (07:30→13:00)
[2021-12-08] MEDS ORDERED: Apixaban 2.5 MG TAB PO SCH (07:30)
[2021-12-08] MEDS ORDERED: Dronedarone HCl 400 MG TAB PO SCH (07:30)
[2021-12-08] MEDS ORDERED: Losartan 25 MG TAB PO SCH ×2 (07:30→13:15)
[2021-12-08] MEDS ORDERED: Aspirin Chewable 81 MG TAB ONE (08:14)
[2021-12-08 09:33] LABS: Bilirubin Negative (Negative); Blood, Urine Negative (Negative); Glucose, Urine (Dipstick) Negative (Negative); Ketone, Urine Negative (Negative); Leukocyte Negative (Negative); Nitrite Negative (Negative); Protein, Urine (Dipstick) Negative (Neg-Trace); Specific Gravity, Urine 1.015 (1.005-1.030); Urobilinogen 0.2 mg/dL (Less than 2)
[2021-12-08 09:38] LABS: Clarity Clear (Clear)
[2021-12-08] MEDS ORDERED: Labetalol HCl 100 MG/20 ML VIAL ONE (09:59)
[2021-12-08] MEDS ORDERED: Ondansetron ODT 4 MG TAB PO PRN (12:08)
[2021-12-08] MEDS ORDERED: Ondansetron PF 4 MG/2 ML Vial IVP PRN (12:08)
[2021-12-08] MEDS ORDERED: Bisacodyl 10 MG SUPP PR PRN (12:08)
[2021-12-08] MEDS ORDERED: Acetaminophen 325 MG TAB PO PRN (12:08)
[2021-12-08] MEDS ORDERED: Bisacodyl 5 MG TAB PO PRN (12:08)
[2021-12-08] MEDS ORDERED: NIFEdipine XL 60 MG TAB PO SCH (13:15)
[2021-12-08] MEDS ORDERED: hydrALAZINE 20 MG/ML VIAL ONE (14:12)
[2021-12-08] MEDS: hydrALAZINE 20 MG/ML VIAL SLOW IVP PRN (15:06)
[2021-12-08 15:37] LABS: CK (CPK) 67 U/L (30-200)
[2021-12-08 16:58] VITALS: BMI 24.2
[2021-12-08 18:15] LABS: SARS-CoV-2 NAA Rapid Test Not Detected (NotDetected)
[2021-12-08] MEDS: Carvedilol 3.125 MG TAB PO SCH (18:25)
[2021-12-08] MEDS: Dronedarone HCl 400 MG TAB PO SCH (18:26)
[2021-12-08] MEDS ORDERED: Apixaban 5 MG TAB PO SCH (21:00)
[2021-12-08] MEDS: Senokot S 8.6-50 MG TAB PO SCH (21:29)
[2021-12-08] MEDS: Ezetimibe 10 MG TAB PO SCH (21:30)
[2021-12-08] MEDS: Apixaban 2.5 MG TAB PO SCH (21:30)
[2021-12-09] MEDS: hydrALAZINE 20 MG/ML VIAL SLOW IVP PRN (04:01)
[2021-12-09 06:01] LABS: #Eosinphils 0.3 thou/uL (0.0-0.7); #Lymphocytes 1.4 thou/uL (1.20-3.40); #Monocytes 0.7 thou/uL (0.11-0.59); #Neutrophils 4.1 thou/uL (1.40-6.50); %Basophils 0.7 % (0.0-1.0); %Eosinophils 4.5 % (0.0-10.0); %Lymphocytes 20.8 % (21.0-51.0); %Monocytes 10.7 % (0.0-10.0); %Neutrophils 63.3 % (42.0-75.0); Mean Corpuscular HGB CONC 35.5 g/dL (32.0-36.0); Mean Corpuscular Hemoglobin 30.9 pg (27.0-31.0); Mean Corpuscular Volume 86.9 fL (78.0-98.0); Mean Platelet Volume 6.7 fL (7.4-10.4); Platelet Count 176 thou/uL (130-400); RBC Distribution Width 12.7 % (11.5-14.5); Red Blood Cell (RBC) Count 4.21 mill/uL (4.70-6.10); White Blood Cell (WBC) Count 6.6 thou/uL (4.8-10.8)
[2021-12-09 06:08] LABS: Hemoglobin A1c 5.3 % (4.0-6.0)
[2021-12-09 06:13] LABS: Phosphorus 3.1 mg/dL (2.3-4.7)
[2021-12-09 06:15] LABS: Anion Gap 13 mmol/L (10-20); BUN (Urea Nitrogen) 18 mg/dL (8.4-25.7); Calc. Creatinine Clearance 56 mL/min (70-130); Carbon Dioxide 19 mmol/L (23-31); Cardiac Risk 2.5 (Less than 4.5); Chloride 102 mmol/L (98-107); Cholesterol 117 mg/dl (< 200 Desired); Glucose 91 mg/dL (83-110); HDL Cholesterol 46 mg/dL (>60 Neg Risk); LDL Cholesterol, Calculated 60 mg/dL; Magnesium 1.8 mg/dL (1.6-2.6); Potassium 3.9 mmol/L (3.5-5.1); Sodium 130 mmol/L (136-145); Triglycerides 57 mg/dL (Less than 150)
[2021-12-09] MEDS: Polyethylene Glycol 3350 17 GM Packet PO SCH (08:25)
[2021-12-09] MEDS: Senokot S 8.6-50 MG TAB PO SCH ×2 (08:25→20:16)
[2021-12-09] MEDS: Cyanocobalamin (Vitamin B-12) 1,000 MCG TAB PO SCH (08:26)
[2021-12-09] MEDS: NIFEdipine XL 60 MG TAB PO SCH (08:26)
[2021-12-09] MEDS: Carvedilol 3.125 MG TAB PO SCH ×2 (08:26→17:34)
[2021-12-09] MEDS: Dronedarone HCl 400 MG TAB PO SCH ×2 (08:26→17:34)
[2021-12-09] MEDS: Losartan 25 MG TAB PO SCH (08:27)
[2021-12-09] MEDS: Apixaban 2.5 MG TAB PO SCH ×2 (08:27→20:16)
[2021-12-09] MEDS: Aspirin Chewable 81 MG TAB PO SCH (08:27)
[2021-12-09] MEDS ORDERED: Non-Formulary Item 1 EACH (Mecobalamin [B12 Active] 1,000 MCG Tab.Chew) PO SCH (09:00)
[2021-12-09 11:11] LABS: Syphilis Antibody Nonreactive (Nonreactive); Syphilis Antibody Index 0.02 S/CO (<1.00 Non-Reactive)
[2021-12-09] MEDS: Ezetimibe 10 MG TAB PO SCH (20:16)
[2021-12-10 05:35] LABS: #Eosinphils 0.2 thou/uL (0.0-0.7); #Lymphocytes 1.6 thou/uL (1.20-3.40); #Monocytes 0.8 thou/uL (0.11-0.59); #Neutrophils 4.1 thou/uL (1.40-6.50); %Basophils 0.6 % (0.0-1.0); %Eosinophils 2.9 % (0.0-10.0); %Lymphocytes 23.9 % (21.0-51.0); %Monocytes 11.5 % (0.0-10.0); %Neutrophils 61.2 % (42.0-75.0); Hemoglobin 12.2 g/dL (14.0-18.0); Mean Corpuscular HGB CONC 34.5 g/dL (32.0-36.0); Mean Corpuscular Hemoglobin 30.3 pg (27.0-31.0); Mean Corpuscular Volume 87.9 fL (78.0-98.0); Mean Platelet Volume 6.7 fL (7.4-10.4); Platelet Count 168 thou/uL (130-400); RBC Distribution Width 12.8 % (11.5-14.5); Red Blood Cell (RBC) Count 4.01 mill/uL (4.70-6.10); White Blood Cell (WBC) Count 6.7 thou/uL (4.8-10.8)
[2021-12-10 05:57] LABS: Anion Gap 12 mmol/L (10-20); BUN (Urea Nitrogen) 19 mg/dL (8.4-25.7); Calc. Creatinine Clearance 51 mL/min (70-130); Calcium 8.8 mg/dL (7.8-10.44); Carbon Dioxide 22 mmol/L (23-31); Chloride 100 mmol/L (98-107); Glucose 83 mg/dL (83-110); Magnesium 1.8 mg/dL (1.6-2.6); Phosphorus 3.4 mg/dL (2.3-4.7); Potassium 3.8 mmol/L (3.5-5.1); Sodium 130 mmol/L (136-145)
[2021-12-10 06:16] LABS: HIV (1/2) Antibody/Antigen Non-Reactive (NonReactive); HIV 1/2 INDEX 0.11 S/CO (<1.00)
[2021-12-10] MEDS: Aspirin Chewable 81 MG TAB PO SCH (07:58)
[2021-12-10] MEDS: Dronedarone HCl 400 MG TAB PO SCH ×2 (07:58→16:24)
[2021-12-10] MEDS: NIFEdipine XL 60 MG TAB PO SCH (07:58)
[2021-12-10] MEDS: Cyanocobalamin (Vitamin B-12) 1,000 MCG TAB PO SCH (07:58)
[2021-12-10] MEDS: Losartan 25 MG TAB PO SCH (07:58)
[2021-12-10] MEDS: Carvedilol 3.125 MG TAB PO SCH ×2 (07:59→16:24)
[2021-12-10] MEDS: Apixaban 2.5 MG TAB PO SCH ×2 (07:59→21:08)
[2021-12-10] MEDS: Polyethylene Glycol 3350 17 GM Packet PO SCH (08:03)
[2021-12-10] MEDS: Senokot S 8.6-50 MG TAB PO SCH ×2 (08:04→21:08)
[2021-12-10] MEDS: Ezetimibe 10 MG TAB PO SCH (21:08)
[2021-12-11] MEDS: hydrALAZINE 20 MG/ML VIAL SLOW IVP PRN (04:42)
[2021-12-11 05:13] LABS: #Eosinphils 0.3 thou/uL (0.0-0.7); #Lymphocytes 1.5 thou/uL (1.20-3.40); #Monocytes 0.7 thou/uL (0.11-0.59); %Basophils 0.6 % (0.0-1.0); %Eosinophils 4.5 % (0.0-10.0); %Lymphocytes 22.9 % (21.0-51.0); %Monocytes 10.7 % (0.0-10.0); %Neutrophils 61.4 % (42.0-75.0); Hemoglobin 12.7 g/dL (14.0-18.0); Mean Corpuscular HGB CONC 34.7 g/dL (32.0-36.0); Mean Corpuscular Hemoglobin 30.2 pg (27.0-31.0); Mean Platelet Volume 6.5 fL (7.4-10.4); Platelet Count 176 thou/uL (130-400); RBC Distribution Width 12.6 % (11.5-14.5); White Blood Cell (WBC) Count 6.5 thou/uL (4.8-10.8)
[2021-12-11 05:34] LABS: Anion Gap 12 mmol/L (10-20); BUN (Urea Nitrogen) 16 mg/dL (8.4-25.7); Calc. Creatinine Clearance 60 mL/min (70-130); Calcium 8.6 mg/dL (7.8-10.44); Carbon Dioxide 21 mmol/L (23-31); Chloride 96 mmol/L (98-107); Glucose 83 mg/dL (83-110); Magnesium 1.7 mg/dL (1.6-2.6); Phosphorus 3.2 mg/dL (2.3-4.7); Potassium 3.5 mmol/L (3.5-5.1); Sodium 125 mmol/L (136-145)
[2021-12-11] MEDS: Carvedilol 3.125 MG TAB PO SCH (09:56)
[2021-12-11] MEDS: Dronedarone HCl 400 MG TAB PO SCH (09:56)
[2021-12-11] MEDS: Cyanocobalamin (Vitamin B-12) 1,000 MCG TAB PO SCH (09:57)
[2021-12-11] MEDS: Losartan 25 MG TAB PO SCH (09:57)
[2021-12-11] MEDS: Aspirin Chewable 81 MG TAB PO SCH (09:57)
[2021-12-11] MEDS: Apixaban 2.5 MG TAB PO SCH (09:57)
[2021-12-11] MEDS: NIFEdipine XL 60 MG TAB PO SCH (09:58)
[2021-12-11] MEDS: Senokot S 8.6-50 MG TAB PO SCH (10:00)
[2021-12-11] MEDS: Polyethylene Glycol 3350 17 GM Packet PO SCH (10:00)
[2021-12-11 15:51] VITALS: BP 164/99; TEMP 97.5
== END 2021-12-11 16:50 | DRG 92 ==
LOC: ERS 23:46 → ERHOLD 12-08 11:20 → OBSVTOIN 12-08 12:08 → NEURO 12-08 14:43
PROVIDERS: ADMIT Family Medicine; ATTEND Internal Medicine
DX: R26.89 Other abnormalities of gait and mobility (principal); I50.32 Chronic diastolic (congestive) heart failure; E87.1 Hypo-osmolality and hyponatremia; I13.0 Hypertensive heart and chronic kidney disease with heart failure and stage 1 through stage 4 chronic kidney disease, or unspecified chronic kidney disease; Z66 Do not resuscitate; Z20.822 Contact with and (suspected) exposure to COVID-19; R42 Dizziness and giddiness; I48.0 Paroxysmal atrial fibrillation; E78.5 Hyperlipidemia, unspecified; I65.22 Occlusion and stenosis of left carotid artery; I71.4 Abdominal aortic aneurysm, without rupture; F41.9 Anxiety disorder, unspecified; R29.6 Repeated falls; F32.A Depression, unspecified; I95.1 Orthostatic hypotension; N18.32 Chronic kidney disease, stage 3b; N40.1 Benign prostatic hyperplasia with lower urinary tract symptoms; N39.498 Other specified urinary incontinence; T44.3X5A Adverse effect of other parasympatholytics [anticholinergics and antimuscarinics] and spasmolytics, initial encounter; Z95.1 Presence of aortocoronary bypass graft; Z86.73 Personal history of transient ischemic attack (TIA), and cerebral infarction without residual deficits; Z91.81 History of falling; Z98.49 Cataract extraction status, unspecified eye; Z98.890 Other specified postprocedural states; Z87.891 Personal history of nicotine dependence; Z79.899 Other long term (current) drug therapy; Z79.82 Long term (current) use of aspirin
CPT/HCPCS: 36415; 70450; 70551; 71045; 76770; 80048; 80053; 80061; 81003; 82607; 82746; 83036; 83735; 83880; 84100; 84484; 85025; 86780; 87389; 93005; 93306; 93880; 96374; G0378; J0360; U0002

== ENCOUNTER → 2022-02-16 | Day surgery (SDC) | payer MEDICARE, OTHER ==
[~2022-02-16] MED LIST changes: -ISOVUE-370 76%-LOCM 1 ML ONE; +Lidocaine 1% PF 5 ML VIAL ONE; +Sodium Bicarbonate 2.5 MEQ/5 ML VIAL ONE
[2022-02-16 15:51] VITALS: BP 165/95
== END | disposition home or self-care (01) ==
LOC: ULT 12:28
PROVIDERS: ATTEND Otolaryngology Plastic Surgery within the Head & Neck
PROC: 0G9H3ZX Drainage of Right Thyroid Gland Lobe, Percutaneous Approach, Diagnostic (ICD-10-PCS; principal; 2022-02-16)
DX: E04.1 Nontoxic single thyroid nodule (principal); I10 Essential (primary) hypertension; E78.5 Hyperlipidemia, unspecified; J44.9 Chronic obstructive pulmonary disease, unspecified; Z66 Do not resuscitate; Z87.891 Personal history of nicotine dependence; Z79.01 Long term (current) use of anticoagulants; Z79.82 Long term (current) use of aspirin; Z79.899 Other long term (current) drug therapy; Z88.1 Allergy status to other antibiotic agents; Z95.1 Presence of aortocoronary bypass graft
CPT/HCPCS: 60100; 76942; 88173

== ENCOUNTER 2022-08-22 15:16 | Outpatient (CLI) | payer MEDICARE, OTHER | END 2022-08-22 15:17 | disposition home or self-care (01) | LOC: BICULT 15:16 | PROVIDERS: ATTEND Otolaryngology Plastic Surgery within the Head & Neck | DX: E04.2 Nontoxic multinodular goiter (principal) | CPT/HCPCS: 76536 ==

== ENCOUNTER 2022-10-17 08:07 | Inpatient (IN) | payer MEDICARE, OTHER ==
[2022-10-17 08:39] LABS: Bilirubin Negative (Negative); Blood, Urine Negative (Negative); Clarity Clear (Clear); Glucose, Urine (Dipstick) Normal (Negative); Ketone, Urine Negative (Negative); Leukocyte Negative Leu/uL (Negative); Nitrite Negative (Negative); Protein, Urine (Dipstick) 20 mg/dL (Neg-Trace); Specific Gravity, Urine 1.017 (1.002-1.036); Urobilinogen Normal mg/dL (Less than 2); pH, Urine 5.5 (5.0-9.0)
[2022-10-17 09:02] LABS: #Lymphocytes 0.8 thou/uL (1.20-3.40); #Monocytes 0.9 thou/uL (0.11-0.59); #Neutrophils 5.9 thou/uL (1.40-6.50); %Basophils 0.4 % (0.0-1.0); %Eosinophils 0.6 % (0.0-10.0); %Lymphocytes 10.8 % (21.0-51.0); %Monocytes 12.2 % (0.0-10.0); %Neutrophils 76.1 % (42.0-75.0); Hemoglobin 12.5 g/dL (14.0-18.0); Mean Corpuscular HGB CONC 34.3 g/dL (32.0-36.0); Mean Corpuscular Hemoglobin 30.4 pg (27.0-31.0); Mean Corpuscular Volume 88.6 fl (78.0-98.0); Mean Platelet Volume 6.7 fL (7.4-10.4); Platelet Count 210 10x3/uL (130-400); RBC Distribution Width 13.6 % (11.5-14.5); Red Blood Cell (RBC) Count 4.12 mill/uL (4.70-6.10); White Blood Cell (WBC) Count 7.7 10x3/uL (4.8-10.8)
[2022-10-17 09:21] LABS: ALT (SGPT) 7 U/L (8-55); AST (SGOT) 17 U/L (5-34); Albumin 3.8 g/dL (3.4-4.8); Alkaline Phosphatase 79 U/L (40-110); Anion Gap 11 mmol/L (10-20); BUN (Urea Nitrogen) 19 mg/dL (8.4-25.7); Bilirubin, Total 0.6 mg/dL (0.2-1.2); Calc. Creatinine Clearance 0 mL/min (70-130); Calcium 8.9 mg/dL (7.8-10.44); Carbon Dioxide 24 mmol/L (23-31); Chloride 103 mmol/L (98-107); Estimated GFR 76; Glucose 89 mg/dL (83-110); Potassium 4.4 mmol/L (3.5-5.1); Protein, Total 5.8 g/dL (5.8-8.1); Sodium 134 mmol/L (136-145)
[2022-10-17] MEDS ORDERED: Aspirin Chewable 81 MG TAB ONE (10:05)
[2022-10-17] MEDS ORDERED: hydrALAZINE 20 MG/ML VIAL ONE (10:36)
[2022-10-17] MEDS ORDERED: hydrALAZINE 20 MG/ML VIAL SLOW IVP PRN (10:47)
[2022-10-17] MEDS ORDERED: Acetaminophen 650 MG Suppository PR PRN (10:47)
[2022-10-17] MEDS ORDERED: Acetaminophen 325 MG TAB PO PRN (10:47)
[2022-10-17 12:19] LABS: Troponin I 0.017 ng/mL (< 0.028)
[2022-10-17 15:24] LABS: Troponin I 0.013 ng/mL (< 0.028)
[2022-10-17] MEDS: Dronedarone HCl 400 MG TAB PO SCH (18:18)
[2022-10-17] MEDS: Apixaban 2.5 MG TAB PO SCH (21:49)
[2022-10-17] MEDS: Atorvastatin Calcium 40 MG TAB PO SCH (21:49)
[2022-10-17] MEDS ORDERED: Albuterol 200 PUFF (6.7GM INHALER) INH PRN (23:15)
[2022-10-17 23:45] VITALS: BMI 22.4
[2022-10-18 04:31] LABS: #Lymphocytes 1.1 thou/uL (1.20-3.40); #Neutrophils 4.8 thou/uL (1.40-6.50); %Basophils 0.2 % (0.0-1.0); %Eosinophils 0.3 % (0.0-10.0); %Lymphocytes 15.4 % (21.0-51.0); %Monocytes 14.8 % (0.0-10.0); %Neutrophils 69.3 % (42.0-75.0); Hemoglobin 11.8 g/dL (14.0-18.0); Mean Corpuscular HGB CONC 33.9 g/dL (32.0-36.0); Mean Corpuscular Hemoglobin 30.3 pg (27.0-31.0); Mean Corpuscular Volume 89.4 fl (78.0-98.0); Platelet Count 188 10x3/uL (130-400); RBC Distribution Width 13.6 % (11.5-14.5); Red Blood Cell (RBC) Count 3.89 mill/uL (4.70-6.10); White Blood Cell (WBC) Count 6.9 10x3/uL (4.8-10.8)
[2022-10-18 04:52] LABS: Anion Gap 12 mmol/L (10-20); BUN (Urea Nitrogen) 18 mg/dL (8.4-25.7); Calc. Creatinine Clearance 61 mL/min (70-130); Calcium 8.6 mg/dL (7.8-10.44); Carbon Dioxide 22 mmol/L (23-31); Cardiac Risk 2.5 (Less than 4.5); Chloride 103 mmol/L (98-107); Cholesterol 122 mg/dl (< 200 Desired); Estimated GFR 83; Glucose 84 mg/dL (83-110); HDL Cholesterol 48 mg/dL (>60 Neg Risk); LDL Cholesterol, Calculated 64 mg/dL; Potassium 3.6 mmol/L (3.5-5.1); Sodium 133 mmol/L (136-145); Triglycerides 51 mg/dL (Less than 150)
[2022-10-18] MEDS ORDERED: Aspirin 81 mg Enteric Coated Tablet PO SCH (09:00)
[2022-10-18] MEDS: Dronedarone HCl 400 MG TAB PO SCH ×2 (09:44→18:08)
[2022-10-18] MEDS: Losartan 25 MG TAB PO SCH (09:44)
[2022-10-18] MEDS: Carvedilol 3.125 MG TAB PO SCH ×2 (09:44→22:13)
[2022-10-18] MEDS: Aspirin Chewable 81 MG TAB PO SCH (09:44)
[2022-10-18] MEDS: Apixaban 2.5 MG TAB PO SCH ×2 (09:45→22:12)
[2022-10-18] MEDS: Mometasone 200 MCG/PUFF (1 INHALER) INH SCH ×2 (10:32→22:51)
[2022-10-18] MEDS: Benzonatate 100 MG CAP PO PRN (10:35)
[2022-10-18] MEDS ORDERED: Calcium Chloride 1 GM/10 ML Abboject SYRINGE ONE (10:51)
[2022-10-18] MEDS ORDERED: Sertraline 25 MG TAB PO SCH (21:00)
[2022-10-18] MEDS: Atorvastatin Calcium 40 MG TAB PO SCH (22:13)
[2022-10-19 05:03] LABS: #Eosinphils 0.1 thou/uL (0.0-0.7); #Lymphocytes 1.4 thou/uL (1.20-3.40); #Monocytes 0.9 thou/uL (0.11-0.59); #Neutrophils 3.9 thou/uL (1.40-6.50); %Eosinophils 1.5 % (0.0-10.0); %Lymphocytes 22.6 % (21.0-51.0); %Monocytes 13.6 % (0.0-10.0); %Neutrophils 62.2 % (42.0-75.0); Hemoglobin 11.8 g/dL (14.0-18.0); Mean Corpuscular HGB CONC 33.7 g/dL (32.0-36.0); Mean Corpuscular Hemoglobin 29.9 pg (27.0-31.0); Mean Corpuscular Volume 88.6 fl (78.0-98.0); Mean Platelet Volume 7.3 fL (7.4-10.4); Platelet Count 192 10x3/uL (130-400); RBC Distribution Width 13.5 % (11.5-14.5); Red Blood Cell (RBC) Count 3.95 mill/uL (4.70-6.10); White Blood Cell (WBC) Count 6.2 10x3/uL (4.8-10.8)
[2022-10-19 05:18] LABS: Anion Gap 10 mmol/L (10-20); BUN (Urea Nitrogen) 21 mg/dL (8.4-25.7); Calc. Creatinine Clearance 61 mL/min (70-130); Calcium 8.5 mg/dL (7.8-10.44); Carbon Dioxide 24 mmol/L (23-31); Chloride 101 mmol/L (98-107); Estimated GFR 83; Glucose 91 mg/dL (83-110); Potassium 3.5 mmol/L (3.5-5.1); Sodium 131 mmol/L (136-145)
[2022-10-19] MEDS: Aspirin Chewable 81 MG TAB PO SCH (09:04)
[2022-10-19] MEDS: Losartan 25 MG TAB PO SCH (09:04)
[2022-10-19] MEDS: Apixaban 2.5 MG TAB PO SCH (09:04)
[2022-10-19] MEDS: Carvedilol 3.125 MG TAB PO SCH (09:05)
[2022-10-19] MEDS: Dronedarone HCl 400 MG TAB PO SCH ×2 (09:05→16:47)
[2022-10-19] MEDS: Mometasone 200 MCG/PUFF (1 INHALER) INH SCH (09:06)
[2022-10-19] MEDS: Benzonatate 100 MG CAP PO PRN (12:43)
[2022-10-19 15:23] VITALS: BP 122/59; TEMP 98.3
[2022-10-20] MEDS ORDERED: Senokot 8.6 MG TAB PO SCH (09:00)
[2022-10-20] MEDS ORDERED: Polyethylene Glycol 3350 17 GM Packet PO SCH (09:00)
[2022-10-20] MEDS ORDERED: Cyanocobalamin (Vitamin B-12) 1,000 MCG TAB PO SCH (09:00)
== END 2022-10-19 17:30 | DRG 312 ==
LOC: ERS 08:07 → ERHOLD 10:18 → 2NO 22:11 → OBSVTOIN 10-19 13:21
PROVIDERS: ADMIT Family Medicine; ATTEND Internal Medicine
DX: R55 Syncope and collapse (principal); U07.1 COVID-19; D69.3 Immune thrombocytopenic purpura; I50.32 Chronic diastolic (congestive) heart failure; I13.0 Hypertensive heart and chronic kidney disease with heart failure and stage 1 through stage 4 chronic kidney disease, or unspecified chronic kidney disease; I48.0 Paroxysmal atrial fibrillation; E78.5 Hyperlipidemia, unspecified; N40.0 Benign prostatic hyperplasia without lower urinary tract symptoms; I25.10 Atherosclerotic heart disease of native coronary artery without angina pectoris; G93.89 Other specified disorders of brain; F41.9 Anxiety disorder, unspecified; F32.A Depression, unspecified; N18.32 Chronic kidney disease, stage 3b; R29.6 Repeated falls; Z88.1 Allergy status to other antibiotic agents; Z79.82 Long term (current) use of aspirin; Z79.899 Other long term (current) drug therapy; Z79.51 Long term (current) use of inhaled steroids; Z79.01 Long term (current) use of anticoagulants; Z86.73 Personal history of transient ischemic attack (TIA), and cerebral infarction without residual deficits
CPT/HCPCS: 36415; 70450; 70551; 71045; 80048; 80053; 80061; 81003; 84484; 85025; 93005; 93306; 94760; 95816; 95819; 95957; 96374; G0378; J0360; U0003; U0005

== ENCOUNTER 2022-12-23 16:32 | Emergency (ER) | payer MEDICARE, OTHER | END 2022-12-23 18:05 | disposition home or self-care (01) | LOC: ERS 16:32 | DX: S09.90XA Unspecified injury of head, initial encounter (principal); I10 Essential (primary) hypertension; W19.XXXA Unspecified fall, initial encounter; Z87.891 Personal history of nicotine dependence | CPT/HCPCS: 70450; 72125; 93005 ==